=== PATIENT | female | born 1970 | race Caucasian/White ===

== ENCOUNTER 2016-06-20 12:57 | Emergency (ER) | payer OTHER ==
[2016-06-20 13:06] VITALS: RESP 18
--- NOTE | 2016-06-20 13:43 | ED ---
Back Pain HPI - General Chief Complaint: Back Pain/Injury Stated Complaint: hip pain Time Seen by Provider: 06/20/16 13:08 Source: patient, RN notes reviewed, old records reviewed Limitations: no limitations - History of Present Illness Initial Comments: Patient is a 46-year-old female with chief complaint of acute exacerbation of lower back pain and it radiates towards her hip. Patient reports that she does have a history of arthritis. She states that the pain usually lasts one day however this pain is persisted for 4 days. She states that she is currently on a pain contract is receiving [place]. She states that she continued to [place] today with very little relief of her symptoms. She denies any peripheral paresthesias and reports that she's had normal urination and bowel movements. She denies any saddle anesthesia. She states that she has seen her primary care provider recently but denies seeing any orthopedic physician. She denies any recent imaging studies of her hips or lumbar spine. She denies any fever, chills, dysuria, hematuria, nausea, vomiting, abdominal pain. - Related Data Home Medications Medication Instructions Recorded Confirmed Atorvastatin Calcium [Lipitor] 10 mg PO DAILY 11/10/14 05/04/15 Cholecalciferol [Vitamin D3] 1,000 unit PO DAILY 11/10/14 05/04/15 Gabapentin [Neurontin] 300 mg PO BID 11/10/14 05/04/15 Insuln Asp Prt/Insulin Aspart 30 unit SQ HS 11/10/14 05/04/15 [NovoLOG MIX 70-30 VIAL] Insuln Asp Prt/Insulin Aspart 65 unit SQ DAILY 11/10/14 05/04/15 [NovoLOG MIX 70-30 VIAL] Lisinopril 30 mg PO DAILY 11/10/14 05/04/15 buPROPion XL [Wellbutrin XL] 3 300ml.bag PO DAILY 11/10/14 05/04/15 Previous Rx's Medication Instructions Recorded Aspirin EC [Ecotrin] 325 mg PO DAILY #30 tablet. 11/12/14 LORazepam [Ativan] 0.5 mg PO Q8HR PRN #30 tab 11/12/14 Nitroglycerin Sl Tabs [Nitrostat] 0.4 mg SUBLINGUAL Q5M PRN #30 tab 11/12/14 Sulfamethox-Tmp 800-160Mg [Bactrim 1 tab PO Q12HR #10 tab 01/22/16 DS 800-160 mg] Acetaminophen-Codeine 300-30mg 1 tab PO Q6H PRN #15 tablet 06/20/16 [Tylenol #3] Cyclobenzaprine [Flexeril] 10 mg PO TID #20 tab 06/20/16 Ibuprofen [Motrin] 600 mg PO Q6HR PRN #15 tab 06/20/16 Allergies Allergy/AdvReac Type Severity Reaction Status Date / Time No Known Allergies Allergy Verified 06/20/16 13:06 Review of Systems ROS Statement: Those systems with pertinent positive or pertinent negative responses have been documented in the HPI. ROS Other: All systems not noted in ROS Statement are negative. 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 pt stated atatime of this admission does'nt have any feelings of hurting herself or suicidal ideations. Smoking Status: Former smoker Past Alcohol Use History: None Reported Additional Past Alcohol Use History / Comment(s): started at age 13 smokes 1/2 ppd smoking cessation booklet given to pt. pt stated she has tried patches without success and can't seen to quit d/t stress. stated i either smoke or eat to much and i sleep way to much. Past Drug Use History: None Reported - Past Family History Father Additional Family Medical History / Comment(s): hypoglcemia, bipolar depression Mother Family Medical History: Cancer Additional Family Medical History / Comment(s): lung cancer General Exam - General Exam Comments Initial Comments: Well appearing 46 year old female, no acute distress. Limitations: no limitations General appearance: alert, in no apparent distress Head exam: Present: atraumatic, normocephalic, normal inspection Eye exam: Present: normal appearance, PERRL, EOMI. Absent: scleral icterus, conjunctival injection, periorbital swelling ENT exam: Present: normal exam, mucous membranes moist Neck exam: Present: normal inspection. Absent: tenderness, meningismus, lymphadenopathy Respiratory exam: Present: normal lung sounds bilaterally. Absent: respiratory distress, wheezes, rales, rhonchi, stridor Cardiovascular Exam: Present: regular rate, normal rhythm, normal heart sounds. Absent: systolic murmur, diastolic murmur, rubs, gallop, clicks GI/Abdominal exam: Present: soft, normal bowel sounds. Absent: distended, tenderness, guarding, rebound, rigid Extremities exam: Present: normal inspection, full ROM, normal capillary refill. Absent: tenderness, pedal edema, joint swelling, calf tenderness Back exam: Present: normal inspection, tenderness, vertebral tenderness (Lumbar vertebral spinal tenderness.). Absent: CVA tenderness (R), CVA tenderness (L), muscle spasm, paraspinal tenderness Neurological exam: Present: alert, oriented X3, CN II-XII intact Psychiatric exam: Present: normal affect, normal mood Skin exam: Present: warm, dry, intact, normal color. Absent: rash Course Vital Signs 06/20/16 06/20/16 13:03 15:13 Temperature 97 F L 97.9 F Pulse Rate 71 58 L Respiratory 18 18 Rate Blood Pressure 189/91 170/82 O2 Sat by Pulse 99 96 Oximetry Medical Decision Making - Medical Decision Making Patient is a 46-year-old female presenting to the with chief complaint of acute exacerbation of chronic back and hip pain. Patient reports that this pain has been occurring for the past 4 days. She did take [place] earlier today with little relief of her symptoms. She denies any recent imaging studies. X- ray of lumbar and hips were obtained. Patient given IM flexeril and toradol. Xrays are negative for any acute process. Patient given Rx for motrin and flexeril, and advised to take at home pain medication and follow up with orthopedic. Patient understands treatment plan and will comply. REturn parameters discussed. Disposition Clinical Impression: Arthropathy of hip Disposition: HOME SELF-CARE Condition: Good Instructions: Osteoarthritis (ED) Additional Instructions: Patient advised to follow-up with his orthopedic physician. Return to emergency department if any alarming signs or symptoms occur. Follow-up with primary care provider. Prescriptions: Acetaminophen-Codeine 300-30mg [Tylenol #3] 1 tab PO Q6H PRN #15 tablet PRN Reason: Pain Cyclobenzaprine [Flexeril] 10 mg PO TID #20 tab Ibuprofen [Motrin] 600 mg PO Q6HR PRN #15 tab PRN Reason: Pain Referrals: Senthil Valencia MD [Primary Care Provider] - 1-2 days Roberto Glover PAC [PHYSICIAN [employer]ES [employer] FINANCIAL REPORT SERVICE] - 1-2 days Time of Disposition: 14:47
--- NOTE | 2016-06-20 13:58 | XR ---
EXAMINATION TYPE: XR lumbar spine 2 or 3V DATE OF EXAM ORDERED: 06/20/2016 1:52 PM HISTORY: Pain. COMPARISON: None. FINDINGS: There has been a previous cholecystectomy. There is a 3.8 mm calcification overlying the lower pole of the left kidney. Vertebral body height is maintained. There is disc space loss at L5-S1 and a vacuum phenomena at this level. There is a bilateral lysis at L5 with a grade 1 spondylolisthesis of L5 on S1. Alignment is o therwise maintained. No other fractures are seen. The pedicles are intact. IMPRESSION: 1. BILATERAL LYSIS AT L5 WITH A GRADE 1 SPONDYLOLISTHESIS OF L5 ON S1. 2. QUESTIONABLE LEFT RENAL CALCULUS. 3. DEGENERATIVE DISC DISEASE, L5-S1.
[2016-06-20] MEDS ORDERED: KETOROLAC 60 MG/2 ML VIAL IM STA (14:00)
[2016-06-20] MEDS ORDERED: ORPHENADRINE 30 MG/ML 2 ML VIAL IM STA (14:00)
--- NOTE | 2016-06-20 14:57 | XR ---
EXAMINATION TYPE: XR Hip LT and AP Pelvis DATE OF EXAM ORDERED: 06/20/2016 1:58 PM HISTORY: Pain. COMPARISON: None. FINDINGS: There are tubal ligation clips projecting over the pelvis. There are multiple phleboliths within the pelvis. No fracture, dislocation or other acute osseous lesion is seen. The left hip appea rs normal. IMPRESSION: NORMAL PELVIS AND LEFT HIP.
[2016-06-20 15:14] VITALS: BP 170/82; PULSE 58; TEMP 97.9
== END 2016-06-20 15:14 | disposition home or self-care (01) ==
LOC: EC 12:57
DX: M16.12 Unilateral primary osteoarthritis, left hip (principal); M43.17 Spondylolisthesis, lumbosacral region; E11.9 Type 2 diabetes mellitus without complications; E78.5 Hyperlipidemia, unspecified; I10 Essential (primary) hypertension; G62.9 Polyneuropathy, unspecified; F31.9 Bipolar disorder, unspecified; Z87.891 Personal history of nicotine dependence; Z79.899 Other long term (current) drug therapy; Z79.4 Long term (current) use of insulin
CPT/HCPCS: 96372 ×3; 99283; 72100; 73502; 99284; J2360; J1885

== ENCOUNTER 2018-01-27 14:36 | Observation (INO) | payer OTHER ==
[2018-01-27] MEDS ORDERED: SODIUM CHLORIDE 0.9% 1,000 ML IV STA ×2 (15:13)
[2018-01-27] MEDS ORDERED: ASPIRIN 81 MG PO STA (15:13)
[2018-01-27] MEDS ORDERED: NITROGLYCERIN SL TABS 0.4 MG TAB SUBLINGUAL STA (15:13)
[2018-01-27 15:33] LABS: Basophils % (A) 1 %; Eosinophils # (A) 0.1 k/uL (0-0.7); Eosinophils % (A) 1 %; HCT 53.7 % (34.0-46.0); HGB 18.1 gm/dL (11.4-16.0); Lymphocytes # (A) 2.1 k/uL (1.0-4.8); Lymphocytes % (A) 34 %; MCH 30.3 pg (25.0-35.0); MCHC 33.7 g/dL (31.0-37.0); Mean Platelet Volume 8.2; Monocytes # (A) 0.4 k/uL (0-1.0); Monocytes % (A) 6 %; Neutrophils # (A) 3.6 k/uL (1.3-7.7); Neutrophils % (A) 57 %; Platelet Count 173 k/uL (150-450); RBC 5.96 m/uL (3.80-5.40); RDW 12.3 % (11.5-15.5); WBC 6.3 k/uL (3.8-10.6)
[2018-01-27 15:44] LABS: ALT 28 U/L (9-52); AST 29 U/L (14-36); Albumin 4.3 g/dL (3.5-5.0); Alkaline Phosphatase 98 U/L (38-126); Amylase 54 U/L (30-110); Anion Gap 15 mmol/L; Blood Urea Nitrogen 9 mg/dL (7-17); Carbon Dioxide 22 mmol/L (22-30); Chloride 96 mmol/L (98-107); Lipase 211 U/L (23-300); Magnesium 1.5 mg/dL (1.6-2.3); Potassium 4.1 mmol/L (3.5-5.1); Sodium 133 mmol/L (137-145); Total Bilirubin 0.7 mg/dL (0.2-1.3); Total Protein 7.6 g/dL (6.3-8.2)
[2018-01-27 15:46] LABS: Creatine Kinase 62 U/L (30-135)
[2018-01-27 15:52] LABS: Glucose 529 mg/dL (74-99)
--- NOTE | 2018-01-27 15:52 | XR ---
EXAMINATION TYPE: XR chest 2V DATE OF EXAM: 01/27/2018 COMPARISON: Chest x-ray March 23, 2017. HISTORY: Chest pain for 3 days. TECHNIQUE: Frontal and lateral views of the chest are obtained. FINDINGS: There is no focal air space opacity, pleural effusion, or pneumothorax seen. The cardiac silhouette size is within normal limits. The osseous structures are intact. IMPRESSION: No acute process. No significant change from prior.
[2018-01-27] MEDS ORDERED: INSULIN REGULAR 100 UNIT/ML VIAL IV ONE (15:53)
--- NOTE | 2018-01-27 15:56 | ED ---
Chest Pain HPI - General Chief Complaint: Chest Pain Stated Complaint: Chest pain Time Seen by Provider: 01/27/18 15:02 Source: patient, RN notes reviewed, old records reviewed Mode of arrival: wheelchair Limitations: no limitations - History of Present Illness Initial Comments: 47-year-old female presents for 3 days of chest pain chest heaviness. Patient had a cardiac cath 5 years ago her doctor. Jaspreet is her clinical rn. Patient states that she's been feeling as heaviness on her chest. She is a smoker. Diabetic. She is poorly managed. She is reports to not using insulin but does not because that caused her to gain weight. Patient states that she never checks her blood sugar. Patient reports that she did shortness of breath on exertion. Patient denies any recent fever, chills, shortness of breath, back pain, abdominal pain, nausea vomiting, numbness or tingling, dysuria or hematuria, constipation or diarrhea, headaches or visual changes, or any other current symptoms - Related Data Home Medications Medication Instructions Recorded Confirmed Atorvastatin Calcium [Lipitor] 10 mg PO DAILY 11/10/14 01/27/18 Artificial Tears-Hypromellose 1 drop BOTH EYES BID 01/27/18 01/27/18 [Artificial Tear Drops] Aspirin 325 mg PO DAILY 01/27/18 01/27/18 Previous Rx's Medication Instructions Recorded LORazepam [Ativan] 0.5 mg PO Q8HR PRN #30 tab 11/12/14 Nitroglycerin Sl Tabs [Nitrostat] 0.4 mg SUBLINGUAL Q5M PRN #30 tab 11/12/14 Allergies Allergy/AdvReac Type Severity Reaction Status Date / Time sucralose AdvReac Intermediate Nausea & Verified 01/27/18 15:09 [From Splenda (sucralose)] Vomiting & Diarrhea Review of Systems ROS Statement: Those systems with pertinent positive or pertinent negative responses have been documented in the HPI. ROS Other: All systems not noted in ROS Statement are negative. EKG Findings - EKG Comments: EKG Findings:: EKG performed at 1455 shows normal sinus rhythm normal EKG noted. Ventricular rate of 70 bpm. Intervals 184 ms. Jainism 80 ms. QT QTC 390/429 ms. No evidence of ST elevation or T-wave inversion. Past Medical History Past Medical History: Diabetes Mellitus, Hyperlipidemia, Hypertension, Myocardial Infarction ([place]) Additional Past Medical History / Comment(s): Rare migraines, IDDM type II, neuropathy bilateral feet. 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 He of an aortic aneurysm rupture in his 70's Mother Family Medical History: Cancer Additional Family Medical History / Comment(s): Mother of lung cancer that metastasized to her brain when she was in her 30's. General Exam - General Exam Comments Initial Comments: 47-year-old female. Alert and oriented 3. Patient appearsin distress. Limitations: no limitations General appearance: alert, in no apparent distress Head exam: Present: atraumatic, normocephalic, normal inspection Eye exam: Present: normal appearance, PERRL, EOMI. Absent: scleral icterus, conjunctival injection, periorbital swelling ENT exam: Present: normal exam, mucous membranes moist Neck exam: Present: normal inspection. Absent: tenderness, meningismus, lymphadenopathy Respiratory exam: Present: normal lung sounds bilaterally. Absent: respiratory distress, wheezes, rales, rhonchi, stridor Cardiovascular Exam: Present: regular rate, normal rhythm, normal heart sounds. Absent: systolic murmur, diastolic murmur, rubs, gallop, clicks GI/Abdominal exam: Present: soft, normal bowel sounds. Absent: distended, tenderness, guarding, rebound, rigid Extremities exam: Present: normal inspection, full ROM, normal capillary refill. Absent: tenderness, pedal edema, joint swelling, calf tenderness Back exam: Present: normal inspection Neurological exam: Present: alert, oriented X3, CN II-XII intact Psychiatric exam: Present: normal affect, normal mood Skin exam: Present: warm, dry, intact, normal color. Absent: rash Course Vital Signs 01/27/18 14:41 Temperature 98.3 F Pulse Rate 91 Respiratory 16 Rate Blood Pressure 159/96 O2 Sat by Pulse 97 Oximetry Chest Pain MDM - MDM Patient is a 47-year-old female with coronary including diabetes, hyperlipidemia. Patient arrives to emergency room with 3 days of chest pain. It is relieved with aspirin and nitro. Patient is a poorly controlled diabetic. Blood sugar is elevated. He was started on IV fluids and insulin. At this time patient's chest x-ray was reviewed and negative for any acute process. Normal troponin. I am concerned with unstable anginal symptoms as well as the elevated blood sugar the Patient needs further evaluation for chest pain. Likely needing a stress test. Patient will be admitted at this time to Dr. Leon group. Disposition Clinical Impression: Chest pain, Hyperglycemia Disposition: ADMITTED IP TO THIS HOSP Condition: Stable Is patient prescribed a controlled substance at d/c from ED?: No Referrals: Senthil Valencia MD [Primary Care Provider] - 1-2 days Time of Disposition: 17:27
[2018-01-27 15:59] LABS: Creatine Kinase MB 1.4 ng/mL (0.0-2.4); Troponin I <0.012 ng/mL (0.000-0.034)
[2018-01-27] MEDS ORDERED: MORPHINE SULFATE 4 MG/ML SYRINGE IV PRN (17:31)
[2018-01-27] MEDS ORDERED: HEPARIN SODIUM,PORCINE 5,000 UNIT/ML 1 ML VIAL IV ONE (17:31)
[2018-01-27] MEDS ORDERED: NITROGLYCERIN SL TABS 0.4 MG TAB SUBLINGUAL PRN (17:31)
[2018-01-27] MEDS ORDERED: HEPARIN SOD,PORK IN 0.45% NACL 25,000 UNIT in 0.45% NACL 1 500ML.BAG IV SCH (17:45)
[2018-01-27 18:47] LABS: Glucose,Whole Blood 370 mg/dL (75-99)
[2018-01-27 18:51] LABS: D-Dimer 0.35 mg/L FEU (<0.60); INR 1.1 (<1.2); Partial Thromboplastin Time 21.1 sec (22.0-30.0); Prothrombin Time 10.4 sec (9.0-12.0)
[2018-01-27 22:05] LABS: Glucose,Whole Blood 279 mg/dL (75-99)
[2018-01-27 22:48] LABS: Creatine Kinase 46 U/L (30-135)
[2018-01-27 23:02] LABS: Creatine Kinase MB 1.2 ng/mL (0.0-2.4); Troponin I <0.012 ng/mL (0.000-0.034)
[2018-01-28 00:58] LABS: Glucose,Whole Blood 266 mg/dL (75-99)
[2018-01-28] MEDS: INSULIN ASPART 100 UNIT/ML 1 ML 10 ML VIAL SQ SCH ×3 (01:13→12:31)
[2018-01-28 03:25] LABS: Cholesterol 242 mg/dL (<200); HDL Cholesterol 31 mg/dL (40-60); Triglycerides 442 mg/dL (<150)
[2018-01-28 03:51] LABS: Creatine Kinase 43 U/L (30-135)
[2018-01-28 03:59] LABS: Creatine Kinase MB 1.2 ng/mL (0.0-2.4); Troponin I <0.012 ng/mL (0.000-0.034)
[2018-01-28 07:00] LABS: Glucose,Whole Blood 240 mg/dL (75-99)
--- NOTE | 2018-01-28 08:34 | P.CRDCN ---
<ReginaldmontycoleHector - Last Filed: 01/28/18 08:33> History of Present Illness History of present illness: 47-year-old female presenting with constant chest discomfort that would go away when she was sleeping for the last 3 days. No palpitations no other symptoms. Uncontrolled diabetes. Noncompliant with her insulin she stopped it because she thought she was gaining weight. Normal cardiac enzymes normal ECG follow with Dr. Johns Suggest 2-D echo and Doppler study to assess cardiac structure and function given her constant chest discomfort. I don't hear a rub Follow-up with Dr. Johns as an outpatient Diabetes management per primary team Past Medical History Past Medical History: Chest Pain / Angina, Diabetes Mellitus, Hyperlipidemia, Hypertension, Myocardial Infarction ([place]) Additional Past Medical History / Comment(s): 01-27-18 pt wants flu vaccine while here. Rare migraines, IDDM type II, neuropathy bilateral feet.past uti,bipolar depression Last Myocardial Infarction Date:: 2014 History of Any Multi-Drug Resistant Organisms: MRSA Date of last positivie culture/infection: 2013/MRSA MDRO Source:: abdomen Past Surgical History: Cholecystectomy, Heart Catheterization, Tubal Ligation Additional Past Surgical History / Comment(s): Lorenzo eye sx as child to correct lazy eye, Past Anesthesia/Blood Transfusion Reactions: Postoperative Nausea & Vomiting ( PONV) Smoking Status: Current every day smoker - Past Family History Father Additional Family Medical History / Comment(s): Father had hypoglcemia, bipolar depression. He of an aortic aneurysm rupture in his 70's Mother Family Medical History: Cancer Additional Family Medical History / Comment(s): Mother of lung cancer that metastasized to her brain when she was in her 30's. Medications and Allergies Home Medications Medication Instructions Recorded Confirmed Type Atorvastatin Calcium [Lipitor] 10 mg PO DAILY 11/10/14 01/27/18 History LORazepam [Ativan] 0.5 mg PO Q8HR PRN #30 tab 11/12/14 01/27/18 Rx Nitroglycerin Sl Tabs [Nitrostat] 0.4 mg SUBLINGUAL Q5M PRN #30 tab 11/12/14 Rx Artificial Tears-Hypromellose 1 drop BOTH EYES BID 01/27/18 01/27/18 History [Artificial Tear Drops] Aspirin 325 mg PO DAILY 01/27/18 01/27/18 History Allergies Allergy/AdvReac Type Severity Reaction Status Date / Time sucralose AdvReac Intermediate Nausea & Verified 01/27/18 15:09 [From Splenda (sucralose)] Vomiting & Diarrhea Physical Exam Vitals: Vital Signs Temp Pulse Pulse Resp BP BP Pulse Ox 01/28/18 04:29 97.0 F L 70 164/75 96 01/27/18 23:33 97.9 F 66 15 168/93 96 01/27/18 22:45 98 01/27/18 21:59 97.9 F 76 16 177/97 98 01/27/18 21:20 97.7 F 60 18 150/86 99 01/27/18 20:00 97.7 F 57 L 11 L 156/79 99 01/27/18 19:50 61 16 156/79 96 01/27/18 19:40 59 L 16 156/79 98 01/27/18 19:30 64 14 174/94 97 01/27/18 19:20 58 L 16 174/94 99 01/27/18 19:10 60 17 174/94 97 01/27/18 19:00 67 16 175/97 98 01/27/18 18:13 70 17 136/65 94 L 01/27/18 17:00 76 17 129/74 96 01/27/18 16:00 76 19 157/82 94 L 01/27/18 14:41 98.3 F 91 16 159/96 97 Intake and Output 01/27/18 01/28/18 01/28/18 22:59 06:59 14:59 Intake Total 754.333 Balance 754.333 Intake: Intake, IV Titration 754.333 Amount Heparin Sod,Pork in 0.45% 317.333 NaCl 25,000 unit In 0.45 % NaCl 1 500ml.bag @ 9.8 UNITS/KG/HR 20 mls/hr IV .Q24H [facility] Rx#:[id number] Sodium Chloride 0.9% 1, 437 000 ml @ 100 mls/hr IV . Q10H [facility] Rx#:[id number] Other: Weight 96.6 kg Results 01/27/18 15:00 01/27/18 15:00 Cardiac Enzymes 01/27/18 01/27/18 01/27/18 Range/Units 15:00 15:00 21:59 AST 29 (14-36) U/L CK-MB (CK-2) 1.4 1.2 (0.0-2.4) ng/mL Troponin I <0.012 <0.012 (0.000-0.034) ng/mL 01/28/18 Range/Units 02:10 AST (14-36) U/L CK-MB (CK-2) 1.2 (0.0-2.4) ng/mL Troponin I <0.012 (0.000-0.034) ng/mL Coagulation 01/27/18 01/28/18 Range/Units 18:07 02:10 PT 10.4 (9.0-12.0) sec APTT 21.1 L 25.6 (22.0-30.0) sec Lipids 01/28/18 Range/Units 02:10 Triglycerides 442 H (<150) mg/dL Cholesterol 242 H (<200) mg/dL HDL Cholesterol 31 L (40-60) mg/dL CBC 01/27/18 Range/Units 15:00 WBC 6.3 (3.8-10.6) k/uL RBC 5.96 H (3.80-5.40) m/uL Hgb 18.1 H (11.4-16.0) gm/dL Hct 53.7 H (34.0-46.0) % Plt Count 173 (150-450) k/uL Comprehensive Metabolic Panel 01/27/18 Range/Units 15:00 Sodium 133 L (137-145) mmol/L Potassium 4.1 (3.5-5.1) mmol/L Chloride 96 L (98-107) mmol/L Carbon Dioxide 22 (22-30) mmol/L BUN 9 (7-17) mg/dL Creatinine 0.46 L (0.52-1.04) mg/dL Glucose 529 H* (74-99) mg/dL Calcium 10.0 (8.4-10.2) mg/dL AST 29 (14-36) U/L ALT 28 (9-52) U/L Alkaline Phosphatase 98 (38-126) U/L Total Protein 7.6 (6.3-8.2) g/dL Albumin 4.3 (3.5-5.0) g/dL Current Medications Generic Name Dose Route Start Last Admin Trade Name Freq PRN Reason Stop Dose Admin Insulin Aspart 0 unit 01/27/18 21:00 01/28/18 01:13 Novolog SQ 5 unit ACHS [facility] Administration Protocol Morphine Sulfate 4 mg 01/27/18 17:31 Morphine Sulfate (Inj) IV Q5M PRN Chest Pain Nitroglycerin 0.4 mg 01/27/18 17:31 Nitrostat SUBLINGUAL Q5M PRN Chest Pain Intake and Output 01/27/18 01/28/18 01/28/18 22:59 06:59 14:59 Intake Total 754.333 Balance 754.333 Intake: Intake, IV Titration 754.333 Amount Heparin Sod,Pork in 0.45% 317.333 NaCl 25,000 unit In 0.45 % NaCl 1 500ml.bag @ 9.8 UNITS/KG/HR 20 mls/hr IV .Q24H [facility] Rx#:[id number] Sodium Chloride 0.9% 1, 437 000 ml @ 100 mls/hr IV . Q10H [facility] Rx#:[id number] Other: Weight 96.6 kg 01/27/18 15:00 01/27/18 15:00 <Beata Nichole - Last Filed: 01/28/18 10:53> History of Present Illness History of present illness: Mrs. Johnson is a pleasant 47-year-old female past medical history significant for diabetes mellitus, hypertension, dyslipidemia, chronic nicotine dependence regular marijuana use. She denies history of coronary artery disease. She follows with Dr. Zuniga in the office. We've been asked to see her in consultation for symptoms of chest pain. She states for the previous 3 days she has had a constant heavy pressure sensation in the midsternal region with radiation both sides of her chest. No radiation down the arm, back, neck or jaw. This is not associated with shortness of breath, dizziness, palpitations, nausea, vomiting or diaphoresis. Her chest pain has been constant with no specific aggravating or alleviating factors. She states when she goes to sleep at night she doesn't feel the pain persisted and she wakes up it comes back. She states she is under a lot of stress at home and she feels the stressors have been causing her chest discomfort. She also is a diabetic who has not been taking her medications because she states it made her gain weight. Blood sugar on admission was over 500. She underwent cardiac catheterization 2014 which revealed mild 3 vessel coronary artery disease risk factor modifications recommended at that time. EKG reveals sinus mechanism with no acute ST or T wave abnormalities noted. Chest x-ray negative for an acute cardiopulmonary process. Laboratory data reviewed, hemoglobin 18.1, platelets 173, d-dimer 0.35, sodium 133, potassium 4.1, creatinine 0.46, magnesium 1.5, cardiac enzymes negative 3 , and T proBNP 69, lipid panel reviewed. Current cardiac medications include atorvastatin 10 mg daily and aspirin 325 mg daily. She last saw Dr. Zuniga in the office in 2015 and at that time she was on lisinopril 30 mg daily and Norvasc 10 mg daily. At the time of my exam: CONSTITUTIONAL: Denies fever. Denies chills. EYES: Denies blurred vision. Denies vision changes. Denies eye pain. EARS, NOSE, MOUTH & THROAT: Denies headache. Denies sore throat. Denies ear pain. CARDIOVASCULAR: Denies chest pain. Denies shortness of breath. Denies orthopnea. Denies PND. Denies palpitations. RESPIRATORY: Denies cough. GASTROINTESTINAL: Denies abdominal pain. Denies diarrhea. Denies constipation. Denies nausea. Denies vomiting. MUSCULOSKELETAL: Denies myalgias. INTEGUMENTARY: Denies pruitis. Denies rash. NEUROLOGIC: Denies numbness. Denies tingling. Denies weakness. PSYCHIATRIC: Denies anxiety. Denies depression. ENDOCRINE: Denies fatigue. Denies weight change. Denies polydipsia. Denies polyurina. GENITOURINARY: Denies burning, hematuria or urgency with micturation. HEMATOLOGIC: Denies history of anemia. Denies bleeding. Blood pressure 153/91 heart rate 88 afebrile maintaining oxygen saturation on room air GENERAL: This is a 47-year-old female in no apparent distress at the time of my examination. Obese. HEENT: Head is atraumatic, normocephalic. Pupils are equal, round. Sclerae anicteric. Conjunctivae are clear. Mucous membranes of the mouth are moist. Neck is supple. There is no jugular venous distention. No carotid bruit is heard. LUNGS: Clear to auscultation no wheezes, rales or rhonchi. No chest wall tenderness is noted on palpation or with deep breathing. HEART: Regular rate and rhythm without murmurs, rubs or gallops. S1 and S2 heard. ABDOMEN: Soft, nontender. Bowel sounds are heard. No organomegaly noted. EXTREMITIES: No evidence of peripheral edema and no calf tenderness noted. VASCULAR: Radial and dorsalis pedis pulses palpated, no evidence of clubbing. NEUROLOGIC: Patient is awake, alert and oriented x3. ASSESSMENT Chest pain, atypical. An acute coronary event has been ruled out no EKG evidence of ischemia and negative cardiac enzymes. Diabetes mellitus, uncontrolled Hypertension Dyslipidemia Chronic nicotine dependence Marijuana use PLAN An acute coronary event has been ruled out was no EKG evidence of ischemia and negative cardiac enzymes. Obtain 2-D echocardiogram and Doppler study to assess cardiac structure and function. Cardiac medication adjustments to include aspirin 81 mg daily, lisinopril 20 mg dialy and atorvastatin 40 mg daily. Follow-up with Dr. Zuniga in 2-3 weeks. Ongoing medical management of diabetes. No further cardiac workup as an inpatient. Thank you kindly for this consultation. Nurse Practitioner note has been reviewed, I agree with a documented findings and plan of care. Patient was seen and examined. Physical Exam Vitals: Vital Signs Temp Pulse Pulse Resp BP BP Pulse Ox 01/28/18 07:35 98.3 F 80 18 153/91 97 01/28/18 04:29 97.0 F L 70 164/75 96 01/27/18 23:33 97.9 F 66 15 168/93 96 01/27/18 22:45 98 01/27/18 21:59 97.9 F 76 16 177/97 98 01/27/18 21:20 97.7 F 60 18 150/86 99 01/27/18 20:00 97.7 F 57 L 11 L 156/79 99 01/27/18 19:50 61 16 156/79 96 01/27/18 19:40 59 L 16 156/79 98 01/27/18 19:30 64 14 174/94 97 01/27/18 19:20 58 L 16 174/94 99 01/27/18 19:10 60 17 174/94 97 01/27/18 19:00 67 16 175/97 98 01/27/18 18:13 70 17 136/65 94 L 01/27/18 17:00 76 17 129/74 96 01/27/18 16:00 76 19 157/82 94 L 01/27/18 14:41 98.3 F 91 16 159/96 97 Intake and Output 01/27/18 01/28/18 01/28/18 22:59 06:59 14:59 Intake Total 754.333 Balance 754.333 Intake: Intake, IV Titration 754.333 Amount Heparin Sod,Pork in 0.45% 317.333 NaCl 25,000 unit In 0.45 % NaCl 1 500ml.bag @ 9.8 UNITS/KG/HR 20 mls/hr IV .Q24H [facility] Rx#:[id number] Sodium Chloride 0.9% 1, 437 000 ml @ 100 mls/hr IV . Q10H [facility] Rx#:[id number] Other: Weight 96.6 kg Results 01/27/18 15:00 01/27/18 15:00 Cardiac Enzymes 01/27/18 01/27/18 01/27/18 Range/Units 15:00 15:00 21:59 AST 29 (14-36) U/L CK-MB (CK-2) 1.4 1.2 (0.0-2.4) ng/mL Troponin I <0.012 <0.012 (0.000-0.034) ng/mL 01/28/18 Range/Units 02:10 AST (14-36) U/L CK-MB (CK-2) 1.2 (0.0-2.4) ng/mL Troponin I <0.012 (0.000-0.034) ng/mL Coagulation 01/27/18 01/28/18 Range/Units 18:07 02:10 PT 10.4 (9.0-12.0) sec APTT 21.1 L 25.6 (22.0-30.0) sec Lipids 01/28/18 Range/Units 02:10 Triglycerides 442 H (<150) mg/dL Cholesterol 242 H (<200) mg/dL HDL Cholesterol 31 L (40-60) mg/dL CBC 01/27/18 Range/Units 15:00 WBC 6.3 (3.8-10.6) k/uL RBC 5.96 H (3.80-5.40) m/uL Hgb 18.1 H (11.4-16.0) gm/dL Hct 53.7 H (34.0-46.0) % Plt Count 173 (150-450) k/uL Comprehensive Metabolic Panel 01/27/18 Range/Units 15:00 Sodium 133 L (137-145) mmol/L Potassium 4.1 (3.5-5.1) mmol/L Chloride 96 L (98-107) mmol/L Carbon Dioxide 22 (22-30) mmol/L BUN 9 (7-17) mg/dL Creatinine 0.46 L (0.52-1.04) mg/dL Glucose 529 H* (74-99) mg/dL Calcium 10.0 (8.4-10.2) mg/dL AST 29 (14-36) U/L ALT 28 (9-52) U/L Alkaline Phosphatase 98 (38-126) U/L Total Protein 7.6 (6.3-8.2) g/dL Albumin 4.3 (3.5-5.0) g/dL Current Medications Generic Name Dose Route Start Last Admin Trade Name Freq PRN Reason Stop Dose Admin Insulin Aspart 0 unit 01/27/18 21:00 01/28/18 10:06 Novolog SQ 5 unit ACHS [facility] Administration Protocol Morphine Sulfate 4 mg 01/27/18 17:31 Morphine Sulfate (Inj) IV Q5M PRN Chest Pain Nitroglycerin 0.4 mg 01/27/18 17:31 Nitrostat SUBLINGUAL Q5M PRN Chest Pain Intake and Output 01/27/18 01/28/18 01/28/18 22:59 06:59 14:59 Intake Total 754.333 Balance 754.333 Intake: Intake, IV Titration 754.333 Amount Heparin Sod,Pork in 0.45% 317.333 NaCl 25,000 unit In 0.45 % NaCl 1 500ml.bag @ 9.8 UNITS/KG/HR 20 mls/hr IV .Q24H [facility] Rx#:[id number] Sodium Chloride 0.9% 1, 437 000 ml @ 100 mls/hr IV . Q10H STA Rx#:[id number] Other: Weight 96.6 kg 01/27/18 15:00 01/27/18 15:00
[2018-01-28 08:46] VITALS: RESP 18
[2018-01-28 09:28] LABS: Hemoglobin A1C 12.4 % (4.0-6.0)
--- NOTE | 2018-01-28 10:59 | ECHOF ---
Referral Reason: MEASUREMENTS -------- HEIGHT: 170.2 cm WEIGHT: 96.2 kg BP: RVIDd: 2.8 cm (< 3.3) IVSd: 1.6 cm (0.6 - 1.1) LVIDd: 3.8 cm (3.9 - 5.3) LVPWd: 1.6 cm (0.6 - 1.1) IVSs: 2.4 cm LVIDs: 1.7 cm LVPWs: 1.8 cm LAESV Index (A-L): 18.59 ml/m Ao Diam: 2.5 cm (2.0 - 3.7) AV Cusp: 2.0 cm (1.5 - 2.6) LA Diam: 3.2 cm (2.7 - 3.8) MV EXCURSION: 14.924 mm (> 18.000) MV EF SLOPE: 96 mm/s (70 - 150) EPSS: 0.3 cm MV E Mars: 0.66 m/s MV DecT: 208 ms MV A Mars: 0.71 m/s MV E/A Ratio: 0.93 RAP: 5.00 mmHg RVSP: 11.42 mmHg FINDINGS -------- Sinus rhythm. This was a technically good study. The left ventricular size is normal. There is moderate concentric left ventricular hypertrophy. O verall left ventricular systolic function is normal with, an EF between 55 - 60 %. The right ventricle is normal in size and function. The left atrium is normal in size. The right atrium is normal in size. The aortic valve is trileaflet, and appears structurally normal. No aortic stenosis or regurgitation. There is trace mitral regurgitation. Trace tricuspid regurgitation present. The right ventricular systolic pressure, as measured by Dopp ler, is 11.42mmHg. Pulmonic valve appears structurally normal. The aortic root size is normal. There is a trivial pericardial effusion present. CONCLUSIONS -------- 1. Sinus rhythm. 2. This was a technically good study. 3. The left ventricular size is normal. 4. There is moderate concentric left ventricular hypertrophy. 5. Overall left ventricular systolic function is normal with, an EF between 55 - 60 %. 6. The right ventricle is normal in size and function. 7. The left atrium is normal in size. 8. The right atrium is normal in size. 9. The aortic valve is trileaflet, and appears structurally normal. No aortic stenosis or regurgitati on. 10. There is trace mitral regurgitation. 11. Trace tricuspid regurgitation present. 12. The right ventricular systolic pressure, as measured by Doppler, is 11.42mmHg. 13. Pulmonic valve appears structurally normal. 14. The aortic root size is normal. 15. There is a trivial pericardial effusion present. HVAC ENGINEERING TECHNICIAN: Gloria Spencer RDCS
[2018-01-28] MEDS ORDERED: ATORVASTATIN 40 MG TAB PO SCH (11:00)
[2018-01-28] MEDS ORDERED: LISINOPRIL 20 MG TAB PO SCH (11:00)
[2018-01-28] MEDS ORDERED: ASPIRIN 81 MG PO SCH (11:00)
[2018-01-28 12:03] LABS: Glucose,Whole Blood 318 mg/dL (75-99)
[2018-01-28] MEDS ORDERED: metFORMIN 850 MG TAB PO SCH (12:15)
--- NOTE | 2018-01-28 12:17 | P.HPIM ---
History of Present Illness [place] is old female with past medical history of coronary artery disease status post cardiac cath, diabetes mellitus2, diabetic neuropathy, depression hypertension, hyperlipidemia, who presents because of chest pain. Patient states that chest pain is centrally radiating to the left side was severe when she came in for 3 days duration felt like tightness and constant. Associated with some sweating but no nausea and vomiting. On admission her vitals were stable. Labs shows high glucose at 529, creatinine 0.4, sodium 133 corrected for hyperglycemia. Magnesium 1.5. Hemoglobin A1c 12.4%. Repeat blood sugar was 370 and 309. LFT was unremarkable. His x-ray was negative for acute cardiopulmonary process. Professional Golf Tournament Player evaluated the patient and recommended an echocardiography showing ejection fraction of 55-60%. With moderate left ventricular hypertrophy. However patient chest pain is completely resolved by the time I saw her. pt has been cleared by cardiology for discharge patient states she has not been compliant with insulin for almost 1 year now. Patient states she has history of type 2 diabetes for 15-20 years and she was using to take metformin however since her last about 10 years ago they switched her to insulin and she was taken in the last year when she stopped taking it because her weight was almost 300 pounds and she lost about 8 pounds over the cedar. She denies signs symptoms of DKA over this year. And she hasn' t been followed up with her PCP during the same time for this reason. I have detailed discussion with the patient and she agrees to take pills. She agrees to take metformin 850 mg twice a day. And to follow up with lye boiler as an outpatient. appointment was made with on 02/24/18 and she agrees to and states she will call and make appointment with her pcp in one week as instructed to her Patient was cleared by cardiology team for discharge Review of Systems CONSTITUTIONAL: No fever, no malaise, no fatigue. HEENT: No recent visual problems or hearing problems. Denied any sore throat. CARDIOVASCULAR: No orthopnea, PND, no palpitations, no syncope. PULMONARY: No shortness of breath, no cough, no hemoptysis. GASTROINTESTINAL: No diarrhea, no nausea, no vomiting, no abdominal pain. Normoactive bowel sounds. NEUROLOGICAL: No headaches, no weakness, no numbness. HEMATOLOGICAL: Denies any bleeding or petechiae. GENITOURINARY: Denies any burning micturition, frequency, or urgency. MUSCULOSKELETAL/RHEUMATOLOGICAL: Denies any joint pain, swelling, or any muscle pain. ENDOCRINE: Denies any polyuria or polydipsia. Past Medical History Past Medical History: Chest Pain / Angina, Diabetes Mellitus, Hyperlipidemia, Hypertension, Myocardial Infarction ([place]) Additional Past Medical History / Comment(s): 01-27-18 pt wants flu vaccine while here. Rare migraines, IDDM type II, neuropathy bilateral feet.past uti,bipolar depression Last Myocardial Infarction Date:: 2014 History of Any Multi-Drug Resistant Organisms: MRSA Date of last positivie culture/infection: 2013/MRSA MDRO Source:: abdomen Past Surgical History: Cholecystectomy, Heart Catheterization, Tubal Ligation Additional Past Surgical History / Comment(s): Lorenzo eye sx as child to correct lazy eye, Past Anesthesia/Blood Transfusion Reactions: Postoperative Nausea & Vomiting ( PONV) Smoking Status: Current every day smoker - Past Family History Father Additional Family Medical History / Comment(s): Father had hypoglcemia, bipolar depression. He of an aortic aneurysm rupture in his 70's Mother Family Medical History: Cancer Additional Family Medical History / Comment(s): Mother of lung cancer that metastasized to her brain when she was in her 30's. Medications and Allergies Home Medications Medication Instructions Recorded Confirmed Type Atorvastatin Calcium [Lipitor] 10 mg PO DAILY 11/10/14 01/27/18 History LORazepam [Ativan] 0.5 mg PO Q8HR PRN #30 tab 11/12/14 01/27/18 Rx Nitroglycerin Sl Tabs [Nitrostat] 0.4 mg SUBLINGUAL Q5M PRN #30 tab 11/12/14 Rx Artificial Tears-Hypromellose 1 drop BOTH EYES BID 01/27/18 01/27/18 History [Artificial Tear Drops] Aspirin 325 mg PO DAILY 01/27/18 01/27/18 History Allergies Allergy/AdvReac Type Severity Reaction Status Date / Time sucralose AdvReac Intermediate Nausea & Verified 01/27/18 15:09 [From Splenda (sucralose)] Vomiting & Diarrhea Physical Exam Vitals: Vital Signs Temp Pulse Pulse Resp BP BP Pulse Ox 01/28/18 07:35 98.3 F 80 18 153/91 97 01/28/18 04:29 97.0 F L 70 164/75 96 01/27/18 23:33 97.9 F 66 15 168/93 96 01/27/18 22:45 98 01/27/18 21:59 97.9 F 76 16 177/97 98 01/27/18 21:20 97.7 F 60 18 150/86 99 01/27/18 20:00 97.7 F 57 L 11 L 156/79 99 01/27/18 19:50 61 16 156/79 96 01/27/18 19:40 59 L 16 156/79 98 01/27/18 19:30 64 14 174/94 97 01/27/18 19:20 58 L 16 174/94 99 01/27/18 19:10 60 17 174/94 97 01/27/18 19:00 67 16 175/97 98 01/27/18 18:13 70 17 136/65 94 L 01/27/18 17:00 76 17 129/74 96 01/27/18 16:00 76 19 157/82 94 L 01/27/18 14:41 98.3 F 91 16 159/96 97 Intake and Output 01/27/18 01/28/18 01/28/18 22:59 06:59 14:59 Intake Total 754.333 Balance 754.333 Intake: Intake, IV Titration 754.333 Amount Heparin Sod,Pork in 0.45% 317.333 NaCl 25,000 unit In 0.45 % NaCl 1 500ml.bag @ 9.8 UNITS/KG/HR 20 mls/hr IV .Q24H [facility] Rx#:[id number] Sodium Chloride 0.9% 1, 437 000 ml @ 100 mls/hr IV . Q10H STA Rx#:[id number] Other: Weight 96.6 kg GENERAL: The patient is alert and oriented x3, not in any acute distress. Well developed, well nourished. HEENT: Pupils are round and equally reacting to light. EOMI. No scleral icterus. No conjunctival pallor. Normocephalic, atraumatic. No pharyngeal erythema. No thyromegaly. CARDIOVASCULAR: S1 and S2 present. No murmurs, rubs, or gallops. PULMONARY: Chest is clear to auscultation, no wheezing or crackles. ABDOMEN: Soft, nontender, nondistended, normoactive bowel sounds. No palpable organomegaly. MUSCULOSKELETAL: No joint swelling or deformity. EXTREMITIES: No cyanosis, clubbing, or pedal edema. NEUROLOGICAL: Gross neurological examination did not reveal any focal deficits. SKIN: No rashes. Results CBC & Chem 7: 01/27/18 15:00 01/27/18 15:00 Labs: Abnormal Lab Results - Last 24 Hours (Table) 01/27/18 01/27/18 01/27/18 Range/Units 15:00 15:00 18:07 RBC 5.96 H (3.80-5.40) m/uL Hgb 18.1 H (11.4-16.0) gm/dL Hct 53.7 H (34.0-46.0) % APTT 21.1 L (22.0-30.0) sec Sodium 133 L (137-145) mmol/L Chloride 96 L (98-107) mmol/L Creatinine 0.46 L (0.52-1.04) mg/dL Glucose 529 H* (74-99) mg/dL POC Glucose (mg/dL) (75-99) mg/dL Hemoglobin A1c (4.0-6.0) % Magnesium 1.5 L (1.6-2.3) mg/dL Triglycerides (<150) mg/dL Cholesterol (<200) mg/dL HDL Cholesterol (40-60) mg/dL 01/27/18 01/27/18 01/27/18 Range/Units 18:43 21:59 22:01 RBC (3.80-5.40) m/uL Hgb (11.4-16.0) gm/dL Hct (34.0-46.0) % APTT (22.0-30.0) sec Sodium (137-145) mmol/L Chloride (98-107) mmol/L Creatinine (0.52-1.04) mg/dL Glucose (74-99) mg/dL POC Glucose (mg/dL) 370 H 279 H (75-99) mg/dL Hemoglobin A1c 12.4 H (4.0-6.0) % Magnesium (1.6-2.3) mg/dL Triglycerides (<150) mg/dL Cholesterol (<200) mg/dL HDL Cholesterol (40-60) mg/dL 1001/28/18 01/28/18 Range/Units 00:57 02:10 06:56 RBC (3.80-5.40) m/uL Hgb (11.4-16.0) gm/dL Hct (34.0-46.0) % APTT (22.0-30.0) sec Sodium (137-145) mmol/L Chloride (98-107) mmol/L Creatinine (0.52-1.04) mg/dL Glucose (74-99) mg/dL POC Glucose (mg/dL) 266 H 240 H (75-99) mg/dL Hemoglobin A1c (4.0-6.0) % Magnesium (1.6-2.3) mg/dL Triglycerides 442 H (<150) mg/dL Cholesterol 242 H (<200) mg/dL HDL Cholesterol 31 L (40-60) mg/dL Thrombosis Risk Factor Assmnt - Choose All That Apply Any of the Below Risk Factors Present?: Yes Each Factor Represents 1 point: Age 41-60 years, Obesity (BMI >25) Thrombosis Risk Factor Assessment Total Risk Factor Score: 2 Thrombosis Risk Factor Assessment Level: Low Risk Assessment and Plan Assessment: Chest pain, resolved. Cardiac etiology is been ruled out. Type 2 diabetes mellitus, uncontrolled Diabetic neuropathy Noncompliance to treatment. Hypertension Hyperlipidemia Plan: Since 47 years old female who presents with chest pain is completely resolved. Cardiology evaluated the patient's with echocardiogram showing ejection fraction to 55-60%. Continue same treatment. Continue symptomatic treatment. Resume home medications. Monitor lytes and vitals. DVT and GI prophylaxis. Further recommendations based on the clinical course of the patient
--- NOTE | 2018-01-28 12:27 | P.DS ---
Providers Date of admission: 01/27/18 17:27 Attending physician: Andre Leon Consults: 01/27/18 17:32 Consult Physician Urgent Consulting Provider: Leigh Vogel Consult Reason/Comments: Chest pain Do you want consulting provider notified?: Yes Primary care physician: Senthil Valencia [facility] Course: please refer to my H&P from today, including physical exam Lipitor dose was increased from 10 mg to 40 milligrams due to hyperlipidemia Problems and management plan was discussed with the patient in details Patient is found stable and can be discharged home however she needs follow-up as an outpatient. Patient agrees with the appointments. scripts were provided for lisinopril , Lipitor, magnesium oxide, metformin, glucometer and accessory. Patient Condition at Discharge: Stable Plan - Discharge Summary Discharge Rx Participant: Yes New Discharge Prescriptions: No Action Atorvastatin Calcium [Lipitor] 10 mg PO DAILY LORazepam [Ativan] 0.5 mg PO Q8HR PRN #30 tab PRN Reason: Anxiety Nitroglycerin Sl Tabs [Nitrostat] 0.4 mg SUBLINGUAL Q5M PRN #30 tab PRN Reason: Chest Pain Aspirin 325 mg PO DAILY Artificial Tears-Hypromellose [Artificial Tear Drops] 1 drop BOTH EYES BID Discharge Medication List Atorvastatin Calcium [Lipitor] 10 mg PO DAILY 11/10/14 [History] LORazepam [Ativan] 0.5 mg PO Q8HR PRN #30 tab 11/12/14 [Rx] Nitroglycerin Sl Tabs [Nitrostat] 0.4 mg SUBLINGUAL Q5M PRN #30 tab 11/12/14 [Rx ] Artificial Tears-Hypromellose [Artificial Tear Drops] 1 drop BOTH EYES BID 01/27 [History] Aspirin 325 mg PO DAILY 01/27/18 [History] Follow up Appointment(s)/Referral(s): Senthil Valencia MD [Primary Care Provider] - 1-2 days Adam Cortez MD [REFERRING] - 02/24/18 11:00 am Paulo Zuniga MD [Family Provider] - 2 Weeks
[2018-01-28] MEDS: MAGNESIUM SULFATE-D5W PMX 1 GM in DEXTROSE/WATER 1 100ML.BAG IVPB SCH ×2 (12:40→14:19)
[2018-01-28 13:56] VITALS: BMI 33.3
[2018-01-28 15:25] VITALS: BP 144/84; PULSE 77; TEMP 98.3
--- NOTE | 2018-03-02 10:19 | CDI ---
Dear Dr. Webster, Clinical indicators: Pt's labs indicate magnesium was low at 1.5 patient given IVPB Magnesium on 2017. Based on the clinical indicators and your professional judgement. Please complete by selecting one of the options below. -Hypomagnesemia -Unable to determine Thank you for your time, Shreya Sheppard dx: Hypomagnesemia MTDD
== END 2018-01-28 17:00 | disposition home or self-care (01) ==
LOC: EC 14:36 → 1SOBS 17:27 → INTOOBSV 19:10 → OBSVTOIN 19:10 → 1SOBS 20:47
PROVIDERS: ADMIT Hospitalist; ATTEND Hospitalist
DX: R07.89 Other chest pain (principal); F31.30 Bipolar disorder, current episode depressed, mild or moderate severity, unspecified; E11.40 Type 2 diabetes mellitus with diabetic neuropathy, unspecified; E11.65 Type 2 diabetes mellitus with hyperglycemia; Z91.19 Patient's noncompliance with other medical treatment and regimen; E78.5 Hyperlipidemia, unspecified; F17.200 Nicotine dependence, unspecified, uncomplicated; I11.9 Hypertensive heart disease without heart failure; I25.10 Atherosclerotic heart disease of native coronary artery without angina pectoris; I25.2 Old myocardial infarction; Z79.4 Long term (current) use of insulin; Z79.82 Long term (current) use of aspirin; Z79.899 Other long term (current) drug therapy; Z80.1 Family history of malignant neoplasm of trachea, bronchus and lung; Z87.440 Personal history of urinary (tract) infections; Z91.14 Patient's other noncompliance with medication regimen; T38.3X6A Underdosing of insulin and oral hypoglycemic [antidiabetic] drugs, initial encounter; Z91.128 Patient's intentional underdosing of medication regimen for other reason; Z90.49 Acquired absence of other specified parts of digestive tract; Z98.51 Tubal ligation status; Z91.018 Allergy to other foods; R06.02 Shortness of breath; Z86.14 Personal history of Methicillin resistant Staphylococcus aureus infection; Z81.8 Family history of other mental and behavioral disorders; Z80.8 Family history of malignant neoplasm of other organs or systems; E66.9 Obesity, unspecified; Z68.33 Body mass index [BMI] 33.0-33.9, adult; E83.42 Hypomagnesemia
CPT/HCPCS: 96366 ×2; 96367 ×2; 96376; 96361; 96365; 99285; 36415; 93005; 93306; 85379; 83880; 80061; 80053; 82150; 82550 ×2; 82553 ×2; 83690; 83735; 84484 ×2; 85025; 85610; 85730 ×2; 83036; 71046; G0378 ×3; J1644 ×2; J3475

== ENCOUNTER 2019-01-06 14:56 | Observation (INO) | payer OTHER ==
[2019-01-06 15:12] LABS: Glucose,Whole Blood 297 mg/dL (75-99)
[2019-01-06] MEDS ORDERED: SODIUM CHLORIDE 0.9% 2,000 ML IV STA (15:12)
[2019-01-06] MEDS ORDERED: ONDANSETRON 4 MG/2 ML VIAL IVP STA (15:12)
--- NOTE | 2019-01-06 15:19 | ED ---
General Adult HPI - General Chief complaint: Nausea/Vomiting/Diarrhea Stated complaint: NVD Time Seen by Provider: 01/06/19 15:01 Source: patient Mode of arrival: wheelchair Limitations: no limitations - History of Present Illness Initial comments: Patient is a 48-year-old female with history of type 2 diabetes presenting to the emergency department with chief complaint of nausea and vomiting . Patient reports she developed a gradual onset of her symptoms approximately one month ago. Patient reports feeling dehydrated and a very mild, intermittent abdominal pain that is not related to oral intake. Patient reports she develops nausea or vomiting when have either solids or liquids. Patient also reports intermittent diarrhea but states that is her baseline. Patient denies any hemoptysis or hematochezia. Patient denies any back pain. Patient denies any chest pain or shortness of breath. Patient does report a headache but states that is due to her vomiting. Patient went [facility] ED twice and was discharged with fluids and antiemetics. Patient reports she went to [facility] where a CT with contrast was obtained and she was discharged after. Patient reports poor glucose control. Patient does take metformin and Lantus. Patient is scheduled to have an upper GI and a colonoscopy on the 16 of this month. - Related Data Home Medications Medication Instructions Recorded Confirmed Aspirin EC [Ecotrin Low Dose] 81 mg PO DAILY 01/06/19 01/06/19 Insulin Glargine [Lantus] 30 unit SQ HS 01/06/19 01/06/19 Lisinopril 40 mg PO DAILY 01/06/19 01/06/19 Metoclopramide HCl [Reglan] 10 mg PO TID 01/06/19 01/06/19 Metoprolol Succinate (ER) [Toprol 25 mg PO DAILY 01/06/19 01/06/19 Xl] Nicotine [Nicoderm Cq] 1 patch TRANSDERM DAILY 01/06/19 01/06/19 Pioglitazone HCl [Actos] 15 mg PO DAILY 01/06/19 01/06/19 Potassium 99 mg PO DAILY 01/06/19 01/06/19 metFORMIN HCL 1,000 mg PO BID 01/06/19 01/06/19 Previous Rx's Medication Instructions Recorded Atorvastatin [Lipitor] 40 mg PO DAILY #30 tab 01/28/18 Allergies Allergy/AdvReac Type Severity Reaction Status Date / Time sucralose AdvReac Intermediate Nausea & Verified 01/06/19 15:37 [From Splenda (sucralose)] Vomiting & Diarrhea Review of Systems ROS Statement: Those systems with pertinent positive or pertinent negative responses have been documented in the HPI. ROS Other: All systems not noted in ROS Statement are negative. Past Medical History Past Medical History: Chest Pain / Angina, Diabetes Mellitus, Hyperlipidemia, Hypertension, Myocardial Infarction (IA) Additional Past Medical History / Comment(s): 01-27-18 pt wants flu vaccine while here. Rare migraines, IDDM type II, neuropathy bilateral feet.past uti,bipolar depression Last Myocardial Infarction Date:: 2014 History of Any Multi-Drug Resistant Organisms: MRSA Date of last positivie culture/infection: 2013/MRSA MDRO Source:: abdomen Past Surgical History: Cholecystectomy, Heart Catheterization, Tubal Ligation Additional Past Surgical History / Comment(s): Lorenzo eye sx as child to correct lazy eye, Past Anesthesia/Blood Transfusion Reactions: Postoperative Nausea & Vomiting (PONV) Past Psychological History: Bipolar, Depression Smoking Status: Current every day smoker Past Alcohol Use History: None Reported Past Drug Use History: None Reported - Past Family History Father Additional Family Medical History / Comment(s): Father had hypoglcemia, bipolar depression. He of an aortic aneurysm rupture in his 70's Mother Family Medical History: Cancer Additional Family Medical History / Comment(s): Mother of lung cancer that metastasized to her brain when she was in her 30's. General Exam Limitations: no limitations General appearance: alert, in no apparent distress Head exam: Present: atraumatic, normocephalic, normal inspection Eye exam: Present: normal appearance, PERRL, EOMI Pupils: Present: normal accommodation ENT exam: Present: normal exam, normal oropharynx, mucous membranes dry, TM's normal bilaterally, normal external ear exam Neck exam: Present: normal inspection, full ROM Respiratory exam: Present: normal lung sounds bilaterally Cardiovascular Exam: Present: regular rate, normal rhythm, normal heart sounds GI/Abdominal exam: Present: soft, normal bowel sounds. Absent: tenderness, guarding, rebound Extremities exam: Present: normal inspection, full ROM Back exam: Present: normal inspection, full ROM Neurological exam: Present: alert, oriented X3 Psychiatric exam: Present: normal affect, normal mood Skin exam: Present: warm, intact, normal color Course Vital Signs 01/06/19 14:58 Temperature 97.4 F L Pulse Rate 96 Respiratory 20 Rate Blood Pressure 119/75 O2 Sat by Pulse 99 Oximetry Medical Decision Making - Medical Decision Making Patient is a 48-year-old female with history of type 2 diabetes is presenting to the emergency department with a chief complaint of nausea and vomiting. Patient had these symptoms for approximately one month. Patient is already been hospitalized for DKA. Patient had a abdominal CT performed that was indicative of granulomas otherwise unremarkable. Nausea vomiting is unrelated to oral intake. Patient has no abdominal or back pain. No hematuria or hematochezia or hemoptysis. Physical examination is indicative of dehydration due to dry mucous members. Laboratory results indicate a glucose level of 310. Patient has a positive ketones and glucose. ABG is within normal limits although she does have decreased bicarb. Patient given fluids and antiemetics. Patient will be admitted for dehydration. Case discussed with Dr. Echols. Admitting physician is Dr. Riddle. - Lab Data Result diagrams: 01/06/19 15:15 01/06/19 15:15 Lab Results 01/06/19 01/06/19 01/06/19 Range/Units 15:10 15:15 15:15 WBC 8.6 (3.8-10.6) k/uL RBC 5.30 (3.80-5.40) m/uL Hgb 16.0 (11.4-16.0) gm/dL Hct 46.0 (34.0-46.0) % MCV 86.8 (80.0-100.0) fL MCH 30.1 (25.0-35.0) pg MCHC 34.7 (31.0-37.0) g/dL RDW 12.6 (11.5-15.5) % Plt Count 316 (150-450) k/uL Neutrophils % 69 % Lymphocytes % 24 % Monocytes % 5 % Eosinophils % 0 % Basophils % 0 % Neutrophils # 6.0 (1.3-7.7) k/uL Lymphocytes # 2.1 (1.0-4.8) k/uL Monocytes # 0.4 (0-1.0) k/uL Eosinophils # 0.0 (0-0.7) k/uL Basophils # 0.0 (0-0.2) k/uL VBG pH (7.31-7.41) VBG pCO2 (37-51) mmHg VBG HCO3 (24-28) mmol/L Sodium 134 L (137-145) mmol/L Potassium 3.8 (3.5-5.1) mmol/L Chloride 100 (98-107) mmol/L Carbon Dioxide 18 L (22-30) mmol/L Anion Gap 16 mmol/L BUN 16 (7-17) mg/dL Creatinine 0.49 L (0.52-1.04) mg/dL Est GFR (CKD-EPI)AfAm >90 (>60 ml/min/1.73 sqM) Est GFR (CKD-EPI)NonAf >90 (>60 ml/min/1.73 sqM) Glucose 311 H (74-99) mg/dL POC Glucose (mg/dL) 297 H (75-99) mg/dL POC Glu Optical Designer ID Aurea Malagon Plasma Lactic Acid Pro (0.7-2.0) mmol/L Calcium 9.6 (8.4-10.2) mg/dL Phosphorus 3.4 (2.5-4.5) mg/dL Magnesium 1.5 L (1.6-2.3) mg/dL Total Bilirubin 0.9 (0.2-1.3) mg/dL AST 18 (14-36) U/L ALT 20 (9-52) U/L Alkaline Phosphatase 65 (38-126) U/L Total Protein 7.0 (6.3-8.2) g/dL Albumin 4.0 (3.5-5.0) g/dL Amylase 51 (30-110) U/L Lipase 78 (23-300) U/L Urine Color Urine Appearance (Clear) Urine pH (5.0-8.0) Ur Specific [place] (1.001-1.035) Urine Protein (Negative) Urine Glucose (UA) (Negative) Urine Ketones (Negative) Urine Blood (Negative) Urine Nitrite (Negative) Urine Bilirubin (Negative) Urine Urobilinogen (<2.0) mg/dL Ur Leukocyte Esterase (Negative) Urine RBC (0-5) /hpf Urine WBC (0-5) /hpf Ur Squamous Epith Cells (0-4) /hpf Hyaline Casts (0-2) /lpf Urine Mucus (None) /hpf 09/26/19 09/26/19 09/26/19 Range/Units 15:15 16:19 16:19 WBC (3.8-10.6) k/uL RBC (3.80-5.40) m/uL Hgb (11.4-16.0) gm/dL Hct (34.0-46.0) % MCV (80.0-100.0) fL MCH (25.0-35.0) pg MCHC (31.0-37.0) g/dL RDW (11.5-15.5) % Plt Count (150-450) k/uL Neutrophils % % Lymphocytes % % Monocytes % % Eosinophils % % Basophils % % Neutrophils # (1.3-7.7) k/uL Lymphocytes # (1.0-4.8) k/uL Monocytes # (0-1.0) k/uL Eosinophils # (0-0.7) k/uL Basophils # (0-0.2) k/uL VBG pH 7.33 (7.31-7.41) VBG pCO2 42 (37-51) mmHg VBG HCO3 21 L (24-28) mmol/L Sodium (137-145) mmol/L Potassium (3.5-5.1) mmol/L Chloride (98-107) mmol/L Carbon Dioxide (22-30) mmol/L Anion Gap mmol/L BUN (7-17) mg/dL Creatinine (0.52-1.04) mg/dL Est GFR (CKD-EPI)AfAm (>60 ml/min/1.73 sqM) Est GFR (CKD-EPI)NonAf (>60 ml/min/1.73 sqM) Glucose (74-99) mg/dL POC Glucose (mg/dL) (75-99) mg/dL POC Glu Optical Designer ID Plasma Lactic Acid Pro 1.0 (0.7-2.0) mmol/L Calcium (8.4-10.2) mg/dL Phosphorus (2.5-4.5) mg/dL Magnesium (1.6-2.3) mg/dL Total Bilirubin (0.2-1.3) mg/dL AST (14-36) U/L ALT (9-52) U/L Alkaline Phosphatase (38-126) U/L Total Protein (6.3-8.2) g/dL Albumin (3.5-5.0) g/dL Amylase (30-110) U/L Lipase (23-300) U/L Urine Color Yellow Urine Appearance Cloudy H (Clear) Urine pH 6.0 (5.0-8.0) Ur Specific [place] 1.037 H (1.001-1.035) Urine Protein 1+ H (Negative) Urine Glucose (UA) 4+ H (Negative) Urine Ketones 4+ H (Negative) Urine Blood Negative (Negative) Urine Nitrite Negative (Negative) Urine Bilirubin Negative (Negative) Urine Urobilinogen 3.0 (<2.0) mg/dL Ur Leukocyte Esterase Small H (Negative) Urine RBC 4 (0-5) /hpf Urine WBC 9 H (0-5) /hpf Ur Squamous Epith Cells 15 H (0-4) /hpf Hyaline Casts 5 H (0-2) /lpf Urine Mucus Few H (None) /hpf Disposition Clinical Impression: Dehydration, Nausea & vomiting Disposition: ADMITTED IP TO [facility] Condition: Stable Instructions (If sedation given, give patient instructions): Acute Nausea and Vomiting (ED) Additional Instructions: Patient will be admitted Is patient prescribed a controlled substance at d/c from ED?: No Referrals: Senthil Valencia MD [Primary Care Provider] - 1-2 days Time of Disposition: 17:56
[2019-01-06 16:22] LABS: Basophils % (A) 0 %; Eosinophils % (A) 0 %; Lymphocytes # (A) 2.1 k/uL (1.0-4.8); Lymphocytes % (A) 24 %; MCH 30.1 pg (25.0-35.0); MCHC 34.7 g/dL (31.0-37.0); MCV 86.8 fL (80.0-100.0); Mean Platelet Volume 7.4; Monocytes # (A) 0.4 k/uL (0-1.0); Monocytes % (A) 5 %; Neutrophils % (A) 69 %; Platelet Count 316 k/uL (150-450); RDW 12.6 % (11.5-15.5); WBC 8.6 k/uL (3.8-10.6)
[2019-01-06 16:25] LABS: Appearance,Urine Cloudy (Clear); Bilirubin,Urine Negative (Negative); Blood,Urine Negative (Negative); Color,Urine Yellow; Glucose,Urine (UA) 4+ (Negative); Hyaline Casts,Urine 5 /lpf (0-2); Leukocyte Esterase,Urine Small (Negative); Mucus,Urine Few /hpf; Nitrite,Urine Negative (Negative); Protein,Urine 1+ (Negative); RBC,Urine 4 /hpf (0-5); Specific Gravity,Urine 1.037 (1.001-1.035); Squamous Epithelial Cell,Urine 15 /hpf (0-4)
[2019-01-06 16:30] LABS: ALT 20 U/L (9-52); AST 18 U/L (14-36); African American GFR (CKD) >90 (>60 ml/min/1.73 sqM); Alkaline Phosphatase 65 U/L (38-126); Amylase 51 U/L (30-110); Anion Gap 16 mmol/L; Blood Urea Nitrogen 16 mg/dL (7-17); Calcium 9.6 mg/dL (8.4-10.2); Carbon Dioxide 18 mmol/L (22-30); Chloride 100 mmol/L (98-107); Glucose 311 mg/dL (74-99); Magnesium 1.5 mg/dL (1.6-2.3); Phosphorus 3.4 mg/dL (2.5-4.5); Potassium 3.8 mmol/L (3.5-5.1); Sodium 134 mmol/L (137-145); Total Bilirubin 0.9 mg/dL (0.2-1.3)
[2019-01-06 16:30] LABS: VBG PH 7.33 (7.31-7.41)
[2019-01-06 16:37] LABS: Ketones,Urine 4+ (Negative)
[2019-01-06] MEDS ORDERED: NALOXONE 0.4 MG/ML 1 ML VIAL IV PRN (17:46)
[2019-01-06] MEDS ORDERED: SODIUM CHLORIDE 0.9% 500 ML 500 ML IV STA (17:52)
[2019-01-06] MEDS: SODIUM CHLORIDE 0.9% 1,000 ML IV SCH (18:02)
[2019-01-06 18:17] VITALS: BMI 28.5
[2019-01-06 19:37] LABS: Glucose,Whole Blood 204 mg/dL (75-99)
[2019-01-06] MEDS ORDERED: PNEUMOCOCCAL VACC-PNEUMOVAX 23 25 MCG/0.5 ML VIAL IM ONE (21:00)
[2019-01-07] MEDS: SODIUM CHLORIDE 0.9% 1,000 ML IV SCH ×3 (03:41→22:32)
[2019-01-07 06:48] LABS: Glucose,Whole Blood 212 mg/dL (75-99)
[2019-01-07 11:45] LABS: Glucose,Whole Blood 250 mg/dL (75-99)
[2019-01-07] MEDS: ATORVASTATIN 40 MG TAB PO SCH (12:38)
[2019-01-07] MEDS: METOCLOPRAMIDE 10 MG TAB PO SCH ×2 (12:38→16:22)
[2019-01-07] MEDS: METOPROLOL SUCCINATE (ER) 25 MG TAB.ER.24H PO SCH (12:38)
[2019-01-07] MEDS: ASPIRIN 81 MG PO SCH (12:38)
[2019-01-07] MEDS: POTASSIUM CHLORIDE ER 10 MEQ TAB.ER.PRT PO SCH (12:39)
[2019-01-07] MEDS: NICOTINE 21MG/24HR PATCH TRANSDERM SCH (12:39)
[2019-01-07] MEDS: metFORMIN 500 MG TAB PO SCH ×2 (12:39→16:22)
[2019-01-07] MEDS: PIOGLITAZONE 15 MG TAB PO SCH (12:39)
--- NOTE | 2019-01-07 14:11 | P.CONS ---
History of Present Illness - Reason for Consult Consult date: 01/07/19 nausea vomiting Requesting physician: Dileep Riddle - Chief Complaint nausea vomiting - History of Present Illness 48-year-old female patient of Dr. Valencia, with past medical history of cholecystetomy, diabetes mellitus more than 10 years now requiring insulin with uncontrolled blood sugars admitted with intractable nausea vomiting solids and liquids for at least 1 month duration without abdominal pain. She is scheduled for EGD colonoscopy (screening) next month through a [facility] GI provider. Patient states no reports of hematemesis hematochezia or melena. Denies epigastric pain only some discomfort when retching. Blood sugars a month ago were as high as 400 they have been under 300 for the last few weeks. Admission glucose 297. LFTs amylase lipase normal. White count 8.6. Hemoglobin 16. Urine + ketones. No history of EGD or colonoscopy. No history of peptic ulcer disease or GI bleeding. Denies changes in medications However she was placed on Lantus which has improved her blood sugars. No imaging to review. Review of Systems Constitutional: Denies fever, chills, sweats, weight gain, or loss. HEENT: Negative for migraines, blurred vision or loss, earaches, drainage, tinnitus, oral mucosal lesions, dysphagia, or odynophagia. CARDIAC: Negative for chest pain, arrhythmias, or palpitation. RESPIRATORY: Negative for shortness of breath, hemoptysis, cough, or sputum production. GI: See HPI for pertinent findings. : Negative for hematuria, urgency, frequency, polyuria, or dysuria. GYNc: Denies possibility of . Negative vaginal discharge. MUSCULOSKELETAL: Negative for muscle aches, swelling, arthritis, and arthralgias. NEUROLOGIC: Negative for stroke or TIA. ENDOCRINE: Negative for thyroid problems. SKIN: Negative for rash or itching. PSYCHIATRIC: Negative history for depression and anxiety Past Medical History Past Medical History: Chest Pain / Angina, Diabetes Mellitus, Hyperlipidemia, Hypertension, Myocardial Infarction (IA) Additional Past Medical History / Comment(s): Rare migraines, IDDM type II, neuropathy bilateral feet.past uti,bipolar depression Last Myocardial Infarction Date:: 2014 History of Any Multi-Drug Resistant Organisms: MRSA Year Discovered:: 2013/MRSA MDRO Source:: abdomen Past Surgical History: Cholecystectomy, Heart Catheterization, Tubal Ligation Additional Past Surgical History / Comment(s): Lorenzo eye sx as child to correct lazy eye, Past Anesthesia/Blood Transfusion Reactions: Postoperative Nausea & Vomiting (PONV) Past Psychological History: Bipolar, Depression Additional Psychological History / Comment(s): Pt resides with her chinoe. She stated she is able to drive but has no vehicle. She gets to appointments thru her insurance company or by bus. She receives psychiatric care thru [facility]. She states she has had fleeting thoughts of suicide regularly for years but stated "i will never act on them". Smoking Status: Current every day smoker Past Alcohol Use History: None Reported Additional Past Alcohol Use History / Comment(s): Pt started smoking in 1982 and is currently a half pack a day smoker. Past Drug Use History: None Reported Additional Drug Use History / Comment(s): Pt states she smokes marijuana on occasion. - Past Family History Father Additional Family Medical History / Comment(s): Father had hypoglcemia, bipolar depression. He of an aortic aneurysm rupture in his 70's Mother Family Medical History: Cancer Additional Family Medical History / Comment(s): Mother of lung cancer that metastasized to her brain when she was in her 30's. Medications and Allergies Home Medications Medication Instructions Recorded Confirmed Type Atorvastatin [Lipitor] 40 mg PO DAILY #30 tab 01/28/18 01/06/19 Rx Aspirin EC [Ecotrin Low Dose] 81 mg PO DAILY 01/06/19 01/06/19 History Insulin Glargine [Lantus] 30 unit SQ HS 01/06/19 01/06/19 History Lisinopril 40 mg PO DAILY 01/06/19 01/06/19 History Metoclopramide HCl [Reglan] 10 mg PO TID 01/06/19 01/06/19 History Metoprolol Succinate (ER) [Toprol 25 mg PO DAILY 01/06/19 01/06/19 History Xl] Nicotine [Nicoderm Cq] 1 patch TRANSDERM DAILY 01/06/19 01/06/19 History Pioglitazone HCl [Actos] 15 mg PO DAILY 01/06/19 01/06/19 History Potassium 99 mg PO DAILY 01/06/19 01/06/19 History metFORMIN HCL 1,000 mg PO BID 01/06/19 01/06/19 History Allergies Allergy/AdvReac Type Severity Reaction Status Date / Time sucralose AdvReac Intermediate Nausea & Verified 01/06/19 15:37 [From Splenda (sucralose)] Vomiting & Diarrhea Physical Exam Vitals: Vital Signs Temp Pulse Pulse Resp BP BP Pulse Ox 01/07/19 12:00 62 18 01/07/19 08:00 98.1 F 62 18 143/80 99 01/07/19 03:35 16 01/07/19 00:00 98.3 F 83 16 151/80 98 01/06/19 20:00 16 01/06/19 18:15 97.8 F 74 16 137/68 97 01/06/19 18:00 73 16 131/64 98 01/06/19 14:58 97.4 F L 96 20 119/75 99 Intake and Output 01/06/19 01/07/19 01/07/19 22:59 06:59 14:59 Intake Total 480 Balance 480 Intake: Oral 480 Other: Voiding Method Toilet # Voids 1 2 general appearance: The patient is alert, oriented, in no acute distress. HET: Head is normocephalic and atraumatic. Pupils are equal and reactive. Oropharynx is clear without lesions. Neck: Supple without lymphadenopathy. Trachea midline. Heart: S1 S2. Regular rate and rhythm. Lungs: No crackles or wheezes are heard. Abdomen: Soft, nontender, nondistended with bowel sounds. No peritoneal signs. No palpable organomegaly or masses. Extremities: Normal skin color and turgor. No cyanosis, rash, ulceration, clubbing, or edema. Radial and pedal pulses are 2/4 bilaterally. Neurological: No focal deficits. Strength and sensation are grossly intact. Results CBC & Chem 7: 01/06/19 15:15 01/06/19 15:15 Labs: Abnormal Lab Results - Last 24 Hours (Table) 01/06/19 01/06/19 01/06/19 Range/Units 15:10 15:15 15:15 VBG HCO3 (24-28) mmol/L Sodium 134 L (137-145) mmol/L Carbon Dioxide 18 L (22-30) mmol/L Creatinine 0.49 L (0.52-1.04) mg/dL Glucose 311 H (74-99) mg/dL POC Glucose (mg/dL) 297 H (75-99) mg/dL Magnesium 1.5 L (1.6-2.3) mg/dL Urine Appearance Cloudy H (Clear) Ur Specific [place] 1.037 H (1.001-1.035) Urine Protein 1+ H (Negative) Urine Glucose (UA) 4+ H (Negative) Urine Ketones 4+ H (Negative) Ur Leukocyte Esterase Small H (Negative) Urine WBC 9 H (0-5) /hpf Ur Squamous Epith Cells 15 H (0-4) /hpf Hyaline Casts 5 H (0-2) /lpf Urine Mucus Few H (None) /hpf 01/06/19 01/06/19 01/07/19 Range/Units 16:19 19:34 06:47 VBG HCO3 21 L (24-28) mmol/L Sodium (137-145) mmol/L Carbon Dioxide (22-30) mmol/L Creatinine (0.52-1.04) mg/dL Glucose (74-99) mg/dL POC Glucose (mg/dL) 204 H 212 H (75-99) mg/dL Magnesium (1.6-2.3) mg/dL Urine Appearance (Clear) Ur Specific [place] (1.001-1.035) Urine Protein (Negative) Urine Glucose (UA) (Negative) Urine Ketones (Negative) Ur Leukocyte Esterase (Negative) Urine WBC (0-5) /hpf Ur Squamous Epith Cells (0-4) /hpf Hyaline Casts (0-2) /lpf Urine Mucus (None) /hpf 01/07/19 Range/Units 11:43 VBG HCO3 (24-28) mmol/L Sodium (137-145) mmol/L Carbon Dioxide (22-30) mmol/L Creatinine (0.52-1.04) mg/dL Glucose (74-99) mg/dL POC Glucose (mg/dL) 250 H (75-99) mg/dL Magnesium (1.6-2.3) mg/dL Urine Appearance (Clear) Ur Specific [place] (1.001-1.035) Urine Protein (Negative) Urine Glucose (UA) (Negative) Urine Ketones (Negative) Ur Leukocyte Esterase (Negative) Urine WBC (0-5) /hpf Ur Squamous Epith Cells (0-4) /hpf Hyaline Casts (0-2) /lpf Urine Mucus (None) /hpf Assessment and Plan (1) Nausea & vomiting Narrative/Plan: 48-year-old female history of insulin-dependent diabetes mellitus admitted with intractable nausea vomiting hyperglycemia dehydration x1 month without abdominal pain or GI bleeding with positive ketones in urine. Possible underlying diabetic gastroparesis. Scheduled for colonoscopy screening in the outpatient setting next month with a [facility] provider. Current Visit: Yes Status: Acute Code(s): R11.2 - NAUSEA WITH VOMITING, UNSPECIFIED SNOMED Code(s): 15949969 (2) Diabetes Narrative/Plan: Insulin dependent Current Visit: Yes Status: Acute Code(s): E11.9 - TYPE 2 DIABETES MELLITUS WITHOUT COMPLICATIONS SNOMED Code(s): 24143782 (3) Dehydration Current Visit: Yes Status: Acute Code(s): E86.0 - DEHYDRATION SNOMED Code(s): 51994222 Plan: 1. EGD. Gylcemic control. 2. NPO after midnight. 3. Liquids as tolerated. 4. Follow up w/[place] next month for colonoscopy. The distribution analyst has discussed the risks, benefits and alternative therapies for the above-mentioned procedure and for both sedation/analgesia as well as necessary blood product administration, if indicated, as they pertain to this patient. The patient has indicated understanding and acceptance of the risks and procedures discussed. Thank you for this kind referral and the opportunity to participate in the care of your patient. This consultation was discussed with Dr. Zuniga. The impression and plan of care have been directed as dictated.
[2019-01-07 16:52] LABS: Glucose,Whole Blood 252 mg/dL (75-99)
--- NOTE | 2019-01-07 17:36 | P.HPIM ---
History of Present Illness H&P Date: 01/07/19 Chief Complaint: Nausea vomiting History of presenting complaint: This is a 48-year-old patient of Dr. Connelly. Chronic stable medical conditions include diabetes for over 15 years, hypertension, hyperlipidemia, diabetic peripheral neuropathy, bipolar disorder. Patient states for about a month she been having bouts of nausea vomiting. Doesn't for a few days then settles down and back again. Patient not been able to eat much. Patient has a bowel movement every few days. No fever no chills. She was recently at [facility]. She has appointment through her family doctor for to see a bag machine set up operator down in [facility]. Because nausea vomiting is becoming bothersome she decided to present here. Occasional abdominal cramping. Review of systems: GEN.: Tired EYES: None HEENT: None NECK: None RESPIRATORY: None CARDIOVASCULAR: None GASTROINTESTINAL: As above GENITOURINARY: None MUSCULOSKELETAL: . Joints LYMPHATICS: None HEMATOLOGICAL: None PSYCHIATRY: Slightly anxious NEUROLOGICAL: None Past medical history to include: Diabetes mellitus type 2, hypertension, hyperlipidemia, myocardial infarction, peripheral neuropathy, bipolar disorder, Social history: Lives with yolanda. Smokes one half a pack a day for over 35 years. Does marijuana every other day Physical examination: VITAL SIGNS: 97.4, 96, 20, 11 9/75, 99% room air GENERAL: BMI 28.6, sitting at the edge of the bed, tired appearing. EYES: Pupils equal. Conjunctiva normal. HEENT: External appearance of nose and ears normal, oral cavity grossly normal. NECK: JVD not raised; masses not palpable. HEART: First and second heart sounds are normal; no edema. LUNGS: Respiratory rate normal; decreased breath sounds mild wheezing. ABDOMEN: Soft, nontender, liver spleen not palpable, no masses palpable. PSYCH: Alert and oriented x3; mood and affect anxiousl. NEUROLOGICAL: Cranial nerves grossly intact; no facial asymmetry, power and sensation grossly intact. LYMPHATICS: No lymph nodes palpable in the axilla and neck. INVESTIGATIONS, reviewed in the clinical context: White count 8.6 hemoglobin 16 platelets 316 potassium 3.8 creatinine 0.49 Accu-Cheks 297, 204, 212 Assessment: -This is a patient presents with 1 month of nausea vomiting which has been not getting better progressively getting worse. No fever no chills. Has a bowel movement every few days. Appetite is gone down feeling tired rundown. Differential includes diabetic gastro- paresis -Diabetes mellitus type 2 -Essential hypertension -Hyperlipidemia -Coronary artery disease with prior [place] -Diabetic peripheral neuropathy -Bipolar disorder -Chronic nicotine dependence patient cigarette smoker -Suspect underlying COPD from clinical findings and history of smoking Plan: GI was consulted. They'll be getting an EGD tomorrow. Other home medications resumed. Patient is put on liquid diet. Lovenox for DVT prophylaxis. We will order a chest x-ray Smoke cessation counseling: This was done with the patient. Nicotine patch is being given. More than 3 minutes was spent for this - Past Medical History Past Medical History: Chest Pain / Angina, Diabetes Mellitus, Hyperlipidemia, Hypertension, Myocardial Infarction ([place]) Additional Past Medical History / Comment(s): Rare migraines, IDDM type II, neuropathy bilateral feet.past uti,bipolar depression Last Myocardial Infarction Date:: 2014 History of Any Multi-Drug Resistant Organisms: MRSA Date of last positivie culture/infection: 2013/MRSA MDRO Source:: abdomen Past Surgical History: Cholecystectomy, Heart Catheterization, Tubal Ligation Additional Past Surgical History / Comment(s): Lorenzo eye sx as child to correct lazy eye, Past Anesthesia/Blood Transfusion Reactions: Postoperative Nausea & Vomiting (PONV) Past Psychological History: Bipolar, Depression Additional Psychological History / Comment(s): Pt resides with her fiaydee. She stated she is able to drive but has no vehicle. She gets to appointments thru her insurance company or by bus. She receives psychiatric care thru [facility]. She states she has had fleeting thoughts of suicide regularly for years but stated "i will never act on them". Smoking Status: Current every day smoker Past Alcohol Use History: None Reported Additional Past Alcohol Use History / Comment(s): Pt started smoking in 1982 and is currently a half pack a day smoker. Past Drug Use History: None Reported Additional Drug Use History / Comment(s): Pt states she smokes marijuana on occasion. - Past Family History Father Additional Family Medical History / Comment(s): Father had hypoglcemia, bipolar depression. He of an aortic aneurysm rupture in his 70's Mother Family Medical History: Cancer Additional Family Medical History / Comment(s): Mother of lung cancer that metastasized to her brain when she was in her 30's. Medications and Allergies Home Medications Medication Instructions Recorded Confirmed Type Atorvastatin [Lipitor] 40 mg PO DAILY #30 tab 01/28/18 01/06/19 Rx Aspirin EC [Ecotrin Low Dose] 81 mg PO DAILY 01/06/19 01/06/19 History Insulin Glargine [Lantus] 30 unit SQ HS 01/06/19 01/06/19 History Lisinopril 40 mg PO DAILY 01/06/19 01/06/19 History Metoclopramide HCl [Reglan] 10 mg PO TID 01/06/19 01/06/19 History Metoprolol Succinate (ER) [Toprol 25 mg PO DAILY 01/06/19 01/06/19 History Xl] Nicotine [Nicoderm Cq] 1 patch TRANSDERM DAILY 01/06/19 01/06/19 History Pioglitazone HCl [Actos] 15 mg PO DAILY 01/06/19 01/06/19 History Potassium 99 mg PO DAILY 01/06/19 01/06/19 History metFORMIN HCL 1,000 mg PO BID 01/06/19 01/06/19 History Allergies Allergy/AdvReac Type Severity Reaction Status Date / Time sucralose AdvReac Intermediate Nausea & Verified 01/06/19 15:37 [From Splenda (sucralose)] Vomiting & Diarrhea Physical Exam Vitals: Vital Signs Temp Pulse Pulse Resp BP BP Pulse Ox 01/07/19 08:00 98.1 F 62 18 143/80 99 01/07/19 03:35 16 01/07/19 00:00 98.3 F 83 16 151/80 98 01/06/19 20:00 16 01/06/19 18:15 97.8 F 74 16 137/68 97 01/06/19 18:00 73 16 131/64 98 01/06/19 14:58 97.4 F L 96 20 119/75 99 Intake and Output 01/06/19 01/07/19 01/07/19 22:59 06:59 14:59 Other: Voiding Method Toilet # Voids 1 Results CBC & Chem 7: 01/06/19 15:15 01/06/19 15:15 Labs: Abnormal Lab Results - Last 24 Hours (Table) 01/06/19 01/06/19 01/06/19 Range/Units 15:10 15:15 15:15 VBG HCO3 (24-28) mmol/L Sodium 134 L (137-145) mmol/L Carbon Dioxide 18 L (22-30) mmol/L Creatinine 0.49 L (0.52-1.04) mg/dL Glucose 311 H (74-99) mg/dL POC Glucose (mg/dL) 297 H (75-99) mg/dL Magnesium 1.5 L (1.6-2.3) mg/dL Urine Appearance Cloudy H (Clear) Ur Specific [place] 1.037 H (1.001-1.035) Urine Protein 1+ H (Negative) Urine Glucose (UA) 4+ H (Negative) Urine Ketones 4+ H (Negative) Ur Leukocyte Esterase Small H (Negative) Urine WBC 9 H (0-5) /hpf Ur Squamous Epith Cells 15 H (0-4) /hpf Hyaline Casts 5 H (0-2) /lpf Urine Mucus Few H (None) /hpf 01/06/19 01/06/19 01/07/19 Range/Units 16:19 19:34 06:47 VBG HCO3 21 L (24-28) mmol/L Sodium (137-145) mmol/L Carbon Dioxide (22-30) mmol/L Creatinine (0.52-1.04) mg/dL Glucose (74-99) mg/dL POC Glucose (mg/dL) 204 H 212 H (75-99) mg/dL Magnesium (1.6-2.3) mg/dL Urine Appearance (Clear) Ur Specific [place] (1.001-1.035) Urine Protein (Negative) Urine Glucose (UA) (Negative) Urine Ketones (Negative) Ur Leukocyte Esterase (Negative) Urine WBC (0-5) /hpf Ur Squamous Epith Cells (0-4) /hpf Hyaline Casts (0-2) /lpf Urine Mucus (None) /hpf Thrombosis Risk Factor Assmnt - Choose All That Apply Any of the Below Risk Factors Present?: Yes Each Factor Represents 1 point: Age 41-60 years Thrombosis Risk Factor Assessment Total Risk Factor Score: 1 Thrombosis Risk Factor Assessment Level: Low Risk
--- NOTE | 2019-01-07 17:51 | XR ---
EXAMINATION TYPE: XR chest 2V DATE OF EXAM: 01/07/2019 COMPARISON: 01/27/2018 HISTORY: Vomiting TECHNIQUE: Frontal and lateral views of the chest are obtained. FINDINGS: Heart and mediastinum are normal. Lungs are clear. Diaphragm is normal. Bony thorax is int act. IMPRESSION: Normal chest. No change.
[2019-01-07] MEDS: IPRATROPIUM-ALBUTEROL 3 ML NEB INHALATION SCH ×2 (18:06→19:23)
[2019-01-07 20:32] LABS: Glucose,Whole Blood 243 mg/dL (75-99)
[2019-01-07] MEDS: ENOXAPARIN 40 MG/0.4 ML SYRINGE SQ SCH (20:47)
[2019-01-07] MEDS: ONDANSETRON 4 MG/2 ML VIAL IVP PRN (20:51)
[2019-01-07] MEDS ORDERED: INSULIN DETEMIR (LEVEMIR) 100 UNIT/ML SYR SQ SCH (21:00)
[2019-01-08 06:38] LABS: Glucose,Whole Blood 130 mg/dL (75-99)
[2019-01-08] MEDS: IPRATROPIUM-ALBUTEROL 3 ML NEB INHALATION SCH ×2 (07:40→11:27)
[2019-01-08] MEDS: NICOTINE 21MG/24HR PATCH TRANSDERM SCH (07:56)
[2019-01-08 08:03] VITALS: RESP 18
[2019-01-08] MEDS ORDERED: LIDOCAINE 1% INJ 10MG/ML (20 ML MDV) ONE (08:27)
[2019-01-08] MEDS ORDERED: IV FLUID CONTINUATION 1,000 ML IV ONE (08:27)
[2019-01-08] MEDS ORDERED: PROPOFOL 10 MG/ML 20 ML VIAL IV ONE (08:27)
--- NOTE | 2019-01-08 08:38 | P.PCN ---
Date of Procedure: 01/08/19 Procedure(s) Performed: BRIEF HISTORY: Patient is a 48-year-old, pleasant, white female with history of diverticulitis admitted hospital with nausea vomiting for the last 1 month duration.. She denies any abdominal pain and coffee-ground emesis. PROCEDURE PERFORMED: Esophagogastroduodenoscopy With biopsy PREOPERATIVE DIAGNOSIS: chronic nausea vomiting of one month duration IV sedation per anesthesia. PROCEDURE: After informed consent was obtained, the patient was brought into the endoscopy unit. IV sedation was administered by Anesthesia under continuous monitoring. Initially the Olympus GIF-140 video endoscope was inserted into the mouth. Esophagus intubated without any difficulty. It was gradually advanced into the stomach and duodenum and carefully examined. The bulb and the second part of the duodenum appeared normal. biopsies were done from the duodenum to rule out celiac disease. The scope at this time was withdrawn to the stomach, adequately insufflated with air, and upon careful examination, mucosa of the antrum had mild gastritis and biopsies were done from this area. The , body, cardia and the fundus appeared normal. The scope was then withdrawn into the esophagus. Small hiatal hernia noted. The GE junction was located at 39 cm from the incisors. The esophagus appeared normal. There were no erosions or ulcerations seen and the patient tolerated the procedure well. IMPRESSION: 1. Mild antral gastritis 2. Small sliding type hiatal hernia RECOMMENDATIONS: The findings of this examination were discussed with the patient . She was advised to follow with the biopsy results. Continue with Protonix and antiemetics. The gastritis tolerated.
[2019-01-08] MEDS ORDERED: PANTOPRAZOLE 40 MG TABLET PO SCH (08:45)
[2019-01-08] MEDS: ONDANSETRON 4 MG/2 ML VIAL IVP PRN (08:59)
[2019-01-08] MEDS ORDERED: LISINOPRIL 20 MG TAB PO SCH (09:00)
[2019-01-08] MEDS: ASPIRIN 81 MG PO SCH (09:10)
[2019-01-08] MEDS: metFORMIN 500 MG TAB PO SCH (09:10)
[2019-01-08] MEDS: METOCLOPRAMIDE 10 MG TAB PO SCH (09:10)
[2019-01-08] MEDS: METOPROLOL SUCCINATE (ER) 25 MG TAB.ER.24H PO SCH (09:11)
[2019-01-08] MEDS: POTASSIUM CHLORIDE ER 10 MEQ TAB.ER.PRT PO SCH (09:11)
[2019-01-08] MEDS: ATORVASTATIN 40 MG TAB PO SCH (09:11)
[2019-01-08] MEDS: PIOGLITAZONE 15 MG TAB PO SCH (09:11)
[2019-01-08] MEDS: ENOXAPARIN 40 MG/0.4 ML SYRINGE SQ SCH (10:14)
[2019-01-08 11:35] LABS: Glucose,Whole Blood 121 mg/dL (75-99)
[2019-01-08 11:41] VITALS: BP 195/93
[2019-01-08 12:13] VITALS: PULSE 63; TEMP 97.7
--- NOTE | 2019-01-08 22:11 | P.DS ---
Providers Date of admission: 01/06/19 17:20 Expected date of discharge: 01/08/19 Attending physician: Dileep Riddle Consults: 01/07/19 12:00 Consult Physician Routine Consulting Provider: Alfa Vega Consult Reason/Comments: nausea/vomiting/decreased appetite 1 month Do you want consulting provider notified?: Yes Primary care physician: Senthil Valencia [facility] Course: Chief Complaint: Nausea vomiting Hospital course: This is a 48-year-old patient of Dr. Cardenas. Chronic stable medical conditions include diabetes for over 15 years, hypertension, hyperlipidemia, diabetic peripheral neuropathy, bipolar disorder. Patient states for about a month she been having bouts of nausea vomiting. Doesn't for a few days then settles down and back again. Patient not been able to eat much. Patient has a bowel movement every few days. No fever no chills. She was recently at [facility]. She has appointment through her family doctor for to see a bridal stylist sales consultant down in [facility]. Because nausea vomiting is becoming bothersome she decided to present here. Occasional abdominal cramping. Patient underwent EGD by Dr. Elizabeth Zuniga. Antral gastritis was found. Patient started on PPIs. Advised against smoking. Was counseled about her diet. She'll keep her appointment with her other bridal stylist sales consultant that she has from prior to the admission Consultations: Dr. Elizabeth Zuniga from GI Physical examination: LUNGS: Respiratory rate normal; decreased breath sounds mild wheezing. ABDOMEN: Soft, nontender, liver spleen not palpable, no masses palpable. PSYCH: Alert and oriented x3; mood and affect anxiousl. INVESTIGATIONS, reviewed in the clinical context: White count 8.6 hemoglobin 16 platelets 316 potassium 3.8 creatinine 0.49 Accu-Cheks 297, 204, 212 Discharge diagnosis: -Persistent nausea from chronic gastritis, with acute flareup -Diabetes mellitus type 2 -Essential hypertension -Hyperlipidemia -Coronary artery disease with prior [place] -Diabetic peripheral neuropathy -Bipolar disorder -Chronic nicotine dependence patient cigarette smoker -Early COPD Disposition: Home - Patient Condition at Discharge: Stable Plan - Discharge Summary Discharge Rx Participant: Yes New Discharge Prescriptions: New Omeprazole [PriLOSEC] 20 mg PO AC-BID #60 cap Continue Atorvastatin [Lipitor] 40 mg PO DAILY #30 tab Pioglitazone HCl [Actos] 15 mg PO DAILY Metoclopramide HCl [Reglan] 10 mg PO TID Insulin Glargine [Lantus] 30 unit SQ HS metFORMIN HCL 1,000 mg PO BID Metoprolol Succinate (ER) [Toprol XL] 25 mg PO DAILY Lisinopril 40 mg PO DAILY Aspirin EC [Ecotrin Low Dose] 81 mg PO DAILY Potassium 99 mg PO DAILY Nicotine [Nicoderm Cq] 1 patch TRANSDERM DAILY #14 patch Discharge Medication List Atorvastatin [Lipitor] 40 mg PO DAILY #30 tab 01/28/18 [Rx] Aspirin EC [Ecotrin Low Dose] 81 mg PO DAILY 01/06/19 [History] Insulin Glargine [Lantus] 30 unit SQ HS 01/06/19 [History] Lisinopril 40 mg PO DAILY 01/06/19 [History] Metoclopramide HCl [Reglan] 10 mg PO TID 01/06/19 [History] Metoprolol Succinate (ER) [Toprol XL] 25 mg PO DAILY 01/06/19 [History] Pioglitazone HCl [Actos] 15 mg PO DAILY 01/06/19 [History] Potassium 99 mg PO DAILY 01/06/19 [History] metFORMIN HCL 1,000 mg PO BID 01/06/19 [History] Nicotine [Nicoderm Cq] 1 patch TRANSDERM DAILY #14 patch 01/08/19 [Rx] Omeprazole [PriLOSEC] 20 mg PO AC-BID #60 cap 01/08/19 [Rx] Follow up Appointment(s)/Referral(s): bridal stylist sales consultantdr [Other] - 2 Weeks Senthil Valencia MD [Primary Care Provider] - 3 Days Theresa Zuniga MD [STAFF PHYSICIAN] - 1 Week Patient Instructions/Handouts: Acute Nausea and Vomiting (ED) Activity/Diet/Wound Care/Special Instructions: Patient will be admitted no smoking Discharge Disposition: HOME SELF-CARE
== END 2019-01-08 13:25 | disposition home or self-care (01) ==
LOC: EC 14:56 → OBSVTOIN 17:20 → 1SOBS 17:20 → INTOOBSV 17:20 → UNDOADMOB 17:20 → UNDODISIN 01-08 13:25
PROVIDERS: ADMIT Hospitalist; ATTEND Hospitalist
PROC: 0DB78ZX Excision of Stomach, Pylorus, Via Natural or Artificial Opening Endoscopic, Diagnostic (ICD-10-PCS; principal; 2019-01-08 08:00)
DX: K29.50 Unspecified chronic gastritis without bleeding (principal); E78.5 Hyperlipidemia, unspecified; E11.42 Type 2 diabetes mellitus with diabetic polyneuropathy; I10 Essential (primary) hypertension; I25.10 Atherosclerotic heart disease of native coronary artery without angina pectoris; I25.2 Old myocardial infarction; F17.210 Nicotine dependence, cigarettes, uncomplicated; J44.9 Chronic obstructive pulmonary disease, unspecified; E11.65 Type 2 diabetes mellitus with hyperglycemia; E86.0 Dehydration; R19.7 Diarrhea, unspecified; K29.00 Acute gastritis without bleeding; E11.10 Type 2 diabetes mellitus with ketoacidosis without coma; R82.4 Acetonuria; F31.30 Bipolar disorder, current episode depressed, mild or moderate severity, unspecified; K29.80 Duodenitis without bleeding; K44.9 Diaphragmatic hernia without obstruction or gangrene; G43.909 Migraine, unspecified, not intractable, without status migrainosus; Z87.440 Personal history of urinary (tract) infections; Z86.14 Personal history of Methicillin resistant Staphylococcus aureus infection; Z90.49 Acquired absence of other specified parts of digestive tract; Z82.49 Family history of ischemic heart disease and other diseases of the circulatory system; Z81.8 Family history of other mental and behavioral disorders; Z80.1 Family history of malignant neoplasm of trachea, bronchus and lung; Z79.899 Other long term (current) drug therapy; Z79.82 Long term (current) use of aspirin; Z79.4 Long term (current) use of insulin; Z91.018 Allergy to other foods; Z87.19 Personal history of other diseases of the digestive system
CPT/HCPCS: 96361 ×2; 96374; 99285; 36415; 94640; 88305; 80053; 82150; 82803; 83605; 83690; 83735; 84100; 85025; 81001; 81025; 71046; 43239; G0378 ×3; J2405 ×3; J2001; J2704

== ENCOUNTER 2019-04-16 16:06 | Emergency (ER) | payer OTHER ==
[2019-04-16 16:42] VITALS: RESP 18; TEMP 97.5
[2019-04-16] MEDS ORDERED: KETOROLAC 30 MG/ML 1 ML VIAL IVP STA (17:01)
[2019-04-16] MEDS ORDERED: SODIUM CHLORIDE 0.9% 1,000 ML IV STA (17:02)
[2019-04-16] MEDS ORDERED: ONDANSETRON 4 MG/2 ML VIAL IVP STA (17:02)
--- NOTE | 2019-04-16 18:15 | XR ---
EXAMINATION TYPE: XR KUB DATE OF EXAM: 04/16/2019 COMPARISON: NONE HISTORY: Abdominal pain TECHNIQUE: 2 views upright FINDINGS: Bowel gas pattern is normal. There is no sign of intestinal obstruction or pneumoperitoneum . Fecal pattern is normal. There are clips from cholecystectomy. There clips from tubal ligation. The re is no sign of a mass. Lung bases are clear. IMPRESSION: Nonacute abdomen.
[2019-04-16 18:53] VITALS: BP 136/58; PULSE 81
--- NOTE | 2019-04-16 19:48 | ED ---
Abdominal Pain HPI - General Chief Complaint: Abdominal Pain Stated Complaint: Constipated/rectal bleeding Time Seen by Provider: 04/16/19 16:49 Source: patient Mode of arrival: ambulatory Limitations: no limitations - History of Present Illness Initial Comments: Patient is a 49-year-old female with history of constipation presenting to emergency Department with a chief complaint of constipation. Patient states she has not had a solid bowel movement in 6 days. She reports occasional diarrhea but states there is a solid mass near the anus that she is able to feel but not able to pass it. Patient reports attempting manual disimpaction but was only able to move small amounts. She reports rectal pain. He states this morning she noticed some blood after she was working. She does have an known external hemorrhoid. Patient denies any nausea vomiting. Also reports lower abdominal pain that is related to the constipation. Patient reports feeling bloated. Denies any night sweats fevers or chills. Denies history of abdominal surgery aside from tubal ligation. Reports taking MiraLAX with minimal improvement. - Related Data Home Medications Medication Instructions Recorded Confirmed Aspirin EC [Ecotrin Low Dose] 81 mg PO DAILY 01/06/19 01/06/19 Insulin Glargine [Lantus] 30 unit SQ HS 01/06/19 01/06/19 Lisinopril 40 mg PO DAILY 01/06/19 01/06/19 Metoclopramide HCl [Reglan] 10 mg PO TID 01/06/19 01/06/19 Metoprolol Succinate (ER) [Toprol 25 mg PO DAILY 01/06/19 01/06/19 XL] Pioglitazone HCl [Actos] 15 mg PO DAILY 01/06/19 01/06/19 Potassium 99 mg PO DAILY 01/06/19 01/06/19 metFORMIN HCL 1,000 mg PO BID 01/06/19 01/06/19 Previous Rx's Medication Instructions Recorded Atorvastatin [Lipitor] 40 mg PO DAILY #30 tab 01/28/18 Nicotine [Nicoderm Cq] 1 patch TRANSDERM DAILY #14 patch 01/08/19 Omeprazole [PriLOSEC] 20 mg PO AC-BID #60 cap 01/08/19 Allergies Allergy/AdvReac Type Severity Reaction Status Date / Time sucralose AdvReac Intermediate Nausea & Verified 04/16/19 16:42 [From Splenda (sucralose)] Vomiting & Diarrhea Review of Systems ROS Statement: Those systems with pertinent positive or pertinent negative responses have been documented in the HPI. ROS Other: All systems not noted in ROS Statement are negative. Past Medical History Past Medical History: Chest Pain / Angina, Diabetes Mellitus, Hyperlipidemia, Hypertension, Myocardial Infarction ([place]) Additional Past Medical History / Comment(s): Rare migraines, IDDM type II, neuropathy bilateral feet.past uti,bipolar depression Last Myocardial Infarction Date:: 2014 History of Any Multi-Drug Resistant Organisms: MRSA Date of last positivie culture/infection: 2013/MRSA MDRO Source:: abdomen Past Surgical History: Cholecystectomy, Heart Catheterization, Tubal Ligation Additional Past Surgical History / Comment(s): Lorenzo eye sx as child to correct lazy eye, Past Anesthesia/Blood Transfusion Reactions: Postoperative Nausea & Vomiting (PONV) Past Psychological History: Bipolar, Depression Smoking Status: Current every day smoker Past Alcohol Use History: None Reported Past Drug Use History: None Reported - Past Family History Father Additional Family Medical History / Comment(s): Father had hypoglcemia, bipolar depression. He of an aortic aneurysm rupture in his 70's Mother Family Medical History: Cancer Additional Family Medical History / Comment(s): Mother of lung cancer that metastasized to her brain when she was in her 30's. General Exam Limitations: no limitations General appearance: alert, in no apparent distress Head exam: Present: atraumatic, normocephalic, normal inspection Eye exam: Present: normal appearance, PERRL, EOMI Pupils: Present: normal accommodation ENT exam: Present: normal exam, normal oropharynx, mucous membranes moist, TM's normal bilaterally, normal external ear exam Neck exam: Present: normal inspection Respiratory exam: Present: normal lung sounds bilaterally Cardiovascular Exam: Present: regular rate, normal rhythm, normal heart sounds GI/Abdominal exam: Present: soft, distended (Mild distention), tenderness (Lower abdominal tenderness. Negative McBurney point tenderness. Negative rebound. Negative Rovsing, negative obturator.) Rectal exam: Present: normal rectal tone, hemorrhoids (External hemorrhoid), other (Palpable hard stool in the rectum). Absent: normal inspection Extremities exam: Present: normal inspection, full ROM Back exam: Present: normal inspection, full ROM Neurological exam: Present: alert, oriented X3 Psychiatric exam: Present: normal affect, normal mood Skin exam: Present: warm, dry, intact, normal color Course Vital Signs 04/16/19 04/16/19 16:40 18:50 Temperature 97.5 F L Pulse Rate 86 81 Respiratory 18 18 Rate Blood Pressure 104/50 136/58 O2 Sat by Pulse 97 100 Oximetry Medical Decision Making - Medical Decision Making Patient is a 49-year-old female with history of external hemorrhoids, constipation and hiatal hernia presenting to emergency Department with a chief complaint of constipation. Patient is not currently nauseous or vomiting but did report several episodes of vomiting over the last 6 days. She states this is most like secondary to hiatal hernia which she is seeing a GI specialist for. KUB shows no significant stool impaction. On exam patient does have an external hemorrhoid which I suspect is the cause of the bleed. Patient is complaining of rectal pain. I was able to manually disimpact small amounts of stool. I was able to break up the hard stool in the rectum. Soapsuds enema was administered afterward. Patient to have a significant bowel movement but states there are still some amounts of stool in there. I told patient that not all stool will be limited without enema. Patient will be discharged with magnesium citrate. On initial exam patient did have some lower abdominal tenderness. After the disimpaction and enema, the tenderness is was completely resolved. She is not distended edema. Patient reports feeling much better. Patient advised to eat a high-fiber food and drink lots of fluids. Strict return parameters were thoroughly discussed the patient was understanding and agreeable. Case discussed with physician. Disposition Clinical Impression: Constipation, External hemorrhoid Disposition: HOME SELF-CARE Condition: Stable Instructions (If sedation given, give patient instructions): Constipation (DC), High Fiber Diet (ED) Additional Instructions: Please follow with a GI specialist. Take prescribed medication as directed. Drink lots of fluids. Return to emergency department if symptoms worsen. Is patient prescribed a controlled substance at d/c from ED?: No Referrals: Senthil Valencia MD [Primary Care Provider] - 1-2 days Time of Disposition: 20:13
[2019-04-16] MEDS ORDERED: MAGNESIUM CITRATE 296 ML BOTTLE PO ONE (19:51)
== END 2019-04-16 20:32 | disposition home or self-care (01) ==
LOC: EC 16:06
DX: K59.00 Constipation, unspecified (principal); K64.4 Residual hemorrhoidal skin tags; E11.9 Type 2 diabetes mellitus without complications; I10 Essential (primary) hypertension; I25.2 Old myocardial infarction; F17.200 Nicotine dependence, unspecified, uncomplicated; Z79.4 Long term (current) use of insulin; Z79.82 Long term (current) use of aspirin; Z79.899 Other long term (current) drug therapy; Z88.8 Allergy status to other drugs, medicaments and biological substances; Z90.49 Acquired absence of other specified parts of digestive tract
CPT/HCPCS: 74018; 99284; 96374; 96375; 96361 ×3; J2405; J1885

== ENCOUNTER 2019-06-04 00:25 | Inpatient (IN) | payer OTHER ==
[2019-06-04] MEDS ORDERED: SODIUM CHLORIDE 0.9% 500 ML 500 ML IV STA (00:51)
[2019-06-04 01:06] LABS: Basophils % (A) 0 %; Eosinophils % (A) 0 %; Lymphocytes # (A) 0.9 k/uL (1.0-4.8); Lymphocytes % (A) 13 %; MCH 30.6 pg (25.0-35.0); MCHC 31.4 g/dL (31.0-37.0); MCV 97.5 fL (80.0-100.0); Mean Platelet Volume 7.9; Monocytes # (A) 0.4 k/uL (0-1.0); Monocytes % (A) 6 %; Neutrophils # (A) 5.2 k/uL (1.3-7.7); Neutrophils % (A) 78 %; Platelet Count 232 k/uL (150-450); RBC 5.23 m/uL (3.80-5.40); RDW 14.5 % (11.5-15.5); WBC 6.6 k/uL (3.8-10.6)
[2019-06-04] MEDS ORDERED: IPRATROPIUM-ALBUTEROL 3 ML NEB INHALATION STA (01:11)
--- NOTE | 2019-06-04 01:15 | XR ---
EXAMINATION TYPE: XR chest 2V DATE OF EXAM: 06/04/2019 COMPARISON: 01/07/2019 HISTORY: Vomiting TECHNIQUE: 2 views FINDINGS: Heart and mediastinum are normal. Lungs are clear. Diaphragm is normal. Bony thorax appears normal. IMPRESSION: Normal chest. No change.
[2019-06-04 01:16] LABS: ALT 10 U/L (4-34); AST 17 U/L (14-36); African American GFR (CKD) >90 (>60 ml/min/1.73 sqM); Albumin 3.8 g/dL (3.5-5.0); Alkaline Phosphatase 77 U/L (38-126); Anion Gap 19 mmol/L; Blood Urea Nitrogen 14 mg/dL (7-17); Chloride 107 mmol/L (98-107); Glucose 276 mg/dL (74-99); Non-African American GFR(CKD) >90 (>60 ml/min/1.73 sqM); Potassium 4.1 mmol/L (3.5-5.1); Sodium 134 mmol/L (137-145); Total Bilirubin 0.6 mg/dL (0.2-1.3); Total Protein 6.9 g/dL (6.3-8.2)
[2019-06-04 01:17] LABS: Partial Thromboplastin Time 23.4 sec (22.0-30.0); Prothrombin Time 10.2 sec (9.0-12.0)
[2019-06-04 01:19] LABS: Carbon Dioxide 8 mmol/L (22-30)
--- NOTE | 2019-06-04 01:19 | ED ---
General Adult HPI - General Source: patient, RN notes reviewed, old records reviewed Mode of arrival: ambulatory Limitations: no limitations <Rome Chen - Last Filed: 06/04/19 04:01> <Meme Krishnamurthy - Last Filed: 06/06/19 22:27> - General Chief complaint: Shortness of Breath Stated complaint: Weakness Time Seen by Provider: 06/04/19 00:32 - History of Present Illness Initial comments: 49-year-old female patient past medical history of type 2 diabetes, prior NE, presents ED for chief complaint of shortness of breath. Patient presented last 2 days she has had shortness of breath, productive cough. Patient is a cigarette smoker smokes approximately a pack a day. Denies any chest pain. Patient does report that she has had chronic abdominal discomfort, nausea and vomiting for she is following up with gastroenterology. Systemic: Pt denies fatigue, fever/chills, rash. Pt denies weakness, night sweats, weight loss. Neuro: Pt denies headache, visual disturbances, syncope or pre-syncope. HEENT: Pt denies ocular discharge or irritation, otalgia, rhinorrhea, pharyngitis or notable lymphadenopathy. Cardiopulmonary: Pt denies chest pain, SOB, heart palpitations, dyspnea on exertion. Abdominal/GI: Pt denies diarrhea. : Pt denies dysuria, burning w/ urination, frequency/urgency. Denies new onset urinary or bowel incontinence. MSK: Pt denies myalgia, loss of strength or function in extremities. Neuro: Pt denies new onset weakness, paresthesias. (Rome Chen) - Related Data Home Medications Medication Instructions Recorded Confirmed Aspirin [Adult Low Dose Aspirin EC] 81 mg PO DAILY 06/04/19 06/04/19 Atorvastatin [Lipitor] 40 mg PO DAILY 06/04/19 06/04/19 Ertugliflozin Pidolate [Steglatro] 15 mg PO DAILY 06/04/19 06/04/19 Metoprolol Succinate [Toprol XL] 25 mg PO DAILY 06/04/19 06/04/19 Omeprazole [PriLOSEC] 20 mg PO AC-BRKFST 06/04/19 06/04/19 Previous Rx's Medication Instructions Recorded Albuterol Inhaler [Ventolin Hfa 1 - 2 puff INHALATION RT-Q6H PRN 06/06/19 Inhaler] #1 inhaler Budesonide/Formoterol Fumarate 1 puff INHALATION BID #1 inhaler 06/06/19 [Symbicort 80-4.5 Mcg Inhaler] Fluticasone/Salmeterol [Airduo 1 puff INHALATION BID #1 device 06/06/19 Respiclick 113-14 Mcg] Insulin Glargine,Hum.rec.anlog 20 unit SQ HS #0 06/06/19 [Basaglar Kwikpen U-100] Nicotine 21Mg/24Hr Patch [Habitrol] 1 patch TRANSDERM DAILY #14 patch 06/06/19 Oseltamivir [Tamiflu] 75 mg PO Q12HR #10 cap 06/06/19 Allergies Allergy/AdvReac Type Severity Reaction Status Date / Time sucralose AdvReac Intermediate Nausea & Verified 06/04/19 11:13 [From Splenda (sucralose)] Vomiting & Diarrhea Review of Systems ROS Other: All systems not noted in ROS Statement are negative. <Rome Chen - Last Filed: 06/04/19 04:01> ROS Other: All systems not noted in ROS Statement are negative. <Meme Krishnamurthy - Last Filed: 06/06/19 22:27> ROS Statement: Those systems with pertinent positive or pertinent negative responses have been documented in the HPI. Past Medical History Past Medical History: Chest Pain / Angina, Diabetes Mellitus, Hyperlipidemia, Hypertension, Myocardial Infarction ([place]) Additional Past Medical History / Comment(s): Rare migraines, IDDM type II, neuropathy bilateral feet.past uti,bipolar depression Last Myocardial Infarction Date:: 2014 History of Any Multi-Drug Resistant Organisms: MRSA Date of last positivie culture/infection: 2013/MRSA MDRO Source:: abdomen Past Surgical History: Cholecystectomy, Heart Catheterization, Tubal Ligation Additional Past Surgical History / Comment(s): Lorenzo eye sx as child to correct lazy eye, Past Anesthesia/Blood Transfusion Reactions: Postoperative Nausea & Vomiting (PONV) Past Psychological History: Bipolar, Depression Smoking Status: Current every day smoker Past Alcohol Use History: Rare Past Drug Use History: None Reported, Marijuana - Past Family History Father Additional Family Medical History / Comment(s): Father had hypoglcemia, bipolar depression. He of an aortic aneurysm rupture in his 70's Mother Family Medical History: Cancer Additional Family Medical History / Comment(s): Mother of lung cancer that metastasized to her brain when she was in her 30's. <Rome Chen - Last Filed: 06/04/19 04:01> General Exam Limitations: no limitations <Rome Chen - Last Filed: 06/04/19 04:01> - General Exam Comments Initial Comments: Constitutional: NAD, AOX3, Pt has pleasant affect. HEENT: NC/AT, trachea midline, neck supple, no lymphadenopathy. Posterior pharynx non erythematous, without exudates. External ears appear normal, without discharge. Mucous membranes moist. Eyes PERRLA, EOM intact. There is no scleral icterus. No pallor noted. Cardiopulmonary: RRR, no murmurs, rubs or gallops, no JVD noted. Wheezing noted in anterior lung marquez.. No peripheral edema. Abdominal exam: Abdomen soft and non-distended. Abdomen non-tender to palpation in all 4 quadrants. Bowel sounds active in LLQ. No hepatosplenomegaly. No ecchymosis Neuro: CN II-XII grossly intact. No nuchal rigidity. No raccon eyes, no gotti sign, no hemotympanum. No cervical spinal tenderness. MSK: No posterior calf tenderness bilaterally, homans sign negative bilaterally. Posterior tibialis and radial pulse +2 bilaterally. Sensation intact in upper and lower extremities. Full active ROM in upper and lower extremities, 5/5 stregnth. (Rome Chen) Course Vital Signs 06/04/19 06/04/19 06/04/19 00:30 01:41 01:50 Temperature 97.7 F Pulse Rate 76 94 95 Respiratory 20 18 18 Rate Blood Pressure 114/82 O2 Sat by Pulse 100 Oximetry 06/04/19 06/04/19 03:41 03:51 Temperature 97.8 F 97.6 F Pulse Rate 87 Respiratory 18 20 Rate Blood Pressure 122/76 O2 Sat by Pulse 98 Oximetry Medical Decision Making - Lab Data Result diagrams: 06/04/19 00:35 06/04/19 00:35 - EKG Data -: EKG Interpreted by Me (and Dr. Krishnamurthy ) <Rome Chen - Last Filed: 06/04/19 04:01> - Lab Data Result diagrams: 06/06/19 04:36 06/06/19 04:36 <Meme Krishnamurthy - Last Filed: 06/06/19 22:27> - Medical Decision Making 49-year-old female patient past medical history of type 2 diabetes, prior NE, presents ED for chief complaint of shortness of breath. Patient presented last 2 days she has had shortness of breath, productive cough. Patient is a cigarette smoker smokes approximately a pack a day. Denies any chest pain. Patient does report that she has had chronic abdominal discomfort, nausea and vomiting for she is following up with gastroenterology. Patient fell signs are stable, afebrile. Physical exam did display wheezing. Laboratory investigations are obtained. Patient is found to be in DKA. Patient also influenza positive. PH 7.18. Venous blood gas bicarb 9. A portable negative. Acetone positive. Influenza is positive. Patient initiated on Tamiflu. Ja t administered 1 dose of steroids to COPD exacerbation. Patient she event DKA protocol insulin, D5 half with dextrose. Patient be admitted to the ICU. Case discussed in depth with Dr. Krishnamurthy. (Rome Chen) I was available for consultation in the emergency department. The history and physical exam were done by the midlevel provider. I was consulted for this patients care. I reviewed the case with the midlevel provider and based on their presentation of the patient, I agree with the assessment, medical decision making and plan of care as documented. I evaluated the patient myself. Patient presented with shortness of breath and found to have influenza. Patient also in DKA. As sugars are near 250, we did initiate an insulin gtt on the patient and will send her to the ICU. I discussed the case with Dr. Gonsales who accepted the patient into the ICU and to Dr. Riddle who was the admitting doctor. Chart was dictated using [employer] dictation software. Attempts were made to correct any dictation errors however some typographical errors may persist. (Meme Krishnamurthy) - Lab Data Lab Results 06/04/19 06/04/19 06/04/19 Range/Units 00:35 00:35 00:35 WBC 6.6 (3.8-10.6) k/uL RBC 5.23 (3.80-5.40) m/uL Hgb 16.0 (11.4-16.0) gm/dL Hct 51.0 H (34.0-46.0) % MCV 97.5 (80.0-100.0) fL MCH 30.6 (25.0-35.0) pg MCHC 31.4 (31.0-37.0) g/dL RDW 14.5 (11.5-15.5) % Plt Count 232 (150-450) k/uL Neutrophils % 78 % Lymphocytes % 13 % Monocytes % 6 % Eosinophils % 0 % Basophils % 0 % Neutrophils # 5.2 (1.3-7.7) k/uL Lymphocytes # 0.9 L (1.0-4.8) k/uL Monocytes # 0.4 (0-1.0) k/uL Eosinophils # 0.0 (0-0.7) k/uL Basophils # 0.0 (0-0.2) k/uL PT (9.0-12.0) sec INR (<1.2) APTT (22.0-30.0) sec Sodium 134 L (137-145) mmol/L Potassium 4.1 (3.5-5.1) mmol/L Chloride 107 (98-107) mmol/L Carbon Dioxide 8 L* (22-30) mmol/L Anion Gap 19 mmol/L BUN 14 (7-17) mg/dL Creatinine 0.64 (0.52-1.04) mg/dL Est GFR (CKD-EPI)AfAm >90 (>60 ml/min/1.73 sqM) Est GFR (CKD-EPI)NonAf >90 (>60 ml/min/1.73 sqM) Glucose 276 H (74-99) mg/dL Plasma Lactic Acid Pro (0.7-2.0) mmol/L Calcium 9.0 (8.4-10.2) mg/dL Total Bilirubin 0.6 (0.2-1.3) mg/dL AST 17 (14-36) U/L ALT 10 (4-34) U/L Alkaline Phosphatase 77 (38-126) U/L Troponin I (0.000-0.034) ng/mL Total Protein 6.9 (6.3-8.2) g/dL Albumin 3.8 (3.5-5.0) g/dL Lipase (23-300) U/L Acetone, Qual (Negative) Influenza Type A RNA Detected H (Not Detectd) Influenza Type B (PCR) Not Detected (Not Detectd) 06/04/19 06/04/19 06/04/19 Range/Units 00:35 00:35 00:35 WBC (3.8-10.6) k/uL RBC (3.80-5.40) m/uL Hgb (11.4-16.0) gm/dL Hct (34.0-46.0) % MCV (80.0-100.0) fL MCH (25.0-35.0) pg MCHC (31.0-37.0) g/dL RDW (11.5-15.5) % Plt Count (150-450) k/uL Neutrophils % % Lymphocytes % % Monocytes % % Eosinophils % % Basophils % % Neutrophils # (1.3-7.7) k/uL Lymphocytes # (1.0-4.8) k/uL Monocytes # (0-1.0) k/uL Eosinophils # (0-0.7) k/uL Basophils # (0-0.2) k/uL PT 10.2 (9.0-12.0) sec INR 1.0 (<1.2) APTT 23.4 (22.0-30.0) sec Sodium (137-145) mmol/L Potassium (3.5-5.1) mmol/L Chloride (98-107) mmol/L Carbon Dioxide (22-30) mmol/L Anion Gap mmol/L BUN (7-17) mg/dL Creatinine (0.52-1.04) mg/dL Est GFR (CKD-EPI)AfAm (>60 ml/min/1.73 sqM) Est GFR (CKD-EPI)NonAf (>60 ml/min/1.73 sqM) Glucose (74-99) mg/dL Plasma Lactic Acid Pro 1.3 (0.7-2.0) mmol/L Calcium (8.4-10.2) mg/dL Total Bilirubin (0.2-1.3) mg/dL AST (14-36) U/L ALT (4-34) U/L Alkaline Phosphatase (38-126) U/L Troponin I <0.012 (0.000-0.034) ng/mL Total Protein (6.3-8.2) g/dL Albumin (3.5-5.0) g/dL Lipase (23-300) U/L Acetone, Qual (Negative) Influenza Type A RNA (Not Detectd) Influenza Type B (PCR) (Not Detectd) 06/04/19 Range/Units 00:35 WBC (3.8-10.6) k/uL RBC (3.80-5.40) m/uL Hgb (11.4-16.0) gm/dL Hct (34.0-46.0) % MCV (80.0-100.0) fL MCH (25.0-35.0) pg MCHC (31.0-37.0) g/dL RDW (11.5-15.5) % Plt Count (150-450) k/uL Neutrophils % % Lymphocytes % % Monocytes % % Eosinophils % % Basophils % % Neutrophils # (1.3-7.7) k/uL Lymphocytes # (1.0-4.8) k/uL Monocytes # (0-1.0) k/uL Eosinophils # (0-0.7) k/uL Basophils # (0-0.2) k/uL PT (9.0-12.0) sec INR (<1.2) APTT (22.0-30.0) sec Sodium (137-145) mmol/L Potassium (3.5-5.1) mmol/L Chloride (98-107) mmol/L Carbon Dioxide (22-30) mmol/L Anion Gap mmol/L BUN (7-17) mg/dL Creatinine (0.52-1.04) mg/dL Est GFR (CKD-EPI)AfAm (>60 ml/min/1.73 sqM) Est GFR (CKD-EPI)NonAf (>60 ml/min/1.73 sqM) Glucose (74-99) mg/dL Plasma Lactic Acid Pro (0.7-2.0) mmol/L Calcium (8.4-10.2) mg/dL Total Bilirubin (0.2-1.3) mg/dL AST (14-36) U/L ALT (4-34) U/L Alkaline Phosphatase (38-126) U/L Troponin I (0.000-0.034) ng/mL Total Protein (6.3-8.2) g/dL Albumin (3.5-5.0) g/dL Lipase 53 (23-300) U/L Acetone, Qual Positive (Negative) Influenza Type A RNA (Not Detectd) Influenza Type B (PCR) (Not Detectd) - EKG Data EKG Comments: Ventricular rate 95. Phone 64, QRS 96, QT/QTC 394/495. Sensory them with preferential complexes. Possible anterior infarct age undetermined. No concern of acute ischemia at this time. (Rome Chen) Critical Care Time Critical Care Time: Yes Total Critical Care Time: 33 <Rome Chen - Last Filed: 06/04/19 04:01> Disposition Is patient prescribed a controlled substance at d/c from ED?: No <Rome Chen - Last Filed: 06/04/19 04:01> <Meme Krishnamurthy - Last Filed: 06/06/19 22:27> Clinical Impression: DKA (diabetic ketoacidoses), COPD exacerbation, Influenza A Disposition: ADMITTED IP TO THIS HOSP Condition: Stable
[2019-06-04] MEDS ORDERED: SODIUM CHLORIDE 0.9% 1,000 ML IV ONE (01:23)
[2019-06-04] MEDS ORDERED: INSULIN ASPART (NovoLOG) 100 UNIT/ML VIAL SQ ONE ×2 (01:32)
[2019-06-04] MEDS ORDERED: OSELTAMIVIR 75 MG CAP PO STA (01:36)
[2019-06-04] MEDS ORDERED: SODIUM CHLORIDE 0.9% 1,000 ML IV SCH (01:45)
[2019-06-04 02:01] LABS: Glucose,Whole Blood 241 mg/dL (75-99)
[2019-06-04 02:01] LABS: VBG PH 7.18 (7.31-7.41)
[2019-06-04] MEDS: D5-0.45% NACL WITH KCL 20MEQ/L 1,000 ML IV SCH ×3 (02:14→15:24)
[2019-06-04] MEDS: INSULIN REGULAR 100 UNIT in SODIUM CHLORIDE 0.9% 100 ML IV SCH ×2 (02:18→11:30)
[2019-06-04] MEDS ORDERED: NALOXONE 0.4 MG/ML 1 ML VIAL IV PRN ×2 (02:51→05:04)
[2019-06-04] MEDS ORDERED: methylPREDNISolone SOD SUCCI 125 MG/2 ML VIAL IV STA (02:56)
[2019-06-04 03:03] LABS: Glucose,Whole Blood 242 mg/dL (75-99)
[2019-06-04 03:42] LABS: Glucose,Whole Blood 214 mg/dL (75-99)
[2019-06-04 03:57] LABS: Glucose,Whole Blood 196 mg/dL (75-99)
[2019-06-04 05:04] LABS: Glucose,Whole Blood 188 mg/dL (75-99)
[2019-06-04 05:26] LABS: African American GFR (CKD) >90 (>60 ml/min/1.73 sqM); Anion Gap 10 mmol/L; Blood Urea Nitrogen 12 mg/dL (7-17); Calcium 8.4 mg/dL (8.4-10.2); Carbon Dioxide 11 mmol/L (22-30); Chloride 112 mmol/L (98-107); Glucose 191 mg/dL (74-99); Non-African American GFR(CKD) >90 (>60 ml/min/1.73 sqM); Potassium 3.4 mmol/L (3.5-5.1); Sodium 133 mmol/L (137-145)
[2019-06-04 05:30] LABS: Phosphorus 0.6 mg/dL (2.5-4.5)
[2019-06-04 05:31] LABS: Basophils % (A) 0 %; Eosinophils % (A) 0 %; HCT 46.3 % (34.0-46.0); HGB 15.1 gm/dL (11.4-16.0); Lymphocytes # (A) 0.7 k/uL (1.0-4.8); Lymphocytes % (A) 10 %; MCH 30.9 pg (25.0-35.0); MCHC 32.5 g/dL (31.0-37.0); Mean Platelet Volume 7.9; Monocytes # (A) 0.3 k/uL (0-1.0); Monocytes % (A) 4 %; Neutrophils # (A) 5.4 k/uL (1.3-7.7); Neutrophils % (A) 84 %; Platelet Count 203 k/uL (150-450); RBC 4.88 m/uL (3.80-5.40); RDW 14.4 % (11.5-15.5); WBC 6.4 k/uL (3.8-10.6)
[2019-06-04] MEDS ORDERED: Potassium Replacement Protocol 1 EACH MISC MISCELLANE PRN (05:32)
[2019-06-04] MEDS ORDERED: Phosphorus Replacement Protoco 1 EACH MISC MISCELLANE PRN (05:41)
[2019-06-04] MEDS: POTASSIUM CHLORIDE ER 20 MEQ TAB.ER PO SCH ×2 (05:51→06:49)
[2019-06-04 05:58] LABS: Glucose,Whole Blood 181 mg/dL (75-99)
[2019-06-04] MEDS: POTASSIUM PHOSPHATE 10 MMOL in SODIUM CHLORIDE 0.9% 250 ML IV SCH ×3 (06:20→11:30)
--- NOTE | 2019-06-04 06:33 | XR ---
EXAMINATION TYPE: XR chest 1V DATE OF EXAM: 06/04/2019 HISTORY: COPD exac, flu. REFERENCE: Previous study dated 06/04/2019. FINDINGS: The lungs remain clear. Pleural spaces are clear. The heart is not enlarged. IMPRESSION: NO ACTIVE INTRATHORACIC DISEASE.
[2019-06-04 07:02] LABS: Glucose,Whole Blood 183 mg/dL (75-99)
[2019-06-04] MEDS ORDERED: methylPREDNISolone SOD SUCCI 125 MG/2 ML VIAL IV SCH (08:00)
[2019-06-04] MEDS: OSELTAMIVIR 75 MG CAP PO SCH ×2 (08:44→21:19)
[2019-06-04 09:03] LABS: Glucose,Whole Blood 182 mg/dL (75-99)
[2019-06-04 09:07] LABS: African American GFR (CKD) >90 (>60 ml/min/1.73 sqM); Anion Gap 9 mmol/L; Blood Urea Nitrogen 11 mg/dL (7-17); Carbon Dioxide 13 mmol/L (22-30); Chloride 112 mmol/L (98-107); Glucose 156 mg/dL (74-99); Non-African American GFR(CKD) >90 (>60 ml/min/1.73 sqM); Potassium 3.7 mmol/L (3.5-5.1); Sodium 134 mmol/L (137-145)
[2019-06-04 09:16] LABS: Phosphorus 0.9 mg/dL (2.5-4.5)
[2019-06-04] MEDS: IPRATROPIUM-ALBUTEROL 3 ML NEB INHALATION SCH ×5 (09:23→23:51)
[2019-06-04 10:03] LABS: Glucose,Whole Blood 208 mg/dL (75-99)
--- NOTE | 2019-06-04 10:32 | P.CNPUL ---
History of Present Illness Consult date: 06/04/19 Reason for consult: dyspnea, other (Critical care management/DKA) Chief complaint: Vomiting, weakness, shortness of breath, cough congestion History of present illness: This is a very pleasant 49-year-old female patient who follows with Dr. Valencia as her primary care provider. She has a history of diabetes mellitus type 2, hyperlipidemia, hypertension, bipolar disorder, previous MRSA infection of the abdomen in 2013, depression, chronic and ongoing tobacco dependence of 35 years. She had been diagnosed with a small hiatal hernia and had previously been seen by Dr. Zuniga and was told she has a small hiatal hernia. She states since she has been having ongoing issues with frequent vomiting. Kourtney priest has sought the advice of a second GI physician and was attempting on gastric emptying stomach at home Thursday that she could not complete that she began vomiting prior to finishing this study. She presented here to the emergency room earlier this morning with 2 days of shortness of breath, cough or congestion ongoing nausea and vomiting. Chest x-ray showed no acute pulmonary process. She did test positive for influenza A. She was found to be in DKA. She is currently seen in consultation in the intensive care unit. She is awake and alert in no acute distress. White count 6.4. Hemoglobin 15.1. Sodium 134. Potassium 3.7. Chloride 112. Carbon dioxide has increased from 8-13. Cre atinine 0.42. Anion gap has improved from 19-9. Acetone positive. Phosphorus is being replaced. She is tolerating small amount of food. Current glucose 208. She is currently on a insulin drip at 8.1 units per hour. Tamiflu. D5 and half-normal saline with 20 mEq of K Ciel at 150 MLS per hour. Review of Systems REVIEW OF SYSTEMS: CONSTITUTIONAL: Denies any recent significant weight loss or weight gain. EYES: Denies change in vision. EARS, NOSE, MOUTH, THROAT: Denies headaches, denies sore throat. CARDIOVASCULAR: Denies chest pain, palpitations or syncopal episodes. RESPIRATORY: Positive for shortness of breath, cough, congestion no hemoptysis. GASTROINTESTINAL: Positive for ongoing issues with vomiting GENITOURINARY: Denies hematuria, denies infections. MUSKULOSKELETAL: Denies pain, denies swelling. INTEGUMENTARY: Denies rash, denies eczema. NEUROLOGICAL: Denies recent memory loss, no recent seizure activity. PSYCHIATRIC: Denies anxiety, denies depression. HEMATOLOGIC/LYMPHATIC: Denies anemia, denies enlarged lymph nodes. Past Medical History Past Medical History: Chest Pain / Angina, Diabetes Mellitus, Hyperlipidemia, Hypertension, Myocardial Infarction ([place]) Additional Past Medical History / Comment(s): Rare migraines, IDDM type II, neuropathy bilateral feet.past uti,bipolar depression Last Myocardial Infarction Date:: 2014 History of Any Multi-Drug Resistant Organisms: MRSA Date of last positivie culture/infection: 2013/MRSA MDRO Source:: abdomen Past Surgical History: Cholecystectomy, Heart Catheterization, Tubal Ligation Additional Past Surgical History / Comment(s): Lorenzo eye sx as child to correct lazy eye, Past Anesthesia/Blood Transfusion Reactions: Postoperative Nausea & Vomiting (PONV) Past Psychological History: Bipolar, Depression Smoking Status: Current every day smoker Past Alcohol Use History: Rare Past Drug Use History: None Reported, Marijuana - Past Family History Father Additional Family Medical History / Comment(s): Father had hypoglcemia, bipolar depression. He of an aortic aneurysm rupture in his 70's Mother Family Medical History: Cancer Additional Family Medical History / Comment(s): Mother of lung cancer that metastasized to her brain when she was in her 30's. Medications and Allergies Home Medications Medication Instructions Recorded Confirmed Type Atorvastatin [Lipitor] 40 mg PO DAILY #30 tab 01/28/18 01/06/19 Rx Aspirin EC [Ecotrin Low Dose] 81 mg PO DAILY 01/06/19 01/06/19 History Insulin Glargine [Lantus] 30 unit SQ HS 01/06/19 01/06/19 History Lisinopril 40 mg PO DAILY 01/06/19 01/06/19 History Metoclopramide HCl [Reglan] 10 mg PO TID 01/06/19 01/06/19 History Metoprolol Succinate (ER) [Toprol 25 mg PO DAILY 01/06/19 01/06/19 History XL] Pioglitazone HCl [Actos] 15 mg PO DAILY 01/06/19 01/06/19 History Potassium 99 mg PO DAILY 01/06/19 01/06/19 History metFORMIN HCL 1,000 mg PO BID 01/06/19 01/06/19 History Nicotine [Nicoderm Cq] 1 patch TRANSDERM DAILY #14 patch 01/08/19 Rx Omeprazole [PriLOSEC] 20 mg PO AC-BID #60 cap 01/08/19 Rx Allergies Allergy/AdvReac Type Severity Reaction Status Date / Time sucralose AdvReac Intermediate Nausea & Verified 04/16/19 16:42 [From Splenda (sucralose)] Vomiting & Diarrhea Physical Exam Vitals: Vital Signs Temp Pulse Pulse Resp BP Pulse Ox 06/04/19 10:00 84 14 128/69 95 06/04/19 09:33 88 06/04/19 09:23 87 06/04/19 09:00 81 12 116/57 97 06/04/19 08:00 98.1 F 92 80 18 123/66 96 06/04/19 07:00 84 17 128/64 96 06/04/19 06:00 84 14 126/66 97 06/04/19 05:00 80 15 119/79 98 06/04/19 04:00 97.6 F 110 H 80 21 105/77 98 06/04/19 03:51 97.6 F 20 06/04/19 03:41 97.8 F 87 18 122/76 98 06/04/19 01:50 95 18 06/04/19 01:41 94 18 06/04/19 00:30 97.7 F 76 20 114/82 100 Intake and Output 06/03/19 06/04/19 06/04/19 22:59 06:59 14:59 Intake Total 450 850 Output Total 250 300 Balance 200 550 Intake: IV 450 600 D5-0.45% NaCl with KCl 450 600 20Meq/l 1,000 ml @ 150 mls/hr IV .[id number] LEANDRA Rx# :[id number] Intake, IV Titration 250 Amount Potassium Phosphate 10 250 mmol In Sodium Chloride 0 .9% 250 ml @ 125 mls/hr IV Q2H LEANDRA Rx#:[id number] Output: Urine 250 300 Other: Voiding Method Bedside Commode Bedside Commode Weight 78.5 kg GENERAL EXAM: Alert, active, pleasant 49-year-old female patient, on 2 L nasal cannula, comfortable in no apparent distress. HEAD: Normocephalic. EYES: Normal reaction of pupils, equal size. NOSE: Clear with pink turbinates. THROAT: No erythema or exudates. NECK: No masses, no JVD. CHEST: No chest wall deformity. LUNGS: Equal air entry with no crackles, wheeze, rhonchi or dullness. CVS: S1 and S2 normal with no audible murmur, regular rhythm. ABDOMEN: No hepatosplenomegaly, normal bowel sounds, no guarding or rigidity. SPINE: No scoliosis or deformity SKIN: No rashes CENTRAL NERVOUS SYSTEM: No focal deficits, tone is normal in all 4 extremities. EXTREMITIES: There is no peripheral edema. No clubbing, no cyanosis. Peripheral pulses are intact. Results - Laboratory Findings CBC and BMP: 06/04/19 04:59 06/04/19 08:44 PT/INR, D-dimer PT 10.2 sec (9.0-12.0) 06/04/19 00:35 INR 1.0 (<1.2) 06/04/19 00:35 Abnormal lab findings: Abnormal Labs 06/04/19 06/04/19 06/04/19 00:35 00:35 00:35 Hct 51.0 H Lymphocytes # 0.9 L VBG pH VBG pCO2 VBG HCO3 Sodium 134 L Potassium Chloride Carbon Dioxide 8 L* Creatinine Glucose 276 H POC Glucose (mg/dL) Phosphorus Influenza Type A RNA Detected H 06/04/19 06/04/19 06/04/19 01:41 02:00 03:02 Hct Lymphocytes # VBG pH 7.18 L* VBG pCO2 25 L VBG HCO3 9 L* Sodium Potassium Chloride Carbon Dioxide Creatinine Glucose POC Glucose (mg/dL) 241 H 242 H Phosphorus Influenza Type A RNA 06/04/19 06/04/19 06/04/19 03:40 03:54 04:59 Hct Lymphocytes # VBG pH VBG pCO2 VBG HCO3 Sodium 133 L Potassium 3.4 L Chloride 112 H Carbon Dioxide 11 L Creatinine 0.46 L Glucose 191 H POC Glucose (mg/dL) 214 H 196 H Phosphorus 0.6 L* Influenza Type A RNA 06/04/19 06/04/19 06/04/19 04:59 05:02 05:57 Hct 46.3 H Lymphocytes # 0.7 L VBG pH VBG pCO2 VBG HCO3 Sodium Potassium Chloride Carbon Dioxide Creatinine Glucose POC Glucose (mg/dL) 188 H 181 H Phosphorus Influenza Type A RNA 06/04/19 06/04/19 06/04/19 07:01 08:44 09:02 Hct Lymphocytes # VBG pH VBG pCO2 VBG HCO3 Sodium 134 L Potassium Chloride 112 H Carbon Dioxide 13 L Creatinine 0.42 L Glucose 156 H POC Glucose (mg/dL) 183 H 182 H Phosphorus 0.9 L* Influenza Type A RNA 06/04/19 10:01 Hct Lymphocytes # VBG pH VBG pCO2 VBG HCO3 Sodium Potassium Chloride Carbon Dioxide Creatinine Glucose POC Glucose (mg/dL) 208 H Phosphorus Influenza Type A RNA - Diagnostic Findings Chest x-ray: image reviewed (No acute pulmonary process) Assessment and Plan Assessment: 1 Acute diabetic ketoacidosis secondary to ongoing issues with nausea and vomiting 2 Anion gap metabolic acidosis secondary to above 3 Acute influenza A infection 4 Diabetes mellitus, type II 5 Chronic and ongoing tobacco dependence 6 hypertension 7 Hyperlipidemia. 8 Bipolar disorder Plan: The patient was seen and evaluated by Dr. Hayward. Chest x-ray and labs reviewed. We'll continue with the DKA protocol. Titrate down the insulin drip as she recovers Replace electrolytes including phosphorus. Continue Tamiflu. . She is educated regarding importance of complete smoking cessation. NicoDerm patch will be offered. We'll continue to follow make further recommendations based on her clinical status. I, the cosigning physician, performed a history & physical examination of the patient. Lungs sounds are clear. Maintaining good O2 saturations in the 90s on 2 L/m per nasal cannula.. I discussed the assessment and plan of care with my nurse practitioner, Jojo Blake. I attest to the above consultation as dictated by her. Time with Patient: Greater than 30
[2019-06-04 10:43] VITALS: BMI 27.1
[2019-06-04 11:11] LABS: Glucose,Whole Blood 202 mg/dL (75-99)
[2019-06-04 12:14] LABS: Glucose,Whole Blood 174 mg/dL (75-99)
[2019-06-04 13:11] LABS: Glucose,Whole Blood 225 mg/dL (75-99)
--- NOTE | 2019-06-04 15:00 | P.HPIM ---
History of Present Illness H&P Date: 06/04/19 Chief Complaint: Nausea vomiting History of presenting complaint: This is a pleasant 49-year-old patient of Dr. Valencia. Chronic stable medical conditions include hypertension, hyperlipidemia, peripheral neuropathy, bipolar depression. Patient for last few months been having persistent nausea vomiting. Has been worked out of Dr. Curran to [facility] system. Patient did have an EGD that was unremarkable with a small hiatal hernia. She supposed to have a gastric emptying study. Patient continues to smoke. Patient is also been having 2 days increasing short of breath and wheezing wet cough no fever no chills Rundown. Presented to the ER. Found to be in diabetic ketoacidosis put on insulin drip. Also found to have influenza B+. Admitted to the ICU. Insulin drip IV fluids. Review of systems: GEN.: Tired EYES: None HEENT: None NECK: None RESPIRATORY: Wheezing coughing, not expectorating CARDIOVASCULAR: None GASTROINTESTINAL: Nausea GENITOURINARY: None MUSCULOSKELETAL: Chronic muscle and joint pains LYMPHATICS: None HEMATOLOGICAL: None PSYCHIATRY: None NEUROLOGICAL: None Past medical history to include: Diabetes, hypertension, hyperlipidemia, coronary artery disease, peripheral neuropathy, COPD, bipolar disorder Social history: Smokes a pack to pack and half a day for over 30 years, marijuana every other day, lives with her fianc Physical examination: VITAL SIGNS: 97.7, 76, 20, 11 4/82, 100% on room air GENERAL: BMI 27.1, laying in bed tired appearing. EYES: Pupils equal. Conjunctiva normal. HEENT: External appearance of nose and ears normal, oral cavity dry mucous membranes. NECK: JVD not raised; masses not palpable. HEART: First and second heart sounds are normal; no edema. LUNGS: Respiratory rate increased, decreased breath sounds prolonged expiration, wheezing. ABDOMEN: Soft, nontender, liver spleen not palpable, no masses palpable. PSYCH: Alert and oriented x3; mood and affect tired NEUROLOGICAL: Cranial nerves grossly intact; no facial asymmetry, power and sensation grossly intact. LYMPHATICS: No lymph nodes palpable in the axilla and neck INVESTIGATIONS, reviewed in the clinical context: White count 6.6 hemoglobin 16 platelets 232 potassium 4.1 bicarbonate creatinine 0.64 Glucose 276 influenza type A RNA detected serum acetone positive EKG tracing personally reviewed by me-normal sinus rhythm nonspecific findings the some T-wave changes Chest x-ray film personally reviewed by me-questionable scanty infiltrate Assessment: -Acute influenza A pneumonitis, POA -Diabetic ketoacidosis, POA -Diabetes mellitus type 2, chronically on insulin, uncontrolled with hyperglycemia -Essential hypertension -Hyperlipidemia -Diabetic peripheral neuropathy -Bipolar disorder -Acute COPD exacerbation in a current smoker, POA -Patient is having nausea vomiting. Last 3 months. Being worked up up at [facility]. Possible gastroparesis Plan: Patient insulin drip. Nebulized bronchodilator steroids added. Electrolytes are being followed. We'll also add Reglan. Patient is in the ICU. Hopefully can start the patient on Levemir tonight. Lovenox for DVT prophylaxis. Smoke cessation counseling: This was done with the patient. Nicotine patch is being given. More than 3 minutes was spent for this Past Medical History Past Medical History: Chest Pain / Angina, Diabetes Mellitus, Hyperlipidemia, Hypertension, Myocardial Infarction (NV) Additional Past Medical History / Comment(s): Rare migraines, IDDM type II, neuropathy bilateral feet.past uti,bipolar depression Last Myocardial Infarction Date:: 2014 History of Any Multi-Drug Resistant Organisms: MRSA Date of last positivie culture/infection: 2013/MRSA MDRO Source:: abdomen Past Surgical History: Cholecystectomy, Heart Catheterization, Tubal Ligation Additional Past Surgical History / Comment(s): Lorenzo eye sx as child to correct lazy eye, Past Anesthesia/Blood Transfusion Reactions: Postoperative Nausea & Vomiting (PONV) Past Psychological History: Bipolar, Depression Smoking Status: Current every day smoker Past Alcohol Use History: Rare Past Drug Use History: None Reported, Marijuana - Past Family History Father Additional Family Medical History / Comment(s): Father had hypoglcemia, bipolar depression. He of an aortic aneurysm rupture in his 70's Mother Family Medical History: Cancer Additional Family Medical History / Comment(s): Mother of lung cancer that metastasized to her brain when she was in her 30's. Medications and Allergies Home Medications Medication Instructions Recorded Confirmed Type Aspirin [Adult Low Dose Aspirin EC] 81 mg PO DAILY 06/04/19 06/04/19 History Atorvastatin [Lipitor] 40 mg PO DAILY 06/04/19 06/04/19 History Ertugliflozin Pidolate [Steglatro] 15 mg PO DAILY 06/04/19 06/04/19 History Insulin Glargine,Hum.rec.anlog 30 unit SQ HS 06/04/19 06/04/19 History [Basaglar Kwikpen U-100] Lisinopril [Zestril] 20 mg PO BID 06/04/19 06/04/19 History Metoprolol Succinate [Toprol XL] 25 mg PO DAILY 06/04/19 06/04/19 History Omeprazole [PriLOSEC] 20 mg PO AC-BRKFST 06/04/19 06/04/19 History Pioglitazone [Actos] 30 mg PO DAILY 06/04/19 06/04/19 History Polyethylene Glycol 3350 [Miralax] 17 gm PO DAILY PRN 06/04/19 06/04/19 History Simethicone [Gas-X] 125 mg PO QID PRN 06/04/19 06/04/19 History amLODIPine [Norvasc] 5 mg PO DAILY 06/04/19 06/04/19 History Allergies Allergy/AdvReac Type Severity Reaction Status Date / Time sucralose AdvReac Intermediate Nausea & Verified 06/04/19 11:13 [From Splenda (sucralose)] Vomiting & Diarrhea Physical Exam Vitals: Vital Signs Temp Pulse Pulse Resp BP Pulse Ox 06/04/19 09:23 87 06/04/19 09:00 81 12 116/57 97 06/04/19 08:00 98.1 F 92 80 18 123/66 96 06/04/19 07:00 84 17 128/64 96 06/04/19 06:00 84 14 126/66 97 06/04/19 05:00 80 15 119/79 98 06/04/19 04:00 97.6 F 110 H 80 21 105/77 98 06/04/19 03:51 97.6 F 20 06/04/19 03:41 97.8 F 87 18 122/76 98 06/04/19 01:50 95 18 06/04/19 01:41 94 18 06/04/19 00:30 97.7 F 76 20 114/82 100 Intake and Output 06/03/19 06/04/19 06/04/19 22:59 06:59 14:59 Intake Total 450 700 Output Total 250 300 Balance 200 400 Intake: IV 450 450 D5-0.45% NaCl with KCl 450 450 20Meq/l 1,000 ml @ 150 mls/hr IV .[id number] [facility]AN[facility]A Rx# :[id number] Intake, IV Titration 250 Amount Potassium Phosphate 10 250 mmol In Sodium Chloride 0 .9% 250 ml @ 125 mls/hr IV Q2H LEAN[facility]A Rx#:[id number] Output: Urine 250 300 Other: Voiding Method Bedside Commode Bedside Commode Weight 78.5 kg Results CBC & Chem 7: 06/04/19 04:59 06/04/19 08:44 Labs: Abnormal Lab Results - Last 24 Hours (Table) 06/04/19 06/04/19 06/04/19 Range/Units 00:35 00:35 00:35 Hct 51.0 H (34.0-46.0) % Lymphocytes # 0.9 L (1.0-4.8) k/uL VBG pH (7.31-7.41) VBG pCO2 (37-51) mmHg VBG HCO3 (24-28) mmol/L Sodium 134 L (137-145) mmol/L Potassium (3.5-5.1) mmol/L Chloride (98-107) mmol/L Carbon Dioxide 8 L* (22-30) mmol/L Creatinine (0.52-1.04) mg/dL Glucose 276 H (74-99) mg/dL POC Glucose (mg/dL) (75-99) mg/dL Phosphorus (2.5-4.5) mg/dL Influenza Type A RNA Detected H (Not Detectd) 06/04/19 06/04/19 06/04/19 Range/Units 01:41 02:00 03:02 Hct (34.0-46.0) % Lymphocytes # (1.0-4.8) k/uL VBG pH 7.18 L* (7.31-7.41) VBG pCO2 25 L (37-51) mmHg VBG HCO3 9 L* (24-28) mmol/L Sodium (137-145) mmol/L Potassium (3.5-5.1) mmol/L Chloride (98-107) mmol/L Carbon Dioxide (22-30) mmol/L Creatinine (0.52-1.04) mg/dL Glucose (74-99) mg/dL POC Glucose (mg/dL) 241 H 242 H (75-99) mg/dL Phosphorus (2.5-4.5) mg/dL Influenza Type A RNA (Not Detectd) 06/04/19 06/04/19 06/04/19 Range/Units 03:40 03:54 04:59 Hct (34.0-46.0) % Lymphocytes # (1.0-4.8) k/uL VBG pH (7.31-7.41) VBG pCO2 (37-51) mmHg VBG HCO3 (24-28) mmol/L Sodium 133 L (137-145) mmol/L Potassium 3.4 L (3.5-5.1) mmol/L Chloride 112 H (98-107) mmol/L Carbon Dioxide 11 L (22-30) mmol/L Creatinine 0.46 L (0.52-1.04) mg/dL Glucose 191 H (74-99) mg/dL POC Glucose (mg/dL) 214 H 196 H (75-99) mg/dL Phosphorus 0.6 L* (2.5-4.5) mg/dL Influenza Type A RNA (Not Detectd) 06/04/19 06/04/19 06/04/19 Range/Units 04:59 05:02 05:57 Hct 46.3 H (34.0-46.0) % Lymphocytes # 0.7 L (1.0-4.8) k/uL VBG pH (7.31-7.41) VBG pCO2 (37-51) mmHg VBG HCO3 (24-28) mmol/L Sodium (137-145) mmol/L Potassium (3.5-5.1) mmol/L Chloride (98-107) mmol/L Carbon Dioxide (22-30) mmol/L Creatinine (0.52-1.04) mg/dL Glucose (74-99) mg/dL POC Glucose (mg/dL) 188 H 181 H (75-99) mg/dL Phosphorus (2.5-4.5) mg/dL Influenza Type A RNA (Not Detectd) 06/04/19 06/04/19 06/04/19 Range/Units 07:01 08:44 09:02 Hct (34.0-46.0) % Lymphocytes # (1.0-4.8) k/uL VBG pH (7.31-7.41) VBG pCO2 (37-51) mmHg VBG HCO3 (24-28) mmol/L Sodium 134 L (137-145) mmol/L Potassium (3.5-5.1) mmol/L Chloride 112 H (98-107) mmol/L Carbon Dioxide 13 L (22-30) mmol/L Creatinine 0.42 L (0.52-1.04) mg/dL Glucose 156 H (74-99) mg/dL POC Glucose (mg/dL) 183 H 182 H (75-99) mg/dL Phosphorus 0.9 L* (2.5-4.5) mg/dL Influenza Type A RNA (Not Detectd) Thrombosis Risk Factor Assmnt - Choose All That Apply Each Factor Represents 1 point: Acute NV, Age 41-60 years Thrombosis Risk Factor Assessment Total Risk Factor Score: 2 Thrombosis Risk Factor Assessment Level: Low Risk
[2019-06-04 15:11] LABS: Glucose,Whole Blood 189 mg/dL (75-99)
[2019-06-04] MEDS: NICOTINE 21MG/24HR PATCH TRANSDERM SCH (15:21)
[2019-06-04] MEDS: ENOXAPARIN 40 MG/0.4 ML SYRINGE SQ SCH (15:27)
[2019-06-04] MEDS: METOPROLOL SUCCINATE (ER) 25 MG TAB.ER.24H PO SCH (15:27)
[2019-06-04] MEDS: ATORVASTATIN 40 MG TAB PO SCH (15:27)
[2019-06-04 16:29] LABS: African American GFR (CKD) >90 (>60 ml/min/1.73 sqM); Anion Gap 6 mmol/L; Blood Urea Nitrogen 10 mg/dL (7-17); Calcium 8.7 mg/dL (8.4-10.2); Carbon Dioxide 17 mmol/L (22-30); Chloride 110 mmol/L (98-107); Glucose 176 mg/dL (74-99); Non-African American GFR(CKD) >90 (>60 ml/min/1.73 sqM); Sodium 133 mmol/L (137-145)
[2019-06-04] MEDS: METOCLOPRAMIDE 10 MG TAB PO SCH (17:13)
[2019-06-04 18:51] LABS: Glucose,Whole Blood 203 mg/dL (75-99)
[2019-06-04] MEDS: ACETAMINOPHEN TAB 325 MG TAB PO PRN (20:03)
[2019-06-04] MEDS: BUDESONIDE 1 MG/2 ML NEBU INHALATION SCH (20:31)
[2019-06-04 21:00] LABS: Glucose,Whole Blood 126 mg/dL (75-99)
[2019-06-04] MEDS: INSULIN DETEMIR (LEVEMIR) 100 UNIT/ML SYR SQ SCH (21:18)
[2019-06-05] MEDS: IPRATROPIUM-ALBUTEROL 3 ML NEB INHALATION SCH ×5 (03:15→19:45)
[2019-06-05 04:45] LABS: Basophils % (A) 0 %; Eosinophils % (A) 0 %; HCT 39.9 % (34.0-46.0); HGB 13.3 gm/dL (11.4-16.0); Lymphocytes # (A) 1.3 k/uL (1.0-4.8); Lymphocytes % (A) 21 %; MCHC 33.5 g/dL (31.0-37.0); MCV 92.5 fL (80.0-100.0); Mean Platelet Volume 7.5; Monocytes # (A) 0.3 k/uL (0-1.0); Monocytes % (A) 5 %; Neutrophils # (A) 4.4 k/uL (1.3-7.7); Neutrophils % (A) 71 %; Platelet Count 201 k/uL (150-450); RBC 4.31 m/uL (3.80-5.40); RDW 14.5 % (11.5-15.5); WBC 6.3 k/uL (3.8-10.6)
[2019-06-05 04:56] LABS: African American GFR (CKD) >90 (>60 ml/min/1.73 sqM); Anion Gap 4 mmol/L; Blood Urea Nitrogen 9 mg/dL (7-17); Calcium 8.8 mg/dL (8.4-10.2); Carbon Dioxide 18 mmol/L (22-30); Chloride 112 mmol/L (98-107); Glucose 141 mg/dL (74-99); Non-African American GFR(CKD) >90 (>60 ml/min/1.73 sqM); Phosphorus 1.1 mg/dL (2.5-4.5); Potassium 3.5 mmol/L (3.5-5.1); Sodium 134 mmol/L (137-145)
[2019-06-05] MEDS: POTASSIUM CHLORIDE ER 20 MEQ TAB.ER PO SCH ×2 (05:31→06:44)
[2019-06-05] MEDS: POTASSIUM PHOSPHATE 10 MMOL in SODIUM CHLORIDE 0.9% 250 ML IV SCH ×2 (05:31→08:22)
[2019-06-05] MEDS: METOCLOPRAMIDE 10 MG TAB PO SCH ×3 (06:44→18:33)
[2019-06-05 06:49] LABS: Glucose,Whole Blood 140 mg/dL (75-99)
[2019-06-05] MEDS: NICOTINE 21MG/24HR PATCH TRANSDERM SCH (08:16)
[2019-06-05] MEDS: ENOXAPARIN 40 MG/0.4 ML SYRINGE SQ SCH (08:22)
[2019-06-05] MEDS: OSELTAMIVIR 75 MG CAP PO SCH ×2 (08:22→21:26)
[2019-06-05] MEDS: ATORVASTATIN 40 MG TAB PO SCH (08:23)
[2019-06-05] MEDS: METOPROLOL SUCCINATE (ER) 25 MG TAB.ER.24H PO SCH (08:23)
[2019-06-05] MEDS: BUDESONIDE 1 MG/2 ML NEBU INHALATION SCH ×2 (09:03→19:44)
--- NOTE | 2019-06-05 10:49 | P.PN ---
Subjective Progress Note Date: 06/05/19 This is a very pleasant 49-year-old female patient who follows with Dr. Valencia as her primary care provider. She has a history of diabetes mellitus type 2, hyperlipidemia, hypertension, bipolar disorder, previous MRSA infection of the abdomen in 2013, depression, chronic and ongoing tobacco dependence of 35 years. She had been diagnosed with a small hiatal hernia and had previously been seen by Dr. Zuniga and was told she has a small hiatal hernia. She states since she has been having ongoing issues with frequent vomiting. She has sought the advice of a second GI physician and was attempting on gastric emptying stomach at home Thursday that she could not complete that she began vomiting prior to finishing this study. She presented here to the emergency room earlier this morning with 2 days of shortness of breath, cough or congestion ongoing nausea and vomiting. Chest x-ray showed no acute pulmonary process. She did test positive for influenza A. She was found to be in DKA. She is currently seen in consultation in the intensive care unit. She is awake and alert in no acute distress. White count 6.4. Hemoglobin 15.1. Sodium 134. Potassium 3.7. Chloride 112. Carbon dioxide has increased from 8-13. Creatinine 0.42. Anion gap has improved from 19-9. Acetone positive. Phosphorus is being replaced. She is tolerating small amount of food. Current glucose 208. She is currently on a insulin drip at 8.1 units per hour. Tamiflu. D5 and half-normal saline with 20 mEq of K Ciel at 150 MLS per hour. The patient is seen today 06/05/2019 in follow-up in the intensive care unit. She is awake and alert in no acute distress. Resting quite comfortably in bed. She is off the insulin drip and transition to her Levemir. She did tolerate a small amount of breakfast this morning. No nausea or vomiting. White count 6.3. Hemoglobin 13.3. Sodium 134. Potassium 3.5. Bicarb 18. Creatinine 0.36. Objective - Vital Signs Vital signs: Vital Signs Temp 98.9 F 06/05/19 08:00 Pulse 90 06/05/19 10:00 Resp 20 06/05/19 10:00 BP 131/76 06/05/19 10:00 Pulse Ox 94 L 06/05/19 10:00 Intake & Output 06/04/19 06/05/19 06/05/19 18:59 06:59 18:59 Intake Total 2614.603 657.066 575 Output Total 1200 575 0 Balance 1414.603 82.066 575 Weight 78.5 kg 81.8 kg Intake: IV 1800 450 D5-0.45% NaCl with KCl 1800 450 20Meq/l 1,000 ml @ 150 mls/hr IV .Q6H40M [facility] Rx# :[id number] Intake, IV Titration 574.603 207.066 375 Amount Insulin Regular 100 unit 74.603 82.066 In Sodium Chloride 0.9% 100 ml @ 0.1 UNITS/KG/HR 8.109 mls/hr IV .[id number] [facility] Rx#:[id number] Potassium Phosphate 10 500 mmol In Sodium Chloride 0 .9% 250 ml @ 125 mls/hr IV Q2H [facility] Rx#:[id number] Potassium Phosphate 10 125 375 mmol In Sodium Chloride 0 .9% 250 ml @ 125 mls/hr IV Q2H [facility]AN[facility]A Rx#:[id number] Oral 240 200 Output: Urine 1200 575 0 Other: Voiding Method Bedside Commode Bedside Commode Bedside Commode # Voids 1 - Exam GENERAL EXAM: Alert, pleasant 49-year-old female patient, on room air, comfortable in no apparent distress. HEAD: Normocephalic. EYES: Normal reaction of pupils, equal size. NOSE: Clear with pink turbinates. THROAT: No erythema or exudates. NECK: No masses, no JVD. CHEST: No chest wall deformity. LUNGS: Equal air entry with no crackles, wheeze, rhonchi or dullness. CVS: S1 and S2 normal with no audible murmur, regular rhythm. ABDOMEN: No hepatosplenomegaly, normal bowel sounds, no guarding or rigidity. SPINE: No scoliosis or deformity SKIN: No rashes CENTRAL NERVOUS SYSTEM: No focal deficits, tone is normal in all 4 extremities. EXTREMITIES: There is no peripheral edema. No clubbing, no cyanosis. Peripheral pulses are intact. - Labs CBC & Chem 7: 06/05/19 04:32 06/05/19 04:32 Labs: Abnormal Lab Results - Last 24 Hours (Table) 06/04/19 06/04/19 06/04/19 Range/Units 11:09 12:12 13:09 Sodium (137-145) mmol/L Chloride (98-107) mmol/L Carbon Dioxide (22-30) mmol/L Creatinine (0.52-1.04) mg/dL Glucose (74-99) mg/dL POC Glucose (mg/dL) 202 H 174 H 225 H (75-99) mg/dL Phosphorus (2.5-4.5) mg/dL 06/04/19 06/04/19 06/04/19 Range/Units 15:07 15:51 18:50 Sodium 133 L (137-145) mmol/L Chloride 110 H (98-107) mmol/L Carbon Dioxide 17 L (22-30) mmol/L Creatinine 0.47 L (0.52-1.04) mg/dL Glucose 176 H (74-99) mg/dL POC Glucose (mg/dL) 189 H 203 H (75-99) mg/dL Phosphorus (2.5-4.5) mg/dL 06/04/19 06/05/19 06/05/19 Range/Units 20:59 04:32 06:47 Sodium 134 L (137-145) mmol/L Chloride 112 H (98-107) mmol/L Carbon Dioxide 18 L (22-30) mmol/L Creatinine 0.36 L (0.52-1.04) mg/dL Glucose 141 H (74-99) mg/dL POC Glucose (mg/dL) 126 H 140 H (75-99) mg/dL Phosphorus 1.1 L (2.5-4.5) mg/dL Assessment and Plan Assessment: 1 Acute diabetic ketoacidosis secondary to ongoing issues with nausea and vomiting, recovered and transitioned to Levemir 2 Anion gap metabolic acidosis secondary to above, recovered 3 Acute influenza A infection, on Tamiflu 4 Diabetes mellitus, type II 5 Chronic and ongoing tobacco dependence 6 Hypertension 7 Hyperlipidemia. 8 Bipolar disorder Plan: The patient was seen and evaluated by Dr. Hayward. Recovered from DKA and transitioned to Levemir Continue Tamiflu. . She is educated regarding importance of complete smoking cessation. NicoDerm patch in place Transfer out of the intensive care unit to the medical floor. We'll continue to follow and make further recommendations based on her clinical status. I, the cosigning physician, performed a history & physical examination of the patient. Lungs sounds are clear. Maintaining good O2 saturations in the 90s on room air.. I discussed the assessment and plan of care with my nurse practitioner, Jojo Blake. I attest to the above note as dictated by her.
[2019-06-05 12:01] LABS: Glucose,Whole Blood 188 mg/dL (75-99)
[2019-06-05] MEDS: INSULIN ASPART (NovoLOG) 100 UNIT/ML VIAL SQ SCH ×3 (12:53→21:27)
--- NOTE | 2019-06-05 15:56 | P.PN ---
Progress Note - Text Progress Note Date: 06/05/19 Chief Complaint: Nausea vomiting History of presenting complaint: This is a pleasant 49-year-old patient of Dr. Valencia. Chronic stable medical conditions include hypertension, hyperlipidemia, peripheral neuropathy, bipolar depression. Patient for last few months been having persistent nausea vomiting. Has been worked out of Dr. Curran to [facility]. Patient did have an EGD that was unremarkable with a small hiatal hernia. She supposed to have a gastric emptying study. Patient continues to smoke. Patient is also been having 2 days increasing short of breath and wheezing wet cough no fever no chills Rundown. Presented to the ER. Found to be in diabetic ketoacidosis put on insulin drip. Also found to have influenza B+. Admitted to the ICU. Insulin drip IV fluids. Admitted with-acute influenza A pneumonitis, diabetic ketoacidosis. Today-switched over to Levemir last night. Looking better this morning. Less nausea vomiting. Has been up in a chair. Review of systems: Was done for constitutional, cardiovascular, GI, pulmonary. relevant finding as above Active Medications Acetaminophen (Tylenol Tab) 650 mg PO Q6HR PRN PRN Reason: Fever and/ or Pain Last Admin: 06/04/19 20:03 Dose: 650 mg Documented by: Albuterol/Ipratropium (Duoneb 0.5 Mg-3 Mg/3 Ml Soln) 3 ml INHALATION RT-Q4H [facility] Last Admin: 06/05/19 12:01 Dose: 3 ml Documented by: Atorvastatin Calcium (Lipitor) 40 mg PO DAILY [facility] Last Admin: 06/05/19 08:23 Dose: 40 mg Documented by: Budesonide (Pulmicort) 1 mg INHALATION RT-BID [facility] Last Admin: 06/05/19 09:03 Dose: 1 mg Documented by: Enoxaparin Sodium (Lovenox) 40 mg SQ DAILY [facility] Last Admin: 06/05/19 08:22 Dose: 40 mg Documented by: Insulin Aspart (Novolog) 0 unit SQ ACHS [facility]; Protocol Last Admin: 06/05/19 12:53 Dose: 2 unit Documented by: Insulin Detemir (Levemir) 30 unit SQ HS [facility] Last Admin: 06/04/19 21:18 Dose: 30 unit Documented by: Metoclopramide HCl (Reglan) 10 mg PO AC-TID [facility] Last Admin: 06/05/19 12:03 Dose: Not Given Documented by: Metoprolol Succinate (Toprol Xl) 25 mg PO DAILY [facility] Last Admin: 06/05/19 08:23 Dose: 25 mg Documented by: Miscellaneous Information (Potassium Per Protocol) 1 each MISCELLANE DAILY PRN; Protocol PRN Reason: Per Protocol Miscellaneous Information (Phosphorus Per Protocol) 1 each MISCELLANE DAILY PRN; Protocol PRN Reason: Per Protocol Naloxone HCl (Narcan) 0.2 mg IV Q2M PRN PRN Reason: Opioid Reversal Naloxone HCl (Narcan) 0.2 mg IV Q2M PRN PRN Reason: Opioid Reversal Nicotine (Habitrol 21mg/24hr Patch) 1 patch TRANSDERM DAILY [facility] Last Admin: 06/05/19 08:16 Dose: Not Given Documented by: Oseltamivir Phosphate (Tamiflu) 75 mg PO Q12HR [facility] Stop: 06/08/19 21:01 Last Admin: 06/05/19 08:22 Dose: 75 mg Documented by: Physical examination: VITAL SIGNS: Afebrile, 81, 20, 122/82, 98% GENERAL: Laying in bed, looking better. EYES: Pupils equal. Conjunctiva normal. HEENT: External appearance of nose and ears normal, oral cavity dry mucous membranes. NECK: JVD not raised; masses not palpable. HEART: First and second heart sounds are normal; no edema. LUNGS: Respiratory rate increased, decreased breath sounds and decreased wheezing. ABDOMEN: Soft, nontender, liver spleen not palpable, no masses palpable. PSYCH: Alert and oriented x3; mood and affect tired INVESTIGATIONS, reviewed in the clinical context: White count 6.3 hemoglobin 13.3 potassium 3.5 creatinine 0.36 Previous testing White count 6.6 hemoglobin 16 platelets 232 potassium 4.1 bicarbonate creatinine 0.64 Glucose 276 influenza type A RNA detected serum acetone positive EKG tracing personally reviewed by me-normal sinus rhythm nonspecific findings the some T-wave changes Chest x-ray film personally reviewed by me-questionable scanty infiltrate Assessment: -Acute influenza A pneumonitis, POA -Diabetic ketoacidosis, POA, corrected -Diabetes mellitus type 2, chronically on insulin, uncontrolled with hyperglycemia -Essential hypertension -Hyperlipidemia -Diabetic peripheral neuropathy -Bipolar disorder -Acute COPD exacerbation in a current smoker, POA -Patient is having nausea vomiting. Last 3 months. Being worked up up at [facility]. Possible gastroparesis Plan: Discussed with the patient. Encouraged to walk in the hallway. We'll decrease her dose of Reglan tomorrow.
[2019-06-05 16:54] LABS: Glucose,Whole Blood 151 mg/dL (75-99)
[2019-06-05 21:20] LABS: Glucose,Whole Blood 156 mg/dL (75-99)
[2019-06-05] MEDS: ACETAMINOPHEN TAB 325 MG TAB PO PRN (21:26)
[2019-06-05] MEDS: INSULIN DETEMIR (LEVEMIR) 100 UNIT/ML SYR SQ SCH (21:27)
[2019-06-06] MEDS: IPRATROPIUM-ALBUTEROL 3 ML NEB INHALATION SCH ×4 (00:17→11:29)
[2019-06-06 04:50] LABS: Basophils % (A) 0 %; Eosinophils # (A) 0.1 k/uL (0-0.7); Eosinophils % (A) 1 %; HCT 40.4 % (34.0-46.0); HGB 13.5 gm/dL (11.4-16.0); Lymphocytes # (A) 1.7 k/uL (1.0-4.8); Lymphocytes % (A) 25 %; MCHC 33.5 g/dL (31.0-37.0); MCV 92.6 fL (80.0-100.0); Mean Platelet Volume 7.6; Monocytes # (A) 0.4 k/uL (0-1.0); Monocytes % (A) 6 %; Neutrophils # (A) 4.4 k/uL (1.3-7.7); Neutrophils % (A) 65 %; Platelet Count 186 k/uL (150-450); RBC 4.37 m/uL (3.80-5.40); RDW 14.4 % (11.5-15.5); WBC 6.7 k/uL (3.8-10.6)
[2019-06-06 05:05] LABS: African American GFR (CKD) >90 (>60 ml/min/1.73 sqM); Anion Gap 5 mmol/L; Blood Urea Nitrogen 12 mg/dL (7-17); Carbon Dioxide 22 mmol/L (22-30); Chloride 107 mmol/L (98-107); Glucose 93 mg/dL (74-99); Non-African American GFR(CKD) >90 (>60 ml/min/1.73 sqM); Phosphorus 2.3 mg/dL (2.5-4.5); Potassium 3.8 mmol/L (3.5-5.1); Sodium 134 mmol/L (137-145)
[2019-06-06] MEDS ORDERED: POTASSIUM PHOSPHATE 10 MMOL in SODIUM CHLORIDE 0.9% 250 ML IV ONE (05:30)
[2019-06-06 06:50] LABS: Glucose,Whole Blood 79 mg/dL (75-99)
[2019-06-06] MEDS: INSULIN ASPART (NovoLOG) 100 UNIT/ML VIAL SQ SCH ×2 (07:01→12:01)
[2019-06-06] MEDS: BUDESONIDE 1 MG/2 ML NEBU INHALATION SCH (07:50)
[2019-06-06 08:25] VITALS: BP 108/76; RESP 18; TEMP 97.3
[2019-06-06] MEDS: METOPROLOL SUCCINATE (ER) 25 MG TAB.ER.24H PO SCH (09:07)
[2019-06-06] MEDS: NICOTINE 21MG/24HR PATCH TRANSDERM SCH ×2 (09:07→09:13)
[2019-06-06] MEDS: ENOXAPARIN 40 MG/0.4 ML SYRINGE SQ SCH (09:07)
[2019-06-06] MEDS: ATORVASTATIN 40 MG TAB PO SCH (09:07)
[2019-06-06] MEDS: OSELTAMIVIR 75 MG CAP PO SCH (09:08)
[2019-06-06] MEDS: METOCLOPRAMIDE 5 MG TAB PO SCH ×2 (09:08→12:01)
[2019-06-06 11:38] VITALS: PULSE 78
[2019-06-06 11:58] LABS: Glucose,Whole Blood 184 mg/dL (75-99)
--- NOTE | 2019-06-06 12:50 | P.PN ---
Subjective Progress Note Date: 06/06/19 Principal diagnosis: Acute diabetic ketoacidosis This is a very pleasant 49-year-old female patient who follows with Dr. Valencia as her primary care provider. She has a history of diabetes mellitus type 2, hyperlipidemia, hypertension, bipolar disorder, previous MRSA infection of the abdomen in 2013, depression, chronic and ongoing tobacco dependence of 35 years. She had been diagnosed with a small hiatal hernia and had previously been seen by Dr. Zuniga and was told she has a small hiatal hernia. She states since she has been having ongoing issues with frequent vomiting. She has sought the advice of a second GI physician and was attempting on gastric emptying stomach at home Thursday that she could not complete that she began vomiting prior to finishing this study. She presented here to the emergency room earlier this morning with 2 days of shortness of breath, cough or congestion ongoing nausea and vomiting. Chest x-ray showed no acute pulmonary process. She did test positive for influenza A. She was found to be in DKA. She is currently seen in consultation in the intensive care unit. She is awake and alert in no acute distress. White count 6.4. Hemoglobin 15.1. Sodium 134. Potassium 3.7. Chloride 112. Carbon dioxide has increased from 8-13. Creatinine 0.42. Anion gap has improved from 19-9. Acetone positive. Phosphorus is being replaced. She is tolerating small amount of food. Current glucose 208. She is currently on a insulin drip at 8.1 units per hour. Tamiflu. D5 and half-normal saline with 20 mEq of K Ciel at 150 MLS per hour. The patient is seen today 06/05/2019 in follow-up in the intensive care unit. She is awake and alert in no acute distress. Resting quite comfortably in bed. She is off the insulin drip and transition to her Levemir. She did tolerate a small amount of breakfast this morning. No nausea or vomiting. White count 6.3. Hemoglobin 13.3. Sodium 134. Potassium 3.5. Bicarb 18. Creatinine 0.36. Reevaluated today on 06/06/19, patient remains in the ICU, doing extremely well. Alert and oriented, no gross focal deficits. Patient is off insulin drip, and she is now on insulin sliding scale and Levemir insulin. Patient is now on her ADA diet. And I believe the patient could be considered for discharge planning in the next 24 hours. She continues to have some symptoms of cough and wheezing, I believe the patient has underlying COPD. And she has recovered quite nicely from her influenza A infection, on Tamiflu. Objective - Vital Signs Vital signs: Vital Signs Temp 97.3 F L 06/06/19 08:00 Pulse 78 06/06/19 11:37 Resp 18 06/06/19 08:00 BP 108/76 06/06/19 08:00 Pulse Ox 97 06/05/19 23:00 Intake & Output 06/05/19 06/06/19 06/06/19 18:59 06:59 18:59 Intake Total 935 250 Output Total 0 0 Balance 935 250 0 Intake: Intake, IV Titration 375 250 Amount Potassium Phosphate 10 250 mmol In Sodium Chloride 0 .9% 250 ml @ 125 mls/hr IV ONCE ONE Rx#:[id number] Potassium Phosphate 10 375 mmol In Sodium Chloride 0 .9% 250 ml @ 125 mls/hr IV Q2H LEANDRA Rx#:[id number] Oral 560 Output: Urine 0 0 Other: Voiding Method Bedside Commode Bedside Commode # Voids 1 1 - Exam Physical Exam: Revealed a 49-year-old female in no distress. Head: Atraumatic, normocephalic. HEENT:[Neck is supple.] [No neck masses.] [No thyromegaly.] [No JVD.] Chest: [Symmetrical chest expansion, rhonchi bilaterally more so on forced expiratory maneuver. Cardiac Exam: [Normal S1 and S2, no S3 gallop, no murmur.] Abdomen: [Soft, nontender, no megaly, no rebound, no guarding, normal bowel sounds.] Extremities: [No clubbing, no edema, no cyanosis.] Neurological Exam: [No focal neurologic deficit.] Alert and oriented 3. Psychiatric: Normal mood, affect and normal mental status examination. Skin: No rashes. Musculoskeletal: No deformities normal range of motion. - Labs CBC & Chem 7: 06/06/19 04:36 06/06/19 04:36 Labs: Abnormal Lab Results - Last 24 Hours (Table) 06/05/19 06/05/19 06/06/19 Range/Units 16:52 21:19 04:36 Sodium 134 L (137-145) mmol/L Creatinine 0.37 L (0.52-1.04) mg/dL POC Glucose (mg/dL) 151 H 156 H (75-99) mg/dL Phosphorus 2.3 L (2.5-4.5) mg/dL 06/06/19 Range/Units 11:56 Sodium (137-145) mmol/L Creatinine (0.52-1.04) mg/dL POC Glucose (mg/dL) 184 H (75-99) mg/dL Phosphorus (2.5-4.5) mg/dL Assessment and Plan Assessment: 1 Acute diabetic ketoacidosis secondary to ongoing issues with nausea and vomiting, resolved. 2 Anion gap metabolic acidosis secondary to above, resolved. 3 Acute influenza A infection, on Tamiflu 4 Diabetes mellitus, type II 5 Chronic and ongoing tobacco dependence 6 Hypertension 7 Hyperlipidemia. 8 Bipolar disorder 9 suspect some component of underlying COPD. Recommendation: Continue present treatment plan, for her diabetes. Continue Tamiflu Continue bronchodilators. Consider discharge planning in the next 24 hours. Patient could be transferred out of the ICU today. Counseled regarding smoking cessation. Time with Patient: Less than 30
--- NOTE | 2019-06-06 17:48 | P.DS ---
Providers Date of admission: 06/04/19 01:39 Expected date of discharge: 06/06/19 Attending physician: Dileep Riddle Consults: 06/04/19 02:51 Consult Physician Stat Consulting Provider: Krishna Hayward Consult Reason/Comments: Influenza A positive, COPD exacerbation, diabetic ketoacidosis Do you want consulting provider notified?: Yes Primary care physician: Senthil Valencia [facility] Course: Chief Complaint: Nausea vomiting History of presenting complaint: This is a pleasant 49-year-old patient of Dr. Valencia. Chronic stable medical conditions include hypertension, hyperlipidemia, peripheral neuropathy, bipolar depression. Patient for last few months been having persistent nausea vomiting. [facility] Patient did have an EGD that was unremarkable with a small hiatal hernia. She supposed to have a gastric emptying study. Patient continues to smoke. Patient is also been having 2 days increasing short of breath and wheezing wet cough no fever no chills Rundown. Presented to the ER. Found to be in diabetic ketoacidosis put on insulin drip. Also found to have influenza B+. Admitted to the ICU. Insulin drip IV fluids. Admitted with-acute influenza A pneumonitis, diabetic ketoacidosis., Acute COPD exacerbation. Patient responded well to insulin drip. Tamiflu. Bronchodilators and inhaled steroids. Nausea vomiting settled down. Did tolerate her diet. Patient's Actos was discontinued. Blood pressure was controlled currently. Has lisinopril and Norvasc also held for right now. Today-doing much better. Up in the hallway. Tolerating diet. Feeling much better. Consultation: Dr. Hayward colleagues from pulmonary Physical examination: VITAL SIGNS: Recent 0.3, 91, 18, 108/76, 97% room air GENERAL: Sitting up the edge of the bed, comfortable. EYES: Pupils equal. Conjunctiva normal. HEENT: External appearance of nose and ears normal, oral cavity dry mucous membranes. NECK: JVD not raised; masses not palpable. HEART: First and second heart sounds are normal; no edema. LUNGS: Respiratory rate increased, decreased breath sounds . ABDOMEN: Soft, nontender, liver spleen not palpable, no masses palpable. PSYCH: Alert and oriented x3; mood and affect normal INVESTIGATIONS, reviewed in the clinical context: White count 6.7 hemoglobin 13.5 potassium 3.8 creatinine 0.37 Accu-Cheks 69, 184 Previous testing White count 6.6 hemoglobin 16 platelets 232 potassium 4.1 bicarbonate creatinine 0.64 Glucose 276 influenza type A RNA detected serum acetone positive EKG tracing personally reviewed by me-normal sinus rhythm nonspecific findings the some T-wave changes Chest x-ray film personally reviewed by me-questionable scanty infiltrate Assessment: -Acute influenza A pneumonitis, POA -Diabetic ketoacidosis, POA, corrected -Diabetes mellitus type 2, chronically on insulin, uncontrolled with hyperglycemia -Essential hypertension -Hyperlipidemia -Diabetic peripheral neuropathy -Bipolar disorder -Acute COPD exacerbation in a current smoker, POA Possible diabetic gastroparesis-outpatient workup in place Disposition: Home Patient Condition at Discharge: Stable Plan - Discharge Summary New Discharge Prescriptions: New Nicotine 21Mg/24Hr Patch [Habitrol] 1 patch TRANSDERM DAILY #14 patch Budesonide/Formoterol Fumarate [Symbicort 80-4.5 Mcg Inhaler] 1 puff INHALATION BID #1 inhaler Oseltamivir [Tamiflu] 75 mg PO Q12HR #10 cap Albuterol Inhaler [Ventolin Hfa Inhaler] 1 - 2 puff INHALATION RT-Q6H PRN #1 inhaler PRN Reason: Wheezing Fluticasone/Salmeterol [Airduo Respiclick 113-14 Mcg] 1 puff INHALATION BID #1 device Continue Omeprazole [PriLOSEC] 20 mg PO AC-BRKFST Metoprolol Succinate [Toprol XL] 25 mg PO DAILY Ertugliflozin Pidolate [Steglatro] 15 mg PO DAILY Atorvastatin [Lipitor] 40 mg PO DAILY Aspirin [Adult Low Dose Aspirin EC] 81 mg PO DAILY Changed Insulin Glargine,Hum.rec.anlog [Basaglar Kwikpen U-100] 20 unit SQ HS #0 Discontinued Simethicone [Gas-X] 125 mg PO QID PRN PRN Reason: GAS Polyethylene Glycol 3350 [Miralax] 17 gm PO DAILY PRN PRN Reason: Constipation Pioglitazone [Actos] 30 mg PO DAILY Lisinopril [Zestril] 20 mg PO BID amLODIPine [Norvasc] 5 mg PO DAILY Discharge Medication List Aspirin [Adult Low Dose Aspirin EC] 81 mg PO DAILY 06/04/19 [History] Atorvastatin [Lipitor] 40 mg PO DAILY 06/04/19 [History] Ertugliflozin Pidolate [Steglatro] 15 mg PO DAILY 06/04/19 [History] Metoprolol Succinate [Toprol XL] 25 mg PO DAILY 06/04/19 [History] Omeprazole [PriLOSEC] 20 mg PO AC-BRKFST 06/04/19 [History] Albuterol Inhaler [Ventolin Hfa Inhaler] 1 - 2 puff INHALATION RT-Q6H PRN #1 inhaler 06/06/19 [Rx] Budesonide/Formoterol Fumarate [Symbicort 80-4.5 Mcg Inhaler] 1 puff INHALATION BID #1 inhaler 06/06/19 [Rx] Fluticasone/Salmeterol [Airduo Respiclick 113-14 Mcg] 1 puff INHALATION BID #1 device 06/06/19 [Rx] Insulin Glargine,Hum.rec.anlog [Basaglar Kwikpen U-100] 20 unit SQ HS #0 06/06 [Rx] Nicotine 21Mg/24Hr Patch [Habitrol] 1 patch TRANSDERM DAILY #14 patch 06/06/19 [Rx] Oseltamivir [Tamiflu] 75 mg PO Q12HR #10 cap 06/06/19 [Rx] Follow up Appointment(s)/Referral(s): Senthil Valencia MD [Primary Care Provider] - 06/09/19 9:00 am Patient Instructions/Handouts: Diabetic Ketoacidosis (DC), Influenza (DC) Activity/Diet/Wound Care/Special Instructions: no smoking ac q achs - keep log Discharge Disposition: HOME SELF-CARE
[2019-06-06] MEDS ORDERED: SYMBICORT 160-4.5 MCG INHALER INHALATION SCH (20:00)
== END 2019-06-06 14:30 | disposition home or self-care (01) | DRG 637 ==
LOC: EC 00:25 → 2SICU 01:39
PROVIDERS: ADMIT Hospitalist; ATTEND Hospitalist
DX: E11.10 Type 2 diabetes mellitus with ketoacidosis without coma (principal); J10.01 Influenza due to other identified influenza virus with the same other identified influenza virus pneumonia; J44.1 Chronic obstructive pulmonary disease with (acute) exacerbation; E11.42 Type 2 diabetes mellitus with diabetic polyneuropathy; E78.5 Hyperlipidemia, unspecified; I10 Essential (primary) hypertension; K44.9 Diaphragmatic hernia without obstruction or gangrene; F31.9 Bipolar disorder, unspecified; F17.210 Nicotine dependence, cigarettes, uncomplicated; E11.43 Type 2 diabetes mellitus with diabetic autonomic (poly)neuropathy; K31.84 Gastroparesis; Z79.4 Long term (current) use of insulin; Z86.14 Personal history of Methicillin resistant Staphylococcus aureus infection; Z87.440 Personal history of urinary (tract) infections; Z80.1 Family history of malignant neoplasm of trachea, bronchus and lung; Z79.899 Other long term (current) drug therapy; Z79.82 Long term (current) use of aspirin; Z79.51 Long term (current) use of inhaled steroids; I25.2 Old myocardial infarction; Z90.49 Acquired absence of other specified parts of digestive tract; Z98.890 Other specified postprocedural states; Z98.51 Tubal ligation status; Z81.8 Family history of other mental and behavioral disorders; Z88.8 Allergy status to other drugs, medicaments and biological substances
CPT/HCPCS: 36415; 71045; 71046; 80048; 80051; 80053; 82009; 82565; 82803; 82947; 83605; 83690; 84100; 84484; 84520; 85025; 85610; 85730; 87502; 93005; 94640; 96361; 96374; 99291

== ENCOUNTER 2019-07-30 09:07 | Inpatient (IN) | payer OTHER ==
--- NOTE | 2019-07-30 09:14 | ED ---
Chest Pain HPI - General Stated Complaint: chest pain Time Seen by Provider: 07/30/19 09:07 Source: patient, EMS, RN notes reviewed Mode of arrival: EMS - History of Present Illness Initial Comments: This is a 49-year-old female with a history of previous heart disease COPD also history of hiatal hernia with surgery scheduled in the future but delayed due to the current pandemic who presents with complaints of the onset today of chest pain sharp and pressure-like started about 5 AM waking her from sleep she took a nitroglycerin he did get better from a 725 and recurred again around 7 AM she was brought in by EMS. She states the pain is now 3 she was given aspirin she took one of her own nitro as well as one by paramedics. Some relief from the nitroglycerin. She had 1 episode nausea vomiting with bilious-type vomiting. She denies any fevers chills cough phlegm production sweats. She has had a lot of weight loss recently due to the inability eat very much she states. No other current modifying factors she states she did have a cardiac catheterization but did not show much of a blockage. MD Complaint: chest pain - Related Data Home Medications Medication Instructions Recorded Confirmed Aspirin [Adult Low Dose Aspirin EC] 81 mg PO DAILY 06/04/19 07/30/19 Atorvastatin [Lipitor] 40 mg PO DAILY 06/04/19 07/30/19 Ertugliflozin Pidolate [Steglatro] 15 mg PO DAILY 06/04/19 07/30/19 Metoprolol Succinate [Toprol XL] 25 mg PO DAILY 06/04/19 07/30/19 Omeprazole [PriLOSEC] 20 mg PO AC-BRKFST 06/04/19 07/30/19 Albuterol Inhaler (Bulk) [Ventolin 2 puff INHALATION RT-Q6H PRN 07/30/19 07/30/19 Hfa Inhaler (Bulk)] Fluticasone/Salmeterol [Airduo 1 puff INHALATION RT-BID 07/30/19 07/30/19 Respiclick 113-14 Mcg] Insulin Glargine,Hum.rec.anlog 30 unit SQ HS 07/30/19 07/30/19 [Basaglar Kwikpen U-100] Lisinopril 20 mg PO BID 07/30/19 07/30/19 Pioglitazone [Actos] 15 mg PO DAILY 07/30/19 07/30/19 metFORMIN HCL 1,000 mg PO BID 07/30/19 07/30/19 Allergies Allergy/AdvReac Type Severity Reaction Status Date / Time sucralose AdvReac Intermediate Nausea & Verified 07/30/19 11:50 [From Splenda (sucralose)] Vomiting & Diarrhea Review of Systems ROS Statement: Those systems with pertinent positive or pertinent negative responses have been documented in the HPI. ROS Other: All systems not noted in ROS Statement are negative. EKG Findings - EKG Results: EKG: interpreted by FABID, sinus rhythm (Sinus rhythm with PACs rate 76. Interval 154 QRS 84 QT since QTC 14/470) Past Medical History Past Medical History: Chest Pain / Angina, Diabetes Mellitus, Hyperlipidemia, Hypertension, Myocardial Infarction ([place]) Additional Past Medical History / Comment(s): Rare migraines, IDDM type II, neuropathy bilateral feet.past uti,bipolar depression Last Myocardial Infarction Date:: 2014 History of Any Multi-Drug Resistant Organisms: MRSA Date of last positivie culture/infection: 2013/MRSA MDRO Source:: abdomen Past Surgical History: Cholecystectomy, Heart Catheterization, Tubal Ligation Additional Past Surgical History / Comment(s): Lorenzo eye sx as child to correct lazy eye, Past Anesthesia/Blood Transfusion Reactions: Postoperative Nausea & Vomiting (PONV) Past Psychological History: Bipolar, Depression Smoking Status: Current every day smoker Past Alcohol Use History: Rare Past Drug Use History: None Reported, Marijuana - Past Family History Father Additional Family Medical History / Comment(s): Father had hypoglcemia, bipolar depression. He of an aortic aneurysm rupture in his 70's Mother Family Medical History: Cancer Additional Family Medical History / Comment(s): Mother of lung cancer that metastasized to her brain when she was in her 30's. General Exam - General Exam Comments Initial Comments: This is a well-developed well-nourished awake alert oriented 3 female General appearance: alert, anxious Head exam: Present: atraumatic, normocephalic, normal inspection Eye exam: Present: normal appearance, PERRL, EOMI. Absent: scleral icterus, conjunctival injection, periorbital swelling ENT exam: Present: normal exam, mucous membranes moist Neck exam: Present: normal inspection, full ROM, other (No stridor JVD or bruits). Absent: tenderness, meningismus, lymphadenopathy Respiratory exam: Present: normal lung sounds bilaterally. Absent: respiratory distress, wheezes, rales, rhonchi, stridor Cardiovascular Exam: Present: regular rate, normal rhythm, normal heart sounds. Absent: systolic murmur, diastolic murmur, rubs, gallop, clicks GI/Abdominal exam: Present: soft, normal bowel sounds. Absent: distended, tenderness, guarding, rebound, rigid Extremities exam: Present: normal inspection, full ROM, normal capillary refill. Absent: tenderness, pedal edema, joint swelling, calf tenderness Back exam: Present: normal inspection Neurological exam: Present: alert, oriented X3, CN II-XII intact Psychiatric exam: Present: normal affect, normal mood Skin exam: Present: warm, dry, intact, normal color. Absent: rash Course Vital Signs 07/30/19 07/30/19 07/30/19 09:11 09:33 09:35 Temperature 97.8 F Pulse Rate 71 80 Respiratory 18 20 20 Rate Blood Pressure 135/84 O2 Sat by Pulse 98 100 Oximetry 07/30/19 07/30/19 10:05 12:08 Temperature Pulse Rate 70 82 Respiratory 16 18 Rate Blood Pressure 185/108 149/79 O2 Sat by Pulse 99 97 Oximetry Chest Pain MDM - MDM The patient does have persistent nausea and chest pain the chest pain does seem to be atypical. Due to her previous history she will be admitted the case is discussed with Dr. Riddle. She also does have PACs on her monitor as well as her EKG. She is getting IV magnesium Disposition Clinical Impression: Chest pain, Hypomagnesemia, Nausea & vomiting, Hiatal hernia Disposition: ADMITTED IP TO THIS HOSP Condition: Fair Referrals: Senthil Valencia MD [Primary Care Provider] - 1-2 days
[2019-07-30] MEDS ORDERED: ONDANSETRON 4 MG/2 ML VIAL IVP STA (09:24)
[2019-07-30] MEDS ORDERED: MAG HYDROX/AL HYDROX/SIMETH 30 ML, HYOSCYAMINE ELIXIR 10 ML PO STA ×2 (09:24)
--- NOTE | 2019-07-30 10:04 | XR ---
EXAMINATION TYPE: XR chest 2V DATE OF EXAM: 07/30/2019 HISTORY: Chest Pain. REFERENCE: Previous study dated 06/04/2019. FINDINGS: The lungs remain clear. Pleural space are clear. The heart is not enlarged. IMPRESSION: NO ACTIVE INTRATHORACIC DISEASE.
[2019-07-30 10:11] LABS: Basophils % (A) 0 %; Eosinophils % (A) 1 %; HCT 45.3 % (34.0-46.0); HGB 15.5 gm/dL (11.4-16.0); Lymphocytes # (A) 1.8 k/uL (1.0-4.8); Lymphocytes % (A) 26 %; MCH 31.2 pg (25.0-35.0); MCHC 34.3 g/dL (31.0-37.0); MCV 90.9 fL (80.0-100.0); Mean Platelet Volume 7.8; Monocytes # (A) 0.4 k/uL (0-1.0); Monocytes % (A) 5 %; Neutrophils # (A) 4.5 k/uL (1.3-7.7); Neutrophils % (A) 66 %; Platelet Count 213 k/uL (150-450); RBC 4.99 m/uL (3.80-5.40); WBC 6.8 k/uL (3.8-10.6)
[2019-07-30 10:14] LABS: ALT 9 U/L (4-34); AST 13 U/L (14-36); African American GFR (CKD) >90 (>60 ml/min/1.73 sqM); Albumin 3.7 g/dL (3.5-5.0); Alkaline Phosphatase 53 U/L (38-126); Anion Gap 8 mmol/L; Blood Urea Nitrogen 14 mg/dL (7-17); Calcium 9.3 mg/dL (8.4-10.2); Carbon Dioxide 26 mmol/L (22-30); Chloride 98 mmol/L (98-107); Glucose 295 mg/dL (74-99); Magnesium 1.5 mg/dL (1.6-2.3); Non-African American GFR(CKD) >90 (>60 ml/min/1.73 sqM); Potassium 3.8 mmol/L (3.5-5.1); Sodium 132 mmol/L (137-145); Total Bilirubin 0.8 mg/dL (0.2-1.3); Total Protein 6.5 g/dL (6.3-8.2)
[2019-07-30 10:22] LABS: Prothrombin Time 10.6 sec (9.0-12.0)
[2019-07-30 10:29] LABS: Partial Thromboplastin Time 22.2 sec (22.0-30.0)
[2019-07-30] MEDS ORDERED: SODIUM CHLORIDE 0.9% 500 ML 500 ML IV STA (10:30)
[2019-07-30 10:38] LABS: D-Dimer 1.2 mg/L FEU (<0.60)
[2019-07-30] MEDS ORDERED: MAGNESIUM SULFATE-D5W PMX 1 GM in DEXTROSE/WATER 1 100ML.BAG IVPB ONE (10:57)
[2019-07-30] MEDS ORDERED: METOCLOPRAMIDE 5 MG/ML 2 ML VIAL IVP STA (10:59)
--- NOTE | 2019-07-30 11:32 | CT ---
EXAMINATION TYPE: CT angio chest DATE OF EXAM: 07/30/2019 11:23 AM COMPARISON: None. HISTORY: PE suspected CT DLP: 277.5 mGycm Automated exposure control for dose reduction was used. CONTRAST: CTA scan of the thorax is performed without and with IV Contrast, patient injected with 100 ml mL of Isovue 370, pulmonary embolism protocol. . FINDINGS: The lungs are clear. There is no significant axillary, internal mammary, mediastinal or hilar adenopathy. There is no evidence of pulmonary embolus. The aorta is normal in caliber without evidence of dissection. The heart is not enlarged.. Visualized portions of the upper abdomen are unremarkable. IMPRESSION: THIS EXAMINATION IS NEGATIVE FOR PULMONARY EMBOLUS.
[2019-07-30] MEDS ORDERED: NITROGLYCERIN SL TABS 0.4 MG TAB SUBLINGUAL PRN (12:21)
[2019-07-30] MEDS ORDERED: ALBUTEROL NEBULIZED 2.5 MG/3 ML INHALATION PRN (12:22)
[2019-07-30] MEDS: SODIUM CHLORIDE 0.9% 1,000 ML IV SCH ×3 (13:33→22:03)
--- NOTE | 2019-07-30 15:26 | P.HPIM ---
History of Present Illness H&P Date: 07/30/19 Chief Complaint: Chest pain History of presenting complaint: This is a pleasant 49-year-old patient of Dr. Valencia. Chronic stable medical conditions include hypertension, hyperlipidemia, peripheral neuropathy, bipolar depression. Patient for last few months been having persistent nausea vomiting. Has been worked out of Dr. Curran to [facility] system. Patient did have an EGD that was unremarkable with hiatal hernia. She supposed to have a gastric emptying study. Patient continues to smoke. She is awaiting further studies and possible surgical intervention for MISSY hernia. Patient has continued to smoke. This morning around 5:00 she developed a pressure in the lower sternal area. [place] [employer]. Tobacco nitroglycerin with some help. Neck: Normal. No dizziness no lightheadedness. No fever no chills. Patient has persistent nausea or vomiting going on for quite some time intermittently felt to be related to her hiatal hernia. Admitted for cardiac workup. Patient is continued to smoke Review of systems: GEN.: Tired EYES: None HEENT: None NECK: None RESPIRATORY: Occasional wheezing CARDIOVASCULAR: As above GASTROINTESTINAL: Intermittent nausea vomiting GENITOURINARY: None MUSCULOSKELETAL: Chronic muscle and joint pains LYMPHATICS: None HEMATOLOGICAL: None PSYCHIATRY: Anxious NEUROLOGICAL: None Past medical history to include: Diabetes, hypertension, hyperlipidemia, coronary artery disease, peripheral neuropathy, COPD, bipolar disorder Social history: Smokes a pack to pack and half a day for close to 40 years, marijuana every other day, lives with her fianc Physical examination: VITAL SIGNS: 97.8, 71, 18, and 135/84, 98% on room air GENERAL: BMI 27.1, laying in bed tired appearing. EYES: Pupils equal. Conjunctiva normal. HEENT: External appearance of nose and ears normal, oral cavity normal. NECK: JVD not raised; masses not palpable. HEART: First and second heart sounds are normal; no edema. LUNGS: Respiratory rate increased, decreased breath sounds. ABDOMEN: Soft, nontender, liver spleen not palpable, no masses palpable. PSYCH: Alert and oriented x3; mood and affect slightly anxious NEUROLOGICAL: Cranial nerves grossly intact; no facial asymmetry, power and sensation grossly intact. LYMPHATICS: No lymph nodes palpable in the axilla and neck INVESTIGATIONS, reviewed in the clinical context: White count 6.8 hemoglobin 13.5 platelets 213 percussion 3.8 creatinine 0.55 glucose 295 Troponin I less than 0.012 EKG tracing personally reviewed by me-sinus rhythm Chest CTA negative for PE Chest x-ray film personally reviewed by me-no obvious infiltrates Assessment: -Anterior chest wall pain, rule out a cardiac cause patient is factors include smoking, diabetes, hypertension, hyperlipidemia. -Diabetes mellitus type 2, chronically on insulin, uncontrolled with hyperglycemia -Essential hypertension -Hyperlipidemia -Diabetic peripheral neuropathy -Bipolar disorder -COPD current smoker, -Intermittent nausea vomiting-outpatient workup in place Plan: Serial cardiac enzymes and place. Cardiology is consulted. Home medications resumed. Accu-Cheks to be followed. Care was discussed with the patient. Nicotine patch. Past Medical History Past Medical History: Chest Pain / Angina, Diabetes Mellitus, Hyperlipidemia, Hypertension, Myocardial Infarction ([place]) Additional Past Medical History / Comment(s): Rare migraines, IDDM type II, neuropathy bilateral feet.past uti,bipolar depression Last Myocardial Infarction Date:: 2014 History of Any Multi-Drug Resistant Organisms: MRSA Date of last positivie culture/infection: 2013/MRSA MDRO Source:: abdomen Past Surgical History: Cholecystectomy, Heart Catheterization, Tubal Ligation Additional Past Surgical History / Comment(s): Lorenzo eye sx as child to correct lazy eye, Past Anesthesia/Blood Transfusion Reactions: Postoperative Nausea & Vomiting (PONV) Past Psychological History: Bipolar, Depression Additional Psychological History / Comment(s): Pt resides with her fiaydee. She stated she is able to drive but has no vehicle. She gets to appointments thru her insurance company or by bus. She receives psychiatric care thru [facility]. She states she has had fleeting thoughts of suicide regularly for years but stated "i will never act on them". Smoking Status: Current every day smoker Past Alcohol Use History: Rare Additional Past Alcohol Use History / Comment(s): Pt started smoking in 1982 and is currently a half pack a day smoker. Past Drug Use History: None Reported, Marijuana Additional Drug Use History / Comment(s): Pt states she smokes marijuana most days - Past Family History Father Additional Family Medical History / Comment(s): Father had hypoglcemia, bipolar depression. He of an aortic aneurysm rupture in his 70's Mother Family Medical History: Cancer Additional Family Medical History / Comment(s): Mother of lung cancer that metastasized to her brain when she was in her 30's. Medications and Allergies Home Medications Medication Instructions Recorded Confirmed Type Aspirin [Adult Low Dose Aspirin EC] 81 mg PO DAILY 06/04/19 07/30/19 History Atorvastatin [Lipitor] 40 mg PO DAILY 06/04/19 07/30/19 History Ertugliflozin Pidolate [Steglatro] 15 mg PO DAILY 06/04/19 07/30/19 History Metoprolol Succinate [Toprol XL] 25 mg PO DAILY 06/04/19 07/30/19 History Omeprazole [PriLOSEC] 20 mg PO AC-BRKFST 06/04/19 07/30/19 History Albuterol Inhaler (Bulk) [Ventolin 2 puff INHALATION RT-Q6H PRN 07/30/19 07/30/19 History Hfa Inhaler (Bulk)] Fluticasone/Salmeterol [Airduo 1 puff INHALATION RT-BID 07/30/19 07/30/19 Histor y Respiclick 113-14 Mcg] Insulin Glargine,Hum.rec.anlog 30 unit SQ HS 07/30/19 07/30/19 History [Basaglar Kwikpen U-100] Lisinopril 20 mg PO BID 07/30/19 07/30/19 History Pioglitazone [Actos] 15 mg PO DAILY 07/30/19 07/30/19 History metFORMIN HCL 1,000 mg PO BID 07/30/19 07/30/19 History Allergies Allergy/AdvReac Type Severity Reaction Status Date / Time sucralose AdvReac Intermediate Nausea & Verified 07/30/19 11:50 [From Splenda (sucralose)] Vomiting & Diarrhea Physical Exam Vitals: Vital Signs Temp Pulse Resp BP Pulse Ox 07/30/19 13:37 97.9 F 84 16 123/72 99 07/30/19 13:18 99 18 164/91 98 07/30/19 12:08 82 18 149/79 97 07/30/19 10:05 70 16 185/108 99 07/30/19 09:35 20 07/30/19 09:33 80 20 100 07/30/19 09:11 97.8 F 71 18 135/84 98 Intake and Output 07/30/19 07/30/19 07/30/19 06:59 14:59 22:59 Intake Total 200 Balance 200 Intake: Intake, IV Titration 100 Amount Sodium Chloride 0.9% 1, 100 000 ml @ 100 mls/hr IV . Q10H [facility] Rx#:[id number] Oral 100 Other: Weight 79.832 kg Results CBC & Chem 7: 07/30/19 09:40 07/30/19 09:40 Labs: Abnormal Lab Results - Last 24 Hours (Table) 07/30/19 07/30/19 Range/Units 09:40 09:40 D-Dimer 1.20 H (<0.60) mg/L FEU Sodium 132 L (137-145) mmol/L Glucose 295 H (74-99) mg/dL Magnesium 1.5 L (1.6-2.3) mg/dL AST 13 L (14-36) U/L
[2019-07-30] MEDS: ENOXAPARIN 40 MG/0.4 ML SYRINGE SQ SCH (16:33)
[2019-07-30] MEDS: NICOTINE 21MG/24HR PATCH TRANSDERM SCH ×2 (16:33→16:35)
[2019-07-30 16:53] LABS: Glucose,Whole Blood 193 mg/dL (75-99)
[2019-07-30] MEDS: metFORMIN 500 MG TAB PO SCH (18:02)
[2019-07-30] MEDS: INSULIN ASPART (NovoLOG) 100 UNIT/ML VIAL SQ SCH ×2 (18:02→20:51)
[2019-07-30] MEDS: SYMBICORT 80-4.5 MCG INHALER INHALATION SCH (19:26)
[2019-07-30] MEDS: LISINOPRIL 20 MG TAB PO SCH (20:15)
[2019-07-30 20:37] LABS: Glucose,Whole Blood 186 mg/dL (75-99)
[2019-07-30] MEDS ORDERED: INSULIN DETEMIR (LEVEMIR) 100 UNIT/ML SYR SQ SCH (21:00)
[2019-07-31 03:12] LABS: Cholesterol 205 mg/dL (<200); HDL Cholesterol 44 mg/dL (40-60); LDL Cholesterol,Calculated 133 mg/dL (0-99); Triglycerides 142 mg/dL (<150)
[2019-07-31 04:26] LABS: Glucose,Whole Blood 56 mg/dL (75-99)
[2019-07-31 04:57] LABS: Glucose,Whole Blood 95 mg/dL (75-99)
[2019-07-31 06:03] LABS: Glucose,Whole Blood 128 mg/dL (75-99)
[2019-07-31] MEDS: INSULIN ASPART (NovoLOG) 100 UNIT/ML VIAL SQ SCH ×4 (06:05→20:04)
[2019-07-31] MEDS: PANTOPRAZOLE 40 MG TABLET PO SCH (06:29)
[2019-07-31] MEDS: metFORMIN 500 MG TAB PO SCH ×2 (06:29→17:36)
[2019-07-31] MEDS: SYMBICORT 80-4.5 MCG INHALER INHALATION SCH ×2 (07:37→19:52)
[2019-07-31] MEDS ORDERED: ASPIRIN 325 MG TAB PO SCH (09:00)
[2019-07-31] MEDS: METOPROLOL SUCCINATE (ER) 25 MG TAB.ER.24H PO SCH (09:01)
[2019-07-31] MEDS: LISINOPRIL 20 MG TAB PO SCH ×2 (09:01→20:05)
[2019-07-31] MEDS: ENOXAPARIN 40 MG/0.4 ML SYRINGE SQ SCH (09:01)
[2019-07-31] MEDS: NICOTINE 21MG/24HR PATCH TRANSDERM SCH (09:02)
[2019-07-31] MEDS: PIOGLITAZONE 15 MG TAB PO SCH (09:02)
[2019-07-31] MEDS: Ertugliflozin Pidolate [Steglatro] PO SCH (09:02)
[2019-07-31] MEDS: ATORVASTATIN 40 MG TAB PO SCH (09:02)
[2019-07-31] MEDS: SODIUM CHLORIDE 0.9% 1,000 ML IV SCH (09:03)
[2019-07-31 11:32] LABS: Glucose,Whole Blood 134 mg/dL (75-99)
--- NOTE | 2019-07-31 16:17 | P.PN ---
Progress Note - Text Progress Note Date: 07/31/19 Chief Complaint: Chest pain History of presenting complaint: This is a pleasant 49-year-old patient of Dr. Valencia. Chronic stable medical conditions include hypertension, hyperlipidemia, peripheral neuropathy, bipolar depression. Patient for last few months been having persistent nausea vomiting. Has been worked out of Dr. Curran to [facility] system. Patient did have an EGD that was unremarkable with hiatal hernia. She supposed to have a gastric emptying study. Patient continues to smoke. She is awaiting further studies and possible surgical intervention for MISSY hernia. Patient has continued to smoke. This morning around 5:00 she developed a pressure in the lower sternal area. [place] [employer]. Tobacco nitroglycerin with some help. Neck: Normal. No dizziness no lightheadedness. No fever no chills. Patient has persistent nausea or vomiting going on for quite some time intermittently felt to be related to her hiatal hernia. Admitted for cardiac workup. Patient is continued to smoke Admitted with chest pain. Today-no further episode. Breathing stable. No chest pain. Did tolerate her diet. Review of systems: Was done for constitutional, cardiovascular, GI, pulmonary. relevant finding as above Active Medications Albuterol Sulfate (Ventolin Nebulized) 2.5 mg INHALATION RT-Q6H PRN PRN Reason: Wheezing Aspirin (Aspirin) 325 mg PO DAILY [facility] Last Admin: 07/31/19 09:02 Dose: 325 mg Documented by: Atorvastatin Calcium (Lipitor) 40 mg PO DAILY [facility] Last Admin: 07/31/19 09:02 Dose: 40 mg Documented by: Budesonide/Formoterol Fumarate (Symbicort 80-4.5 Mcg Inhaler) 2 puff INHALATION RT-BID [facility] Last Admin: 07/31/19 07:37 Dose: 2 puff Documented by: Enoxaparin Sodium (Lovenox) 40 mg SQ DAILY [facility] Last Admin: 07/31/19 09:01 Dose: 40 mg Documented by: Sodium Chloride (Saline 0.9%) 1,000 mls @ 100 mls/hr IV .Q10H [facility] Last Admin: 07/31/19 09:03 Dose: 100 mls/hr Documented by: Insulin Aspart (Novolog) 0 unit SQ ACHS [facility]; Protocol Last Admin: 07/31/19 12:47 Dose: 1 unit Documented by: Insulin Detemir (Levemir) 30 unit SQ HS [facility] Last Admin: 07/30/19 20:52 Dose: 30 unit Documented by: Lisinopril (Zestril) 20 mg PO BID [facility] Last Admin: 07/31/19 09:01 Dose: 20 mg Documented by: Metformin HCl (Glucophage) 1,000 mg PO BID-W/MEALS [facility] Last Admin: 07/31/19 06:29 Dose: 1,000 mg Documented by: Metoprolol Succinate (Toprol Xl) 25 mg PO DAILY [facility] Last Admin: 07/31/19 09:01 Dose: 25 mg Documented by: Nicotine (Habitrol 21mg/24hr Patch) 1 patch TRANSDERM DAILY [facility] Last Admin: 07/31/19 09:02 Dose: Not Given Documented by: Nitroglycerin (Nitrostat) 0.4 mg SUBLINGUAL Q5M PRN PRN Reason: Chest Pain Ertugliflozin (Pidolate [Steglatro]) 15 mg PO DAILY [facility] Last Admin: 07/31/19 09:02 Dose: Not Given Documented by: Ondansetron HCl (Zofran) 4 mg IVP Q8HR PRN PRN Reason: Nausea Pantoprazole Sodium (Protonix) 40 mg PO AC-BRKFST [facility] Last Admin: 07/31/19 06:29 Dose: 40 mg Documented by: Pioglitazone HCl (Actos) 15 mg PO DAILY [facility] Last Admin: 07/31/19 09:02 Dose: 15 mg Documented by: Physical examination: VITAL SIGNS: 98.8, 91, 18, 170 inbed,99%onroomair GENERAL: Sitting in the edge of the bed, not in distress EYES: Pupils equal. Conjunctiva normal. HEENT: External appearance of nose and ears normal, oral cavity normal. NECK: JVD not raised; masses not palpable. HEART: First and second heart sounds are normal; no edema. LUNGS: Respiratory rate increased, decreased breath sounds. ABDOMEN: Soft, nontender, liver spleen not palpable, no masses palpable. PSYCH: Alert and oriented x3; mood and affect slightly anxious INVESTIGATIONS, reviewed in the clinical context: White count 6.8 hemoglobin 13.5 platelets 213 percussion 3.8 creatinine 0.55 glucose 295 Troponin I less than 0.012 EKG tracing personally reviewed by me-sinus rhythm Chest CTA negative for PE Chest x-ray film personally reviewed by me-no obvious infiltrates Assessment: -Anterior chest wall pain, rule out a cardiac cause patient is factors include smoking, diabetes, hypertension, hyperlipidemia. -Diabetes mellitus type 2, chronically on insulin, uncontrolled with hyperglycemia -Essential hypertension -Hyperlipidemia -Diabetic peripheral neuropathy -Bipolar disorder -COPD current smoker, -Intermittent nausea vomiting-outpatient workup in place Plan: Episode of hypoglycemia. Cut back on the evening dose of Levemir. Discussed the patient. Follow with cardiology.
[2019-07-31 16:34] LABS: Glucose,Whole Blood 82 mg/dL (75-99)
[2019-07-31] MEDS: ONDANSETRON 4 MG/2 ML VIAL IVP PRN (18:35)
[2019-07-31 20:00] LABS: Glucose,Whole Blood 130 mg/dL (75-99)
[2019-07-31] MEDS ORDERED: INSULIN DETEMIR (LEVEMIR) 100 UNIT/ML SYR SQ SCH (21:00)
[2019-08-01] MEDS: ONDANSETRON 4 MG/2 ML VIAL IVP PRN (03:58)
[2019-08-01] MEDS: SODIUM CHLORIDE 0.9% 1,000 ML IV SCH ×2 (03:58→14:15)
[2019-08-01 06:14] LABS: Glucose,Whole Blood 160 mg/dL (75-99)
[2019-08-01] MEDS: INSULIN ASPART (NovoLOG) 100 UNIT/ML VIAL SQ SCH ×2 (06:26→14:10)
[2019-08-01] MEDS: metFORMIN 500 MG TAB PO SCH (06:26)
[2019-08-01] MEDS: PANTOPRAZOLE 40 MG TABLET PO SCH (06:27)
[2019-08-01] MEDS: SYMBICORT 80-4.5 MCG INHALER INHALATION SCH (07:13)
[2019-08-01 07:56] VITALS: RESP 16
[2019-08-01 08:54] LABS: ALT 9 U/L (4-34); AST 15 U/L (14-36); African American GFR (CKD) >90 (>60 ml/min/1.73 sqM); Albumin 2.8 g/dL (3.5-5.0); Alkaline Phosphatase 40 U/L (38-126); Anion Gap 6 mmol/L; Blood Urea Nitrogen 6 mg/dL (7-17); Calcium 8.1 mg/dL (8.4-10.2); Carbon Dioxide 23 mmol/L (22-30); Chloride 104 mmol/L (98-107); Glucose 165 mg/dL (74-99); Magnesium 1.5 mg/dL (1.6-2.3); Non-African American GFR(CKD) >90 (>60 ml/min/1.73 sqM); Potassium 3.9 mmol/L (3.5-5.1); Sodium 133 mmol/L (137-145); Total Bilirubin 0.5 mg/dL (0.2-1.3); Total Protein 5.5 g/dL (6.3-8.2)
[2019-08-01] MEDS ORDERED: ASPIRIN 81 MG PO SCH (09:00)
[2019-08-01] MEDS ORDERED: DOBUTamine DRIP for NUC MED 500 MG in DEXTROSE/WATER 1 250ML.BAG IV ONE (09:15)
[2019-08-01] MEDS: Ertugliflozin Pidolate [Steglatro] PO SCH (10:00)
[2019-08-01] MEDS ORDERED: MAGNESIUM OXIDE 400 MG TAB PO SCH (10:30)
--- NOTE | 2019-08-01 11:24 | P.CRDCN ---
History of Present Illness Consult date: 08/01/19 Requesting physician: Dileep Riddle Consult reason: chest pain Chief complaint: Chest heaviness with nausea and vomiting History of present illness: This is a 49-year-old female with history of nicotine dependence, diabetes, hyperlipidemia, hypertension, COPD, mild coronary artery disease by cardiac catheterization performed in 2014, history of hiatal hernia with recent weight loss of over 100 pounds since November according to the patient. She presented to the hospital with symptoms of chest pressure and heaviness with associated episodes of nausea and vomiting. According to the patient, she's had multiple episodes of vomiting and has been unable to eat for several months a r egular diet. She has not been taking her insulin at home as prescribed because of this. Blood pressure 130/70 with a heart rate in the 80s. Chest x-ray did not reveal any active disease. CTA of the chest was negative for pulmonary embolism. EKG shows a normal sinus rhythm with frequent PACs and PVCs. Laboratory data was reviewed, white blood cell count 6.8, hemoglobin 15.5, platelet count 213, d-dimer 1.2, sodium 132, potassium 3.8, BUN 14, creatinine 0.5, blood sugar 295. Troponins were negative 3, magnesium 1.5, cholesterol 205, LDL 133, HDL 44 and triglycerides 142, BNP level 165. At the time of my examination this morning, patient denies any chest pressure or heaviness at present, she did have one further episode of vomiting earlier this morning. Patient states she was scheduled as an outpatient in June to undergo GI workup at [facility] but because of the faustin virus this has been delayed. She is quite concerned that the symptoms are all coming from her hiatal hernia and she is requesting to be seen by GI service here. Past Medical History Past Medical History: Chest Pain / Angina, Diabetes Mellitus, Hyperlipidemia, Hypertension, Myocardial Infarction ([place]) Additional Past Medical History / Comment(s): Rare migraines, IDDM type II, neuropathy bilateral feet.past uti,bipolar depression Last Myocardial Infarction Date:: 2014 History of Any Multi-Drug Resistant Organisms: MRSA Date of last positivie culture/infection: 2013/MRSA MDRO Source:: abdomen Past Surgical History: Cholecystectomy, Heart Catheterization, Tubal Ligation Additional Past Surgical History / Comment(s): Lorenzo eye sx as child to correct lazy eye, Past Anesthesia/Blood Transfusion Reactions: Postoperative Nausea & Vomiting (PONV) Past Psychological History: Bipolar, Depression Additional Psychological History / Comment(s): Pt resides with her tiffany. She stated she is able to drive but has no vehicle. She gets to appointments thru her insurance company or by bus. She receives psychiatric care thru [facility]. She states she has had fleeting thoughts of suicide regularly for years but stated "i will never act on them". Smoking Status: Current every day smoker Past Alcohol Use History: Rare Additional Past Alcohol Use History / Comment(s): Pt started smoking in 1982 and is currently a half pack a day smoker. Past Drug Use History: None Reported, Marijuana Additional Drug Use History / Comment(s): Pt states she smokes marijuana most days - Past Family History Father Additional Family Medical History / Comment(s): Father had hypoglcemia, bipolar depression. He of an aortic aneurysm rupture in his 70's Mother Family Medical History: Cancer Additional Family Medical History / Comment(s): Mother of lung cancer that metastasized to her brain when she was in her 30's. Medications and Allergies Home Medications Medication Instructions Recorded Confirmed Type Aspirin [Adult Low Dose Aspirin EC] 81 mg PO DAILY 06/04/19 07/30/19 History Atorvastatin [Lipitor] 40 mg PO DAILY 06/04/19 07/30/19 History Ertugliflozin Pidolate [Steglatro] 15 mg PO DAILY 06/04/19 07/30/19 History Metoprolol Succinate [Toprol XL] 25 mg PO DAILY 06/04/19 07/30/19 History Omeprazole [PriLOSEC] 20 mg PO AC-BRKFST 06/04/19 07/30/19 History Albuterol Inhaler (Bulk) [Ventolin 2 puff INHALATION RT-Q6H PRN 07/30/19 07/30/19 History Hfa Inhaler (Bulk)] Fluticasone/Salmeterol [Airduo 1 puff INHALATION RT-BID 07/30/19 07/30/19 History Respiclick 113-14 Mcg] Insulin Glargine,Hum.rec.anlog 30 unit SQ HS 07/30/19 07/30/19 History [Maryaglwilmer Barron U-100] Lisinopril 20 mg PO BID 07/30/19 07/30/19 History Pioglitazone [Actos] 15 mg PO DAILY 07/30/19 07/30/19 History metFORMIN HCL 1,000 mg PO BID 07/30/19 07/30/19 History Allergies Allergy/AdvReac Type Severity Reaction Status Date / Time sucralose AdvReac Intermediate Nausea & Verified 07/30/19 11:50 [From Splenda (sucralose)] Vomiting & Diarrhea Physical Exam Vitals: Vital Signs Temp Pulse Resp BP BP Pulse Ox 08/01/19 07:55 80 16 130/77 98 08/01/19 04:00 98.7 F 81 18 155/83 100 08/01/19 00:00 98.1 F 52 L 18 171/79 99 07/31/19 20:00 97.8 F 83 18 130/86 100 07/31/19 15:50 98.9 F 79 18 114/60 98 07/31/19 11:50 98.8 F 91 18 117/79 99 Intake and Output 07/31/19 08/01/19 08/01/19 22:59 06:59 14:59 Intake Total 180 150 Output Total 180 400 Balance 0 150 -400 Intake: Oral 180 150 Output: Urine 180 400 Other: Voiding Method Toilet Toilet # Voids 1 2 Weight 75.6 kg PHYSICAL EXAMINATION: GENERAL: 49-year-old female in no acute distress at the time of my examination HEENT: Head is atraumatic, normocephalic. Pupils equal, round. Sclera anicteric. Conjunctiva are clear. Mucous membranes of the mouth are moist. Neck is supple. There is no elevated jugular venous pressure. No carotid bruit is heard. HEART EXAMINATION: Heart S1, S2 normal. No murmur or gallop heard. CHEST EXAMINATION: Lungs are clear to auscultation and precussion. No chest wall tenderness is noted on palpation or with deep breathing. ABDOMEN: Soft, nontender. Bowel sounds are heard. No organomegaly noted. EXTREMITIES: 2+ peripheral pulses with no evidence of peripheral edema and no c assisted tenderness noted. NEUROLOGIC patient is awake, alert and oriented 3 . . Results 07/30/19 09:40 08/01/19 08:09 Cardiac Enzymes 08/01/19 Range/Units 08:09 AST 15 (14-36) U/L Comprehensive Metabolic Panel 08/01/19 Range/Units 08:09 Sodium 133 L (137-145) mmol/L Potassium 3.9 (3.5-5.1) mmol/L Chloride 104 (98-107) mmol/L Carbon Dioxide 23 (22-30) mmol/L BUN 6 L (7-17) mg/dL Creatinine 0.39 L (0.52-1.04) mg/dL Glucose 165 H (74-99) mg/dL Calcium 8.1 L (8.4-10.2) mg/dL AST 15 (14-36) U/L ALT 9 (4-34) U/L Alkaline Phosphatase 40 (38-126) U/L Total Protein 5.5 L (6.3-8.2) g/dL Albumin 2.8 L (3.5-5.0) g/dL Current Medications Generic Name Dose Route Start Last Admin Trade Name Freq PRN Reason Stop Dose Admin Albuterol Sulfate 2.5 mg 07/30/19 12:22 Ventolin Nebulized INHALATION RT-Q6H PRN Wheezing Aspirin 81 mg 08/01/19 09:00 Aspirin PO DAILY LEANDRA Atorvastatin Calcium 40 mg 07/31/19 09:00 07/31/19 09:02 Lipitor PO 40 mg DAILY LEANDRA Administration Budesonide/Formoterol Fumarate 2 puff 07/30/19 20:00 08/01/19 07:13 Symbicort 80-4.5 Mcg Inhaler INHALATION 2 puff RT-BID LEANDRA Administration Enoxaparin Sodium 40 mg 07/30/19 15:30 07/31/19 09:01 Lovenox SQ 40 mg DAILY LEANDRA Administration Sodium Chloride 1,000 mls @ 100 mls/hr 07/30/19 12:30 08/01/19 03:58 Saline 0.9% IV 100 mls/hr .Q10H LEANDRA Administration Dobutamine HCl/Dextrose 500 mg 250 mls @ 22.68 mls/hr 08/01/19 09:15 / IV Solution IV 08/01/19 20:16 .Q11H2M ONE Protocol 10 MCG/KG/MIN Insulin Aspart 0 unit 07/30/19 17:30 08/01/19 06:26 Novolog SQ Not Given ACHS [facility] Protocol Insulin Detemir 22 unit 07/31/19 21:00 07/31/19 20:04 Levemir SQ Not Given HS [facility]ANDRA Lisinopril 20 mg 07/30/19 21:00 07/31/19 20:05 Zestril PO Not Given BID [facility] Magnesium Oxide 400 mg 08/01/19 10:30 08/01/19 10:43 Mag-Ox PO 400 mg TID LEANDRA Administration Metformin HCl 1,000 mg 07/30/19 17:30 08/01/19 06:26 Glucophage PO Not Given BID-W/MEALS [facility] Metoprolol Succinate 25 mg 07/31/19 09:00 07/31/19 09:01 Toprol Xl PO 25 mg DAILY [facility]AN[facility]A Administration Nicotine 1 patch 07/30/19 15:30 07/31/19 09:02 Habitrol 21mg/24hr Patch TRANSDERM Not Given DAILY [facility] Nitroglycerin 0.4 mg 07/30/19 12:21 Nitrostat SUBLINGUAL Q5M PRN Chest Pain Ertugliflozin 15 mg 07/31/19 09:00 08/01/19 10:00 Pidolate [Steglatro] PO Not Given DAILY [facility] Ondansetron HCl 4 mg 07/30/19 12:25 08/01/19 03:58 Zofran IVP 4 mg Q8HR PRN Administration Nausea Pantoprazole Sodium 40 mg 07/31/19 07:30 08/01/19 06:27 Protonix PO Not Given AC-BRKFST [facility] Pioglitazone HCl 15 mg 07/31/19 09:00 07/31/19 09:02 Actos PO 15 mg DAILY [facility]ANDRA Administration Intake and Output 07/31/19 08/01/19 08/01/19 22:59 06:59 14:59 Intake Total 180 150 Output Total 180 400 Balance 0 150 -400 Intake: Oral 180 150 Output: Urine 180 400 Other: Voiding Method Toilet Toilet # Voids 1 2 Weight 75.6 kg 07/30/19 09:40 08/01/19 08:09 EKG Interpretations (text) EKG shows normal sinus rhythm with frequent PACs and PVCs Assessment and Plan Plan: Assessment and plan #1 chest discomfort, atypical for acute coronary syndrome, troponins negative 3. EKG shows normal sinus rhythm with no acute changes. #2 history of mild coronary artery disease by cardiac catheterization performed in 2014 which revealed mild triple-vessel coronary artery disease #3 diabetes #4 hypertension #5 hyperlipidemia #6 COPD #7 Nicotine dependence #8 hiatal hernia with significant weight loss over the past 10 months. Plan From cardiology's perspective, we will obtain an echocardiogram with Doppler study. We will also schedule the patient for dobutamine echocardiographic study. From our perspective at the tip dobutamine echo comes back negative, patient may be able to be discharged and follow-up with Dr. Zuniga as an outpatient. DNP note has been reviewed, I agree with a documented findings and plan of care. Patient was seen and examined.
[2019-08-01 11:43] LABS: Glucose,Whole Blood 125 mg/dL (75-99)
[2019-08-01 12:07] VITALS: TEMP 98.1
--- NOTE | 2019-08-01 13:58 | ECHOS ---
STRESS ECHOCARDIOGRAM INDICATIONS: Chest pain. MEDICATIONS: None BASELINE HEART RATE: 76 BASELINE BLOOD PRESSURE: 110/81 MAXIMUM HEART RATE: 145 MAXIMUM BLOOD PRESSURE: 177/90 85% MPHR: 144 100% MPHR: 169 MAXIMUM STAGE REACHED: 3 CLINICAL INFORMATION: Baseline EKG shows sinus rhythm, right bundle branch block and occasional PACs. The patient is in sinus rhythm with normal access and frequent PVCs. Patient was given intravenous dobutamine over a period of 9 minutes as per protocol, did not have chest pain or diagnostic ST-segment depression. Patient attained 87% of predicted maximal heart rate. Baseline echo shows normal left ventricular size, wall motion, systolic function. Post dobutamine infusion, there is normal hyperdynamic with myocardium noted. CONCLUSION: 1. Negative stress test by EKG criteria. 2. Negative dobutamine echo. MMODL / IJN: [id number] /
[2019-08-01] MEDS: NICOTINE 21MG/24HR PATCH TRANSDERM SCH (14:15)
[2019-08-01] MEDS: ATORVASTATIN 40 MG TAB PO SCH (14:15)
[2019-08-01] MEDS: METOPROLOL SUCCINATE (ER) 25 MG TAB.ER.24H PO SCH (14:15)
[2019-08-01] MEDS: PIOGLITAZONE 15 MG TAB PO SCH (14:15)
[2019-08-01] MEDS: ENOXAPARIN 40 MG/0.4 ML SYRINGE SQ SCH (14:15)
[2019-08-01 15:29] VITALS: BP 123/73; PULSE 71
[2019-08-01] MEDS: LISINOPRIL 20 MG TAB PO SCH (15:29)
[2019-08-01] MEDS ORDERED: PANTOPRAZOLE 40 MG TABLET PO SCH (17:30)
--- NOTE | 2019-08-01 17:52 | P.CONS ---
History of Present Illness - Reason for Consult Consult date: 08/01/19 Nausea and vomiting Requesting physician: Dileep Riddle - Chief Complaint Chest pain, nausea and vomiting - History of Present Illness 49-year-old female with a medical history significant for hypertension, hyperlipidemia, peripheral neuropathy, bipolar depression, substance abuse with patient reporting daily use of marijuana who presented to the hospital with complaints of chest pain, nausea and vomiting. The patient has had evaluation at [facility] and reports a medical history significant for a hiatal hernia. She reports episodes of nausea and vomiting occurring since November 2018. She reports frequent episodes of vomiting. She was scheduled for further evaluation in June 2019 that this has been postponed due to the outbreak of Mcqueen virus. She reports trials of Zofran and Reglan in the past with no improvement in symptoms. Currently she is on Protonix once daily. Review of Systems REVIEW OF SYSTEMS: CONSTITUTIONAL: Denies any fevers, chills, but does report possible weight in association with her nausea and vomiting. CARDIOVASCULAR: Denies any chest pain at this time but had reported chest pain on presentation, palpitations high or low blood pressures RESPIRATORY: Denies any shortness of breath, hemoptysis or cough. GENITOURINARY: No dysuria or hematuria. MUSCULOSKELETAL: No weakness reported. SKIN: Denies any new rashes or lesions, jaundice or pallor. PSYCHIATRIC: History of bipolar depression. NEUROLOGY: Denies headache, denies any new focal deficits. EARS/NOSE/THROAT: No recent hearing change, congestion, nasal discharge or sore throat. EYES: No pain in eyes, discharge or change in vision. GASTROINTESTINAL: As per HPI. Past Medical History Past Medical History: Chest Pain / Angina, Diabetes Mellitus, Hyperlipidemia, Hypertension, Myocardial Infarction ([place]) Additional Past Medical History / Comment(s): Rare migraines, IDDM type II, neuropathy bilateral feet.past uti,bipolar depression Last Myocardial Infarction Date:: 2014 History of Any Multi-Drug Resistant Organisms: MRSA Year Discovered:: 2013/MRSA MDRO Source:: abdomen Past Surgical History: Cholecystectomy, Heart Catheterization, Tubal Ligation Additional Past Surgical History / Comment(s): Lorenzo eye sx as child to correct lazy eye, Past Anesthesia/Blood Transfusion Reactions: Postoperative Nausea & Vomiting (PONV) Past Psychological History: Bipolar, Depression Additional Psychological History / Comment(s): Pt resides with her fiancee. She stated she is able to drive but has no vehicle. She gets to appointments thru her insurance company or by bus. She receives psychiatric care thru [facility]. She states she has had fleeting thoughts of suicide regularly for years but stated "i will never act on them". Smoking Status: Current every day smoker Past Alcohol Use History: Rare Additional Past Alcohol Use History / Comment(s): Pt started smoking in 1982 and is currently a half pack a day smoker. Past Drug Use History: None Reported, Marijuana Additional Drug Use History / Comment(s): Pt states she smokes marijuana most days - Past Family History Father Additional Family Medical History / Comment(s): Father had hypoglcemia, bipolar depression. He of an aortic aneurysm rupture in his 70's Mother Family Medical History: Cancer Additional Family Medical History / Comment(s): Mother of lung cancer that metastasized to her brain when she was in her 30's. Medications and Allergies Home Medications Medication Instructions Recorded Confirmed Type Aspirin [Adult Low Dose Aspirin EC] 81 mg PO DAILY 06/04/19 07/30/19 History Atorvastatin [Lipitor] 40 mg PO DAILY 06/04/19 07/30/19 History Ertugliflozin Pidolate [Steglatro] 15 mg PO DAILY 06/04/19 07/30/19 History Metoprolol Succinate [Toprol XL] 25 mg PO DAILY 06/04/19 07/30/19 History Omeprazole [PriLOSEC] 20 mg PO AC-BRKFST 06/04/19 07/30/19 History Albuterol Inhaler (Bulk) [Ventolin 2 puff INHALATION RT-Q6H PRN 07/30/19 0 History Hfa Inhaler (Bulk)] Fluticasone/Salmeterol [Airduo 1 puff INHALATION RT-BID 07/30/19 07/30/19 History Respiclick 113-14 Mcg] Lisinopril 20 mg PO BID 07/30/19 07/30/19 History Pioglitazone [Actos] 15 mg PO DAILY 07/30/19 07/30/19 History metFORMIN HCL 1,000 mg PO BID 07/30/19 07/30/19 History Insulin Glargine,Hum.rec.anlog 22 unit SQ HS #0 08/01/19 07/30/19 Rx [Basaglar Kwtainapen U-100] Magnesium Oxide [Mag-Ox] 400 mg PO TID #14 tab 08/01/19 Rx Nicotine 21Mg/24Hr Patch [Habitrol] 1 patch TRANSDERM DAILY #14 patch 08/01/19 Rx Allergies Allergy/AdvReac Type Severity Reaction Status Date / Time sucralose AdvReac Intermediate Nausea & Verified 07/30/19 11:50 [From Splenda (sucralose)] Vomiting & Diarrhea Physical Exam Vitals: Vital Signs Temp Pulse Resp BP BP Pulse Ox 08/01/19 15:24 71 16 123/73 99 08/01/19 14:14 92 115/76 08/01/19 12:00 98.1 F 88 16 113/64 100 08/01/19 08:00 16 08/01/19 07:55 80 16 130/77 98 08/01/19 04:00 98.7 F 81 18 155/83 100 08/01/19 00:00 98.1 F 52 L 18 171/79 99 07/31/19 20:00 97.8 F 83 18 130/86 100 Intake and Output 08/01/19 08/01/19 08/01/19 06:59 14:59 22:59 Intake Total 150 540 Output Total 400 Balance 150 140 Intake: Oral 150 540 Output: Urine 400 Other: Voiding Method Toilet Toilet # Voids 2 2 Weight 75.6 kg 75.6 kg On physical examination, patient appears comfortable in no apparent distress. HEAD: Normocephalic, atraumatic. EYES: No scleral icterus. No conjunctival injection. MOUTH: No lesions, tongue midline. NECK: Trachea midline, no gross abnormalities. CHEST: Clear to auscultation with no wheezing or rhonchi appreciated. HEART: Regular rate and rhythm. ABDOMEN: Soft, obese. Bowel sounds are positive. No organomegaly. No guarding or rigidity. EXTREMITIES: No pedal edema. SKIN: No rashes, no jaundice. NEUROLOGIC: Alert and oriented x3. No focal deficits. Results CBC & Chem 7: 07/30/19 09:40 08/01/19 08:09 Labs: Abnormal Lab Results - Last 24 Hours (Table) 07/31/19 08/01/19 08/01/19 Range/Units 19:59 06:13 08:09 Sodium 133 L (137-145) mmol/L BUN 6 L (7-17) mg/dL Creatinine 0.39 L (0.52-1.04) mg/dL Glucose 165 H (74-99) mg/dL POC Glucose (mg/dL) 130 H 160 H (75-99) mg/dL Calcium 8.1 L (8.4-10.2) mg/dL Magnesium 1.5 L (1.6-2.3) mg/dL Total Protein 5.5 L (6.3-8.2) g/dL Albumin 2.8 L (3.5-5.0) g/dL 08/01/19 Range/Units 11:41 Sodium (137-145) mmol/L BUN (7-17) mg/dL Creatinine (0.52-1.04) mg/dL Glucose (74-99) mg/dL POC Glucose (mg/dL) 125 H (75-99) mg/dL Calcium (8.4-10.2) mg/dL Magnesium (1.6-2.3) mg/dL Total Protein (6.3-8.2) g/dL Albumin (3.5-5.0) g/dL CT scan - chest: report reviewed (CT angiography negative for pulmonary embolism.) Assessment and Plan (1) Nausea & vomiting Narrative/Plan: 49-year-old female with multiple medical comorbidities including daily marijuana use who has a long-standing history of frequent episodes of nausea and vomiting occurring since November 2018. She reports extensive GI evaluation and reports she was. Further studies done in June 2019 however this was postponed due to the current appropriate of the novel mcqueen virus. Patient reports no improvement with Reglan and Zofran in the past. Unclear etiology of symptoms, suspicion is for marijuana hyperemesis syndrome, cannot rule out intractable JUSTIN D in the setting of hiatal hernia, gastroparesis or other etiology. Current Visit: Yes Status: Acute Code(s): R11.2 - NAUSEA WITH VOMITING, UNSPECIFIED SNOMED Code(s): 08520501 (2) Hiatal hernia Current Visit: Yes Status: Acute Code(s): K44.9 - DIAPHRAGMATIC HERNIA WITHOUT OBSTRUCTION OR GANGRENE SNOMED Code(s): 56104526 Plan: Supportive care Dietary recommendations made to the patient including low fiber, low residual diet Okay for diet as tolerated Protonix increased to twice daily Tigan added as needed for breakthrough nausea Extensive discussion with the patient with recommendations for complete cessation of marijuana use Continue follow-up with gastroenterology for which she already has established care after discharge No plan for endoscopy at this time Thank you for allowing us to participate in the care of the patient
--- NOTE | 2019-08-01 18:53 | P.DS ---
Providers Date of admission: 08/01/19 13:54 Expected date of discharge: 08/01/19 Attending physician: Dileep Riddle Consults: 07/31/19 13:55 Consult Physician Urgent Consulting Provider: Kelley Hackett Consult Reason/Comments: chest pain Do you want consulting provider notified?: Yes 08/01/19 10:37 Consult Physician Routine Consulting Provider: Alfa Vega Consult Reason/Comments: recurrent vomiting Do you want consulting provider notified?: Yes [facility] Course: Chief Complaint: Chest pain History of presenting complaint: This is a pleasant 49-year-old patient of Dr. Valencia. Chronic stable medical conditions include hypertension, hyperlipidemia, peripheral neuropathy, bipolar depression. Patient for last few months been having persistent nausea vomiting. Has been worked out of Dr. Curran to [facility] system. Patient did have an EGD that was unremarkable with hiatal hernia. She supposed to have a gastric emptying study. Patient continues to smoke. She is awaiting further studies and possible surgical intervention for MISSY hernia. Patient has continued to smoke. This morning around 5:00 she developed a pressure in the lower sternal area. [employer]. Tobacco nitroglycerin with some help. Neck: Normal. No dizziness no lightheadedness. No fever no chills. Patient has persistent nausea or vomiting going on for quite some time intermittently felt to be related to her hiatal hernia. Admitted for cardiac workup. Patient is continued to smoke Admitted with chest pain. Troponins were negative. Dobutamine stress echocardiogram was negative. Patient seen by GI Dr. Garcia. Patient told to follow with her own gastroneurologist at home. Her workup is already in place. Today-no further episode. Breathing stable. No chest pain. Did tolerate her diet. Discussed with Dr. Garcia. Patient to follow-up with her on GI physician. Also discussed with the patient. Stress test was negative. Discussion and discharge planning more than 35 minutes Consultation: Dr. Garcia from GI Dr. Vogel from cardiology Physical examination: VITAL SIGNS: 98.1, 88, 16, 113/64, 100% on room air GENERAL: Sitting up, comfortable EYES: Pupils equal. Conjunctiva normal. HEENT: External appearance of nose and ears normal, oral cavity normal. NECK: JVD not raised; masses not palpable. HEART: First and second heart sounds are normal; no edema. LUNGS: Respiratory rate increased, decreased breath sounds. ABDOMEN: Soft, nontender, liver spleen not palpable, no masses palpable. PSYCH: Alert and oriented x3; mood and affect slightly anxious INVESTIGATIONS, reviewed in the clinical context: White count 6.8 hemoglobin 13.5 platelets 213 percussion 3.8 creatinine 0.55 glucose 295 Troponin I less than 0.012 EKG tracing personally reviewed by me-sinus rhythm Chest CTA negative for PE Chest x-ray film personally reviewed by me-no obvious infiltrates Dobutamine stress echocardiogram-negative for ischemia Assessment: -Anterior chest wall pain, possibly musculoskeletal -Diabetes mellitus type 2, chronically on insulin, uncontrolled with hyperglycemia -Essential hypertension -Hyperlipidemia -Diabetic peripheral neuropathy -Bipolar disorder -COPD current smoker, -Intermittent nausea vomiting-outpatient workup in place Disposition: Home Patient Condition at Discharge: Stable Plan - Discharge Summary Discharge Rx Participant: Yes New Discharge Prescriptions: New Nicotine 21Mg/24Hr Patch [Habitrol] 1 patch TRANSDERM DAILY #14 patch Magnesium Oxide [Mag-Ox] 400 mg PO TID #14 tab Continue Omeprazole [PriLOSEC] 20 mg PO AC-BRKFST Metoprolol Succinate [Toprol XL] 25 mg PO DAILY Ertugliflozin Pidolate [Steglatro] 15 mg PO DAILY Atorvastatin [Lipitor] 40 mg PO DAILY Aspirin [Adult Low Dose Aspirin EC] 81 mg PO DAILY Albuterol Inhaler (Bulk) [Ventolin Hfa Inhaler (Bulk)] 2 puff INHALATION RT- Q6H PRN PRN Reason: Wheezing Fluticasone/Salmeterol [Airduo Respiclick 113-14 Mcg] 1 puff INHALATION RT- BID Lisinopril 20 mg PO BID metFORMIN HCL 1,000 mg PO BID Pioglitazone [Actos] 15 mg PO DAILY Changed Insulin Glargine,Hum.rec.anlog [Maryaglwilmer Barron U-100] 22 unit SQ HS #0 Discharge Medication List Aspirin [Adult Low Dose Aspirin EC] 81 mg PO DAILY 06/04/19 [History] Atorvastatin [Lipitor] 40 mg PO DAILY 06/04/19 [History] Ertugliflozin Pidolate [Steglatro] 15 mg PO DAILY 06/04/19 [History] Metoprolol Succinate [Toprol XL] 25 mg PO DAILY 06/04/19 [History] Omeprazole [PriLOSEC] 20 mg PO AC-BRKFST 06/04/19 [History] Albuterol Inhaler (Bulk) [Ventolin Hfa Inhaler (Bulk)] 2 puff INHALATION RT-Q6H PRN 07/30/19 [History] Fluticasone/Salmeterol [Airduo Respiclick 113-14 Mcg] 1 puff INHALATION RT-BID 07/30/19 [History] Lisinopril 20 mg PO BID 07/30/19 [History] Pioglitazone [Actos] 15 mg PO DAILY 07/30/19 [History] metFORMIN HCL 1,000 mg PO BID 07/30/19 [History] Insulin Glargine,Hum.rec.anlog [Basaglar Kwikpen U-100] 22 unit SQ HS #0 08/01/19 [Rx] Magnesium Oxide [Mag-Ox] 400 mg PO TID #14 tab 08/01/19 [Rx] Nicotine 21Mg/24Hr Patch [Habitrol] 1 patch TRANSDERM DAILY #14 patch 08/01/19 [Rx] Follow up Appointment(s)/Referral(s): Own-translation directorDr. [Other] - 1 Week (make appt ) Senthil Valencia MD [Primary Care Provider] - 1-2 days (make appt ) Patient Instructions/Handouts: Hiatal Hernia (DC), Cardiac Stress Test (DC) Discharge Disposition: HOME SELF-CARE
[2019-08-01] MEDS ORDERED: TRIMETHOBENZAMIDE 300 MG CAP PO SCH (22:00)
== END 2019-08-01 18:31 | disposition home or self-care (01) | DRG 313 ==
LOC: EC 09:07 → 3SCARD 12:21 → OBSVTOIN 08-01 13:54
PROVIDERS: ADMIT Hospitalist; ATTEND Hospitalist
DX: R07.89 Other chest pain (principal); E11.65 Type 2 diabetes mellitus with hyperglycemia; E11.42 Type 2 diabetes mellitus with diabetic polyneuropathy; E83.42 Hypomagnesemia; E78.5 Hyperlipidemia, unspecified; F17.210 Nicotine dependence, cigarettes, uncomplicated; I10 Essential (primary) hypertension; I49.3 Ventricular premature depolarization; K44.9 Diaphragmatic hernia without obstruction or gangrene; F12.90 Cannabis use, unspecified, uncomplicated; F31.9 Bipolar disorder, unspecified; I25.10 Atherosclerotic heart disease of native coronary artery without angina pectoris; J44.9 Chronic obstructive pulmonary disease, unspecified; I25.2 Old myocardial infarction; Z79.82 Long term (current) use of aspirin; Z79.4 Long term (current) use of insulin; Z79.899 Other long term (current) drug therapy; Z80.1 Family history of malignant neoplasm of trachea, bronchus and lung; Z87.440 Personal history of urinary (tract) infections; Z86.14 Personal history of Methicillin resistant Staphylococcus aureus infection; Z90.49 Acquired absence of other specified parts of digestive tract; Z98.890 Other specified postprocedural states; Z98.51 Tubal ligation status; Z81.8 Family history of other mental and behavioral disorders; Z88.8 Allergy status to other drugs, medicaments and biological substances
CPT/HCPCS: 36415; 71046; 71275; 80053; 80061; 83690; 83735; 83880; 84484; 85025; 85379; 85610; 85730; 93005; 93351; 94640; 94760; 96361; 96365; 96366; 96375; 99285

== ENCOUNTER 2020-04-12 14:22 | Inpatient (IN) | payer OTHER ==
[2020-04-12] MEDS ORDERED: ONDANSETRON 4 MG/2 ML VIAL IVP STA (14:47)
[2020-04-12] MEDS ORDERED: SODIUM CHLORIDE 0.9% 1,000 ML IV STA (14:47)
[2020-04-12] MEDS ORDERED: MORPHINE SULFATE 4 MG/ML SYRINGE IV STA (14:47)
--- NOTE | 2020-04-12 14:59 | ED ---
General Adult HPI - General Chief complaint: Nausea/Vomiting/Diarrhea Stated complaint: Vomiting Time Seen by Provider: 04/12/20 14:33 Source: patient, RN notes reviewed, old records reviewed Mode of arrival: ambulatory Limitations: no limitations - History of Present Illness Initial comments: 50-year-old female presented for evaluation of nausea vomiting. Patient has previous history of recurrent nausea vomiting and is scheduled for ERCP as well as RSA at [facility]. She's has history of diabetes. She denies significant abdominal pain. She states she is passing gas and has had some loose stool as well. She is vomiting predominantly bile. No fever. - Related Data Home Medications Medication Instructions Recorded Confirmed Aspirin [Adult Low Dose Aspirin EC] 81 mg PO DAILY 06/04/19 07/30/19 Atorvastatin [Lipitor] 40 mg PO DAILY 06/04/19 07/30/19 Ertugliflozin Pidolate [Steglatro] 15 mg PO DAILY 06/04/19 07/30/19 Metoprolol Succinate [Toprol XL] 25 mg PO DAILY 06/04/19 07/30/19 Omeprazole [PriLOSEC] 20 mg PO AC-BRKFST 06/04/19 07/30/19 Albuterol Inhaler (Mhu) [Ventolin 2 puff INHALATION RT-Q6H PRN 07/30/19 07/30/19 Hfa Inhaler (Mhu)] Fluticasone/Salmeterol [Airduo 1 puff INHALATION RT-BID 07/30/19 07/30/19 Respiclick 113-14 Mcg] Pioglitazone [Actos] 15 mg PO DAILY 07/30/19 07/30/19 lisinopriL 20 mg PO BID 07/30/19 07/30/19 metFORMIN HCL 1,000 mg PO BID 07/30/19 07/30/19 Previous Rx's Medication Instructions Recorded Insulin Glargine,Hum.rec.anlog 22 unit SQ HS #0 08/01/19 [Basaglar Kwikpen U-100] Magnesium Oxide [Mag-Ox] 400 mg PO TID #14 tab 08/01/19 Nicotine 21Mg/24Hr Patch [Habitrol] 1 patch TRANSDERM DAILY #14 patch 08/01/19 Allergies Allergy/AdvReac Type Severity Reaction Status Date / Time sucralose AdvReac Intermediate Nausea & Verified 04/12/20 14:33 [From Splenda (sucralose)] Vomiting & Diarrhea Review of Systems ROS Statement: Those systems with pertinent positive or pertinent negative responses have been documented in the HPI. ROS Other: All systems not noted in ROS Statement are negative. Past Medical History Past Medical History: Chest Pain / Angina, Diabetes Mellitus, Hyperlipidemia, Hypertension, Myocardial Infarction ([place]) Additional Past Medical History / Comment(s): Rare migraines, IDDM type II, neuropathy bilateral feet.past uti,bipolar depression Last Myocardial Infarction Date:: 2014 History of Any Multi-Drug Resistant Organisms: MRSA Date of last positivie culture/infection: 2013/MRSA MDRO Source:: abdomen Past Surgical History: Cholecystectomy, Heart Catheterization, Tubal Ligation Additional Past Surgical History / Comment(s): Lorenzo eye sx as child to correct lazy eye, Past Anesthesia/Blood Transfusion Reactions: Postoperative Nausea & Vomiting (PONV) Past Psychological History: Bipolar, Depression Smoking Status: Current every day smoker Past Alcohol Use History: Rare Past Drug Use History: None Reported, Marijuana - Past Family History Father Additional Family Medical History / Comment(s): Father had hypoglcemia, bipolar depression. He of an aortic aneurysm rupture in his 70's Mother Family Medical History: Cancer Additional Family Medical History / Comment(s): Mother of lung cancer that metastasized to her brain when she was in her 30's. General Exam Limitations: no limitations General appearance: alert, in no apparent distress Head exam: Present: atraumatic, normocephalic Eye exam: Present: normal appearance, PERRL ENT exam: Present: mucous membranes dry Neck exam: Present: normal inspection. Absent: tenderness, meningismus Respiratory exam: Present: normal lung sounds bilaterally. Absent: respiratory distress, wheezes Cardiovascular Exam: Present: regular rate, normal rhythm GI/Abdominal exam: Present: soft, tenderness (Minimal epigastric tenderness). Absent: distended Extremities exam: Present: normal inspection, normal capillary refill. Absent: pedal edema Neurological exam: Present: alert, oriented X3, CN II-XII intact. Absent: motor sensory deficit Psychiatric exam: Present: normal affect, normal mood Skin exam: Present: warm, dry Course Vital Signs 04/12/20 04/12/20 14:29 16:03 Temperature 98.9 F Pulse Rate 100 76 Respiratory 20 18 Rate Blood Pressure 166/100 189/93 O2 Sat by Pulse 98 96 Oximetry EKG Findings - EKG Comments: EKG Findings:: EKG sinus rhythm with PAC, no ST segment elevation, rate is 80, NH interval 170, QRS duration 92, QTC 454 Medical Decision Making - Medical Decision Making 50-year-old female presenting for nausea vomiting, dehydration. Workup initiated, showing normal white blood cell count, hemoglobin is high likely secondary to hemoconcentration. X-rays negative for obstruction or intrap eritoneal free air. Patient has a CMP which is showing hyponatremia and hyperglycemia, no lactic acidosis, normal anion gap, acetone negative. Urinalysis has been ordered and is pending, patient has been unable to urinate while in the emergency department. She does appear dehydrated significantly on exam. She will be admitted, case has been discussed with Dr. Carpenter who will admit, gastroenterology has been placed on consult. - Lab Data Result diagrams: 04/12/20 14:58 04/12/20 14:58 Lab Results 04/12/20 04/12/20 04/12/20 Range/Units 14:58 14:58 14:58 WBC 10.6 (3.8-10.6) k/uL RBC 5.28 (3.80-5.40) m/uL Hgb 16.3 H (11.4-16.0) gm/dL Hct 46.9 H (34.0-46.0) % MCV 88.8 (80.0-100.0) fL MCH 30.9 (25.0-35.0) pg MCHC 34.8 (31.0-37.0) g/dL RDW 11.6 (11.5-15.5) % Plt Count 217 (150-450) k/uL MPV 7.3 Neutrophils % 78 % Lymphocytes % 13 % Monocytes % 7 % Eosinophils % 0 % Basophils % 1 % Neutrophils # 8.3 H (1.3-7.7) k/uL Lymphocytes # 1.4 (1.0-4.8) k/uL Monocytes # 0.8 (0-1.0) k/uL Eosinophils # 0.0 (0-0.7) k/uL Basophils # 0.1 (0-0.2) k/uL PT 10.9 (9.0-12.0) sec INR 1.1 (<1.2) APTT 22.7 (22.0-30.0) sec Sodium 132 L (137-145) mmol/L Potassium 3.6 (3.5-5.1) mmol/L Chloride 91 L (98-107) mmol/L Carbon Dioxide 30 (22-30) mmol/L Anion Gap 11 mmol/L BUN 22 H (7-17) mg/dL Creatinine 0.65 (0.52-1.04) mg/dL Est GFR (CKD-EPI)AfAm >90 (>60 ml/min/1.73 sqM) Est GFR (CKD-EPI)NonAf >90 (>60 ml/min/1.73 sqM) Glucose 362 H (74-99) mg/dL Plasma Lactic Acid Pro (0.7-2.0) mmol/L Calcium 10.2 (8.4-10.2) mg/dL Total Bilirubin 1.1 (0.2-1.3) mg/dL AST 28 (14-36) U/L ALT 24 (4-34) U/L Alkaline Phosphatase 67 (38-126) U/L Troponin I (0.000-0.034) ng/mL Total Protein 8.4 H (6.3-8.2) g/dL Albumin 4.9 (3.5-5.0) g/dL Amylase 61 (30-110) U/L Lipase 96 (23-300) U/L Acetone, Qual Negative (Negative) 04/12/20 04/12/20 Range/Units 14:58 14:58 WBC (3.8-10.6) k/uL RBC (3.80-5.40) m/uL Hgb (11.4-16.0) gm/dL Hct (34.0-46.0) % MCV (80.0-100.0) fL MCH (25.0-35.0) pg MCHC (31.0-37.0) g/dL RDW (11.5-15.5) % Plt Count (150-450) k/uL MPV Neutrophils % % Lymphocytes % % Monocytes % % Eosinophils % % Basophils % % Neutrophils # (1.3-7.7) k/uL Lymphocytes # (1.0-4.8) k/uL Monocytes # (0-1.0) k/uL Eosinophils # (0-0.7) k/uL Basophils # (0-0.2) k/uL PT (9.0-12.0) sec INR (<1.2) APTT (22.0-30.0) sec Sodium (137-145) mmol/L Potassium (3.5-5.1) mmol/L Chloride (98-107) mmol/L Carbon Dioxide (22-30) mmol/L Anion Gap mmol/L BUN (7-17) mg/dL Creatinine (0.52-1.04) mg/dL Est GFR (CKD-EPI)AfAm (>60 ml/min/1.73 sqM) Est GFR (CKD-EPI)NonAf (>60 ml/min/1.73 sqM) Glucose (74-99) mg/dL Plasma Lactic Acid Pro 2.0 (0.7-2.0) mmol/L Calcium (8.4-10.2) mg/dL Total Bilirubin (0.2-1.3) mg/dL AST (14-36) U/L ALT (4-34) U/L Alkaline Phosphatase (38-126) U/L Troponin I <0.012 (0.000-0.034) ng/mL Total Protein (6.3-8.2) g/dL Albumin (3.5-5.0) g/dL Amylase (30-110) U/L Lipase (23-300) U/L Acetone, Qual (Negative) Disposition Clinical Impression: Dehydration, Nausea & vomiting, Hyperglycemia Disposition: ADMITTED IP TO THIS [facility] Condition: Stable Is patient prescribed a controlled substance at d/c from ED?: No Referrals: Senthil Valencia MD [Primary Care Provider] - 1-2 days Decision to Admit Reason: Admit from EC Decision Date: 04/12/20 Decision Time: 17:00
[2020-04-12 15:13] LABS: Basophils # (A) 0.1 k/uL (0-0.2); Basophils % (A) 1 %; Eosinophils % (A) 0 %; HCT 46.9 % (34.0-46.0); HGB 16.3 gm/dL (11.4-16.0); Lymphocytes # (A) 1.4 k/uL (1.0-4.8); Lymphocytes % (A) 13 %; MCH 30.9 pg (25.0-35.0); MCHC 34.8 g/dL (31.0-37.0); MCV 88.8 fL (80.0-100.0); Mean Platelet Volume 7.3; Monocytes # (A) 0.8 k/uL (0-1.0); Monocytes % (A) 7 %; Neutrophils # (A) 8.3 k/uL (1.3-7.7); Neutrophils % (A) 78 %; Platelet Count 217 k/uL (150-450); RBC 5.28 m/uL (3.80-5.40); RDW 11.6 % (11.5-15.5); WBC 10.6 k/uL (3.8-10.6)
--- NOTE | 2020-04-12 15:17 | XR ---
EXAMINATION TYPE: XR KUB DATE OF EXAM: 04/12/2020 COMPARISON: 04/16/2019 INDICATION: Vomiting TECHNIQUE: Single view abdomen upright view FINDINGS: 1 specific bowel gas is present. No suspicious air-fluid levels or differential air-fluid levels are present. No free air is evident. Psoas margins are normal. No organomegaly is present. Surgical clips are in the right upper quadrant within the pelvis. IMPRESSION: 1. Nonspecific bowel gas pattern.
[2020-04-12 15:30] LABS: ALT 24 U/L (4-34); AST 28 U/L (14-36); African American GFR (CKD) >90 (>60 ml/min/1.73 sqM); Albumin 4.9 g/dL (3.5-5.0); Alkaline Phosphatase 67 U/L (38-126); Amylase 61 U/L (30-110); Anion Gap 11 mmol/L; Blood Urea Nitrogen 22 mg/dL (7-17); Calcium 10.2 mg/dL (8.4-10.2); Carbon Dioxide 30 mmol/L (22-30); Chloride 91 mmol/L (98-107); Glucose 362 mg/dL (74-99); Lipase 96 U/L (23-300); Non-African American GFR(CKD) >90 (>60 ml/min/1.73 sqM); Potassium 3.6 mmol/L (3.5-5.1); Sodium 132 mmol/L (137-145); Total Bilirubin 1.1 mg/dL (0.2-1.3); Total Protein 8.4 g/dL (6.3-8.2)
[2020-04-12 15:33] LABS: INR 1.1 (<1.2); Partial Thromboplastin Time 22.7 sec (22.0-30.0); Prothrombin Time 10.9 sec (9.0-12.0)
[2020-04-12] MEDS ORDERED: NALOXONE 0.4 MG/ML 1 ML VIAL IV PRN (16:53)
[2020-04-12] MEDS: SODIUM CHLORIDE 0.9% 1,000 ML IV SCH (19:49)
[2020-04-12 21:31] LABS: Glucose,Whole Blood 266 mg/dL (75-99)
[2020-04-12] MEDS: metFORMIN 500 MG TAB PO SCH (23:35)
[2020-04-12] MEDS: LOSARTAN 50 MG TAB PO SCH (23:35)
[2020-04-12] MEDS: ATORVASTATIN 40 MG TAB PO SCH (23:35)
[2020-04-12] MEDS: ONDANSETRON 4 MG/2 ML VIAL IVP PRN (23:35)
[2020-04-13] MEDS: SODIUM CHLORIDE 0.9% 1,000 ML IV SCH ×3 (01:55→17:46)
[2020-04-13 02:58] LABS: Amorphous Sediment,Urine Rare /hpf; Appearance,Urine Cloudy (Clear); Bilirubin,Urine Negative (Negative); Blood,Urine Negative (Negative); Color,Urine Light Yellow; Glucose,Urine (UA) 4+ (Negative); Leukocyte Esterase,Urine Negative (Negative); Mucus,Urine Rare /hpf; Nitrite,Urine Negative (Negative); Protein,Urine Negative (Negative); RBC,Urine 1 /hpf (0-5); Specific Gravity,Urine 1.015 (1.001-1.035); Urobilinogen,Urine <2.0 mg/dL (<2.0); WBC,Urine 1 /hpf (0-5)
[2020-04-13 03:22] LABS: Ketones,Urine 2+ (Negative)
[2020-04-13] MEDS: hydrALAZINE HCL 20 MG/ML 1 ML VIAL IVP PRN ×2 (03:50→15:19)
[2020-04-13 05:59] LABS: Basophils % (A) 0 %; Eosinophils % (A) 0 %; HCT 46.2 % (34.0-46.0); HGB 15.7 gm/dL (11.4-16.0); Lymphocytes # (A) 1.3 k/uL (1.0-4.8); Lymphocytes % (A) 16 %; MCH 30.8 pg (25.0-35.0); MCHC 34.1 g/dL (31.0-37.0); MCV 90.5 fL (80.0-100.0); Monocytes # (A) 0.5 k/uL (0-1.0); Monocytes % (A) 6 %; Neutrophils # (A) 6.4 k/uL (1.3-7.7); Neutrophils % (A) 76 %; Platelet Count 177 k/uL (150-450); RBC 5.11 m/uL (3.80-5.40); RDW 11.6 % (11.5-15.5); WBC 8.4 k/uL (3.8-10.6)
[2020-04-13 06:11] LABS: ALT 22 U/L (4-34); AST 31 U/L (14-36); African American GFR (CKD) >90 (>60 ml/min/1.73 sqM); Albumin 4.1 g/dL (3.5-5.0); Alkaline Phosphatase 56 U/L (38-126); Anion Gap 5 mmol/L; Blood Urea Nitrogen 15 mg/dL (7-17); Calcium 9.1 mg/dL (8.4-10.2); Carbon Dioxide 30 mmol/L (22-30); Chloride 98 mmol/L (98-107); Glucose 257 mg/dL (74-99); Magnesium 1.5 mg/dL (1.6-2.3); Non-African American GFR(CKD) >90 (>60 ml/min/1.73 sqM); Potassium 3.6 mmol/L (3.5-5.1); Sodium 133 mmol/L (137-145); Total Protein 7.2 g/dL (6.3-8.2)
[2020-04-13 06:40] LABS: Glucose,Whole Blood 253 mg/dL (75-99)
[2020-04-13] MEDS: MORPHINE SULFATE 4 MG/ML SYRINGE IV PRN ×2 (08:24→21:38)
[2020-04-13] MEDS: metFORMIN 500 MG TAB PO SCH ×2 (08:24→21:30)
[2020-04-13] MEDS: ONDANSETRON 4 MG/2 ML VIAL IVP PRN ×2 (08:24→16:50)
[2020-04-13] MEDS: ASPIRIN 81 MG PO SCH (08:24)
[2020-04-13] MEDS: LOSARTAN 50 MG TAB PO SCH (08:24)
[2020-04-13 11:20] LABS: Glucose,Whole Blood 218 mg/dL (75-99)
[2020-04-13 13:38] LABS: Hemoglobin A1C 8.8 % (4.0-6.0)
[2020-04-13] MEDS ORDERED: MAGNESIUM SULFATE-D5W PMX 1 GM in DEXTROSE/WATER 1 100ML.BAG IVPB ONE (15:15)
--- NOTE | 2020-04-13 15:30 | P.HPIM ---
History of Present Illness H&P Date: 04/13/20 Chief Complaint: Ongoing nausea and vomiting This is a 50-year-old female who was seen evaluated examined, patient came into the hospital with ongoing nausea vomiting she has a history of ongoing process has been scheduled for ERCP at [facility], she also has problems associated diabetes while in the hospital she continued to have elevated blood pressure and GI symptoms, the GI been consulted also cardiovascular services are being consulted as well, her past medical history significant for diabetes mellitus dyslipidemia hypertension hypertensive cardiovascular disease history of asthma Review of Systems All systems: negative Past Medical History Past Medical History: Chest Pain / Angina, Diabetes Mellitus, Hyperlipidemia, Hypertension, Myocardial Infarction ([place]) Additional Past Medical History / Comment(s): Rare migraines, IDDM type II, neuropathy bilateral feet.past uti,bipolar depression Last Myocardial Infarction Date:: 2014 History of Any Multi-Drug Resistant Organisms: MRSA Date of last positivie culture/infection: 2013/MRSA MDRO Source:: abdomen Past Surgical History: Cholecystectomy, Heart Catheterization, Tubal Ligation Additional Past Surgical History / Comment(s): Lorenzo eye sx as child to correct lazy eye, Past Anesthesia/Blood Transfusion Reactions: Postoperative Nausea & Vomiting (PONV) Past Psychological History: Bipolar, Depression Additional Psychological History / Comment(s): Pt resides with her fiaydee. She stated she is able to drive but has no vehicle. She gets to appointments thru her insurance company or by bus. She receives psychiatric care thru [facility]. She states she has had fleeting thoughts of suicide regularly for years but stated "i will never act on them". Smoking Status: Current every day smoker Past Alcohol Use History: Rare Additional Past Alcohol Use History / Comment(s): Pt started smoking in 1982 and is currently a half pack a day smoker. Past Drug Use History: None Reported, Marijuana Additional Drug Use History / Comment(s): Pt states she smokes marijuana most days - Past Family History Father Additional Family Medical History / Comment(s): Father had hypoglcemia, bipolar depression. He of an aortic aneurysm rupture in his 70's Mother Family Medical History: Cancer Additional Family Medical History / Comment(s): Mother of lung cancer that metastasized to her brain when she was in her 30's. Medications and Allergies Home Medications Medication Instructions Recorded Confirmed Type Aspirin [Adult Low Dose Aspirin EC] 81 mg PO DAILY 06/04/19 04/12/20 History Atorvastatin [Lipitor] 40 mg PO HS 06/04/19 04/12/20 History metFORMIN HCL 1,000 mg PO BID 07/30/19 04/12/20 History HYDROcodone/APAP 5-325MG [[place] 1 tab PO Q4-6H PRN 04/12/20 04/12/20 History 5-325] Allergies Allergy/AdvReac Type Severity Reaction Status Date / Time sucralose AdvReac Intermediate Nausea & Verified 04/12/20 17:08 [From Splenda (sucralose)] Vomiting & Diarrhea Physical Exam Vitals: Vital Signs Temp Pulse Pulse Resp BP BP Pulse Ox 04/13/20 14:17 96.5 F L 85 18 186/90 96 04/13/20 08:17 98.1 F 82 18 171/76 98 04/13/20 04:30 170/83 04/13/20 03:39 77 18 04/13/20 03:37 98.5 F 77 18 209/110 97 04/12/20 23:06 97.5 F L 90 18 167/87 98 04/12/20 21:32 97.4 F L 91 18 180/90 04/12/20 21:30 91 18 04/12/20 18:04 80 16 183/94 98 04/12/20 16:03 76 18 189/93 96 Intake and Output 04/13/20 04/13/20 04/13/20 06:59 14:59 22:59 Intake Total 240 Balance 240 Intake: Oral 240 Other: # Voids 1 1 # Bowel Movements 1 Weight 81.647 kg - Constitutional General appearance: cooperative, disheveled - EENT Eyes: PERRLA Ears: bilateral: normal - Neck Carotids: bilateral: upstroke normal Thyroid: bilateral: normal size - Respiratory Respiratory: bilateral: CTA - Cardiovascular Rhythm: regular Heart sounds: normal: S1, S2 - Gastrointestinal General gastrointestinal: normal bowel sounds, soft - Neurologic Neurologic: CNII-XII intact - Musculoskeletal Musculoskeletal: gait normal, generalized weakness, strength equal bilaterally - Psychiatric Psychiatric: A&O x's 3, appropriate affect, intact judgment & insight Results CBC & Chem 7: 04/13/20 05:36 04/13/20 05:36 Labs: Abnormal Lab Results - Last 24 Hours (Table) 1204/12/20 04/13/20 Range/Units 14:58 21:29 02:42 Hct (34.0-46.0) % Sodium 132 L (137-145) mmol/L Chloride 91 L (98-107) mmol/L BUN 22 H (7-17) mg/dL Creatinine (0.52-1.04) mg/dL Glucose 362 H (74-99) mg/dL POC Glucose (mg/dL) 266 H (75-99) mg/dL Hemoglobin A1c (4.0-6.0) % Magnesium (1.6-2.3) mg/dL Total Protein 8.4 H (6.3-8.2) g/dL Urine Appearance Cloudy H (Clear) Urine Glucose (UA) 4+ H (Negative) Urine Ketones 2+ H (Negative) Amorphous Sediment Rare H (None) /hpf Urine Mucus Rare H (None) /hpf 04/13/20 04/13/20 04/13/20 Range/Units 05:36 05:36 05:36 Hct 46.2 H (34.0-46.0) % Sodium 133 L (137-145) mmol/L Chloride (98-107) mmol/L BUN (7-17) mg/dL Creatinine 0.48 L (0.52-1.04) mg/dL Glucose 257 H (74-99) mg/dL POC Glucose (mg/dL) (75-99) mg/dL Hemoglobin A1c 8.8 H (4.0-6.0) % Magnesium 1.5 L (1.6-2.3) mg/dL Total Protein (6.3-8.2) g/dL Urine Appearance (Clear) Urine Glucose (UA) (Negative) Urine Ketones (Negative) Amorphous Sediment (None) /hpf Urine Mucus (None) /hpf 04/13/20 04/13/20 Range/Units 06:37 11:18 Hct (34.0-46.0) % Sodium (137-145) mmol/L Chloride (98-107) mmol/L BUN (7-17) mg/dL Creatinine (0.52-1.04) mg/dL Glucose (74-99) mg/dL POC Glucose (mg/dL) 253 H 218 H (75-99) mg/dL Hemoglobin A1c (4.0-6.0) % Magnesium (1.6-2.3) mg/dL Total Protein (6.3-8.2) g/dL Urine Appearance (Clear) Urine Glucose (UA) (Negative) Urine Ketones (Negative) Amorphous Sediment (None) /hpf Urine Mucus (None) /hpf Thrombosis Risk Factor Assmnt - Choose All That Apply Each Factor Represents 1 point: Age 41-60 years Other Risk Factors: No Other congenital or acquired thrombophilia - If yes, enter type in comment: No Thrombosis Risk Factor Assessment Total Risk Factor Score: 1 Thrombosis Risk Factor Assessment Level: Low Risk Assessment and Plan Assessment: Ongoing nausea vomiting Hypertensive urgency Uncontrolled diabetes Dehydration Status post cholecystectomy Mild hyponatremia Plan: Gentle rehydration Blood pressure control with hydralazine Resume home medications Consult GI and cardiovascular services Further recommendations pending plan of care as per clinical response of patient Time with Patient: Greater than 30
[2020-04-13] MEDS ORDERED: TRIMETHOBENZAMIDE 300 MG CAP PO SCH (16:30)
[2020-04-13 16:56] LABS: Glucose,Whole Blood 235 mg/dL (75-99)
[2020-04-13] MEDS: INSULIN ASPART (NovoLOG) 100 UNIT/ML VIAL SQ SCH ×2 (16:59→21:31)
--- NOTE | 2020-04-13 20:04 | P.CONS ---
History of Present Illness - Reason for Consult Consult date: 04/13/20 nausea and vomiting Requesting physician: Misael Carpenter - Chief Complaint nausea and vomiting - History of Present Illness 50-year-old female with medical history significant for hypertension, hyperlipidemia, peripheral neuropathy, bipolar depression and substance abuse with daily marijuana use who presented to the hospital due to concerns over nausea and vomiting. The patient has had multiple hospitalizations at different facilities in the area for similar complaints in the past. She has a reported history of hiatal hernia. She reports that she has been doing well over the past 6 months with no episodes of nausea and vomiting but that symptoms started 2 days prior to presentation. He reports multiple episodes of nonbloody emesis. She does not take any anti-emetics regularly at home. She does have a ERCP scheduled that [facility] in April for treatment of a pancreatic cyst. Laboratory evaluation on presentation significant for WBC 8.4, hemoglobin 15.7, platelet count 177,000 with amylase 61 and lipase 96, total bilirubin 1, alkaline phosphatase 56, AST 31 and ALP 22. She does report that she has chronic diarrhea baseline and that this has been present since her cholecystectomy. No change in bowel habits or blood per rectum reported. Review of Systems REVIEW OF SYSTEMS: CONSTITUTIONAL: Denies any fevers, chills, weight change or fatigue. CARDIOVASCULAR: Denies any chest pain, palpitations high or low blood pressures RESPIRATORY: Denies any shortness of breath, hemoptysis or cough. GENITOURINARY: No dysuria or hematuria. MUSCULOSKELETAL: No weakness reported. SKIN: Denies any new rashes or lesions, jaundice or pallor. PSYCHIATRIC: Denies any depression or anxiety, she does have a history of bipolar depression. NEUROLOGY: Denies headache, denies any new focal deficits. EARS/NOSE/THROAT: No recent hearing change, congestion, nasal discharge or sore throat. EYES: No pain in eyes, discharge or change in vision. GASTROINTESTINAL: As per HPI. Past Medical History Past Medical History: Chest Pain / Angina, Diabetes Mellitus, Hyperlipidemia, Hypertension, Myocardial Infarction (HI) Additional Past Medical History / Comment(s): Rare migraines, IDDM type II, neuropathy bilateral feet.past uti,bipolar depression Last Myocardial Infarction Date:: 2014 History of Any Multi-Drug Resistant Organisms: MRSA Year Discovered:: 2013/MRSA MDRO Source:: abdomen Past Surgical History: Cholecystectomy, Heart Catheterization, Tubal Ligation Additional Past Surgical History / Comment(s): Lorenzo eye sx as child to correct lazy eye, Past Anesthesia/Blood Transfusion Reactions: Postoperative Nausea & Vomiting (PONV) Past Psychological History: Bipolar, Depression Additional Psychological History / Comment(s): Pt resides with her tiffany. She stated she is able to drive but has no vehicle. She gets to appointments thru her insurance company or by bus. She receives psychiatric care thru [facility]. She states she has had fleeting thoughts of suicide regularly for years but stated "i will never act on them". Smoking Status: Current every day smoker Past Alcohol Use History: Rare Additional Past Alcohol Use History / Comment(s): Pt started smoking in 1982 and is currently a half pack a day smoker. Past Drug Use History: None Reported, Marijuana Additional Drug Use History / Comment(s): Pt states she smokes marijuana most days - Past Family History Father Additional Family Medical History / Comment(s): Father had hypoglcemia, bipolar depression. He of an aortic aneurysm rupture in his 70's Mother Family Medical History: Cancer Additional Family Medical History / Comment(s): Mother of lung cancer that metastasized to her brain when she was in her 30's. Medications and Allergies Home Medications Medication Instructions Recorded Confirmed Type Aspirin [Adult Low Dose Aspirin EC] 81 mg PO DAILY 06/04/19 04/12/20 History Atorvastatin [Lipitor] 40 mg PO HS 06/04/19 04/12/20 History metFORMIN HCL 1,000 mg PO BID 07/30/19 04/12/20 History HYDROcodone/APAP 5-325MG [[place] 1 tab PO Q4-6H PRN 04/12/20 04/12/20 History 5-325] Allergies Allergy/AdvReac Type Severity Reaction Status Date / Time sucralose AdvReac Intermediate Nausea & Verified 04/12/20 17:08 [From Splenda (sucralose)] Vomiting & Diarrhea Physical Exam Vitals: Vital Signs Temp Pulse Pulse Resp BP BP Pulse Ox 04/13/20 14:17 96.5 F L 85 18 186/90 96 04/13/20 08:17 98.1 F 82 18 171/76 98 04/13/20 04:30 170/83 04/13/20 03:39 77 18 04/13/20 03:37 98.5 F 77 18 209/110 97 04/12/20 23:06 97.5 F L 90 18 167/87 98 04/12/20 21:32 97.4 F L 91 18 180/90 04/12/20 21:30 91 18 04/12/20 18:04 80 16 183/94 98 04/12/20 16:03 76 18 189/93 96 Intake and Output 04/12/20 04/13/20 04/13/20 22:59 06:59 14:59 Intake Total 240 Balance 240 Intake: Oral 240 Other: # Voids 1 1 1 # Bowel Movements 1 Weight 81.647 kg On physical examination, patient appears comfortable in no apparent distress. HEAD: Normocephalic, atraumatic. EYES: No scleral icterus. No conjunctival injection. MOUTH: No lesions, tongue midline. NECK: Trachea midline, no gross abnormalities. CHEST: Clear to auscultation with no wheezing or rhonchi appreciated. HEART: Regular rate and rhythm. ABDOMEN: Soft, obeseand nontender. Bowel sounds are positive. No organomegaly. No guarding or rigidity. EXTREMITIES: No pedal edema. SKIN: No rashes, no jaundice. NEUROLOGIC: Alert and oriented x3. No focal deficits. Results CBC & Chem 7: 04/13/20 05:36 04/13/20 05:36 Labs: Abnormal Lab Results - Last 24 Hours (Table) 04/12/20 04/12/20 04/12/20 Range/Units 14:58 14:58 21:29 Hgb 16.3 H (11.4-16.0) gm/dL Hct 46.9 H (34.0-46.0) % Neutrophils # 8.3 H (1.3-7.7) k/uL Sodium 132 L (137-145) mmol/L Chloride 91 L (98-107) mmol/L BUN 22 H (7-17) mg/dL Creatinine (0.52-1.04) mg/dL Glucose 362 H (74-99) mg/dL POC Glucose (mg/dL) 266 H (75-99) mg/dL Hemoglobin A1c (4.0-6.0) % Magnesium (1.6-2.3) mg/dL Total Protein 8.4 H (6.3-8.2) g/dL Urine Appearance (Clear) Urine Glucose (UA) (Negative) Urine Ketones (Negative) Amorphous Sediment (None) /hpf Urine Mucus (None) /hpf 04/13/20 04/13/20 04/13/20 Range/Units 02:42 05:36 05:36 Hgb (11.4-16.0) gm/dL Hct 46.2 H (34.0-46.0) % Neutrophils # (1.3-7.7) k/uL Sodium 133 L (137-145) mmol/L Chloride (98-107) mmol/L BUN (7-17) mg/dL Creatinine 0.48 L (0.52-1.04) mg/dL Glucose 257 H (74-99) mg/dL POC Glucose (mg/dL) (75-99) mg/dL Hemoglobin A1c (4.0-6.0) % Magnesium 1.5 L (1.6-2.3) mg/dL Total Protein (6.3-8.2) g/dL Urine Appearance Cloudy H (Clear) Urine Glucose (UA) 4+ H (Negative) Urine Ketones 2+ H (Negative) Amorphous Sediment Rare H (None) /hpf Urine Mucus Rare H (None) /hpf 04/13/20 04/13/20 04/13/20 Range/Units 05:36 06:37 11:18 Hgb (11.4-16.0) gm/dL Hct (34.0-46.0) % Neutrophils # (1.3-7.7) k/uL Sodium (137-145) mmol/L Chloride (98-107) mmol/L BUN (7-17) mg/dL Creatinine (0.52-1.04) mg/dL Glucose (74-99) mg/dL POC Glucose (mg/dL) 253 H 218 H (75-99) mg/dL Hemoglobin A1c 8.8 H (4.0-6.0) % Magnesium (1.6-2.3) mg/dL Total Protein (6.3-8.2) g/dL Urine Appearance (Clear) Urine Glucose (UA) (Negative) Urine Ketones (Negative) Amorphous Sediment (None) /hpf Urine Mucus (None) /hpf Abdominal x-ray: report reviewed (nonspecific abdomen on KUB x-ray) Assessment and Plan (1) Nausea & vomiting Narrative/Plan: 50-year-old female presented to the hospital for intractable nausea and vomiting. Prior episodes of similar complaints in the past. She does report daily marijuana use. X-ray abdomen on presentation negative with normal amylase and lipase and no elevation of liver enzymes. Unclear etiology, may be related to bacterial or viral gastroenteritis, marijuana hyperemesis syndrome, diabetic gastroparesis, uncontrolled reflux, or other etiology. Current Visit: Yes Status: Acute Code(s): R11.2 - NAUSEA WITH VOMITING, UNSPECIFIED SNOMED Code(s): 32383607 (2) Chronic diarrhea Current Visit: Yes Status: Acute Code(s): K52.9 - NONINFECTIVE GASTROENTERITIS AND COLITIS, UNSPECIFIED SNOMED Code(s): 579270414 (3) Diabetes Current Visit: No Status: Acute Code(s): E11.9 - TYPE 2 DIABETES MELLITUS WITHOUT COMPLICATIONS SNOMED Code(s): 51027244 Plan: supportive care Okay for liquid diet, advance as tolerated Continue Zofran every 8 hours Will add Tigan every 8 hours We'll add Protonix daily Marijuana abstinence discussed with the patient No plans for endoscopic evaluation Patient is scheduled to follow up for ERCP at [facility] in April Thank you for allowing us to participate in the care the patient
[2020-04-13 21:15] LABS: Glucose,Whole Blood 177 mg/dL (75-99)
[2020-04-13] MEDS: PANTOPRAZOLE 40 MG/10 ML VIAL IVP SCH (21:29)
[2020-04-13] MEDS: TRIMETHOBENZAMIDE 300 MG CAP PO SCH (21:30)
[2020-04-13] MEDS: ATORVASTATIN 40 MG TAB PO SCH (21:30)
[2020-04-14] MEDS: SODIUM CHLORIDE 0.9% 1,000 ML IV SCH ×5 (00:44→23:17)
[2020-04-14] MEDS: ONDANSETRON 4 MG/2 ML VIAL IVP PRN ×2 (01:05→10:57)
[2020-04-14] MEDS: hydrALAZINE HCL 20 MG/ML 1 ML VIAL IVP PRN (03:55)
[2020-04-14] MEDS: TRIMETHOBENZAMIDE 300 MG CAP PO SCH ×3 (06:12→21:14)
[2020-04-14 06:21] LABS: Glucose,Whole Blood 172 mg/dL (75-99)
[2020-04-14] MEDS: INSULIN ASPART (NovoLOG) 100 UNIT/ML VIAL SQ SCH ×4 (06:34→21:20)
[2020-04-14] MEDS: metFORMIN 500 MG TAB PO SCH ×2 (09:00→21:13)
[2020-04-14] MEDS: PANTOPRAZOLE 40 MG/10 ML VIAL IVP SCH (09:00)
[2020-04-14] MEDS: LOSARTAN 50 MG TAB PO SCH ×2 (09:00→21:14)
[2020-04-14] MEDS: ASPIRIN 81 MG PO SCH (09:00)
[2020-04-14 09:02] LABS: Cholesterol 195 mg/dL (<200); HDL Cholesterol 51 mg/dL (40-60); LDL Cholesterol,Calculated 126 mg/dL (0-99); Triglycerides 90 mg/dL (<150)
--- NOTE | 2020-04-14 09:08 | P.CRDCN ---
History of Present Illness Consult date: 04/14/20 Consult reason: hypertension History of present illness: The patient is a 50-year-old female with past medical history of mild coronary artery disease, hypertension, dyslipidemia, uncontrolled diabetes, and chronic nausea, who follows with Dr. Johns in the office. The patient presented to the emergency room with abdominal pain and vomiting. The patient states she has been following with a hansard reporter and surgeon at [facility] for a newly diagnosed noncancerous pancreatic tumor. She is supposed to undergo an ablation later this month. We were consult and for hypertension as her blood pressure has not been well controlled since her arrival. On exam, she appears quite agitated and frustrated. She states her blood pressure has not been this high throughout any of her recent admissions. She states she has not been taking any of her heart medication over the last year due to her nausea and weight loss. She states she has lost approximately 100 pounds. DIAGNOSTICS: Sinus rhythm with nonspecific T wave changes indicating hypertension/LVH KUB scan unremarkable; shows nonspecific bowel gas pattern. Laboratory data shows W be CAD 0.4, hemoglobin 15.7, platelet 177, sodium 133, potassium 3.6, BUN 15, creatinine 0.48, hemoglobin A1c 8.8, magnesium 1.5, AST 31, ALT 22, LDL 126, triglycerides 90, amylase 61, lipase 96 Vital signs show blood pressure 184/87, heart rate 83, respiratory rate 18, temperature 96.5F, SpO2 98% on room air PAST MEDICAL HISTORY: Mild coronary artery disease, hypertension, dyslipidemia, diabetes mellitus, COPD, hiatal hernia, pancreatic mass REVIEW OF SYSTEMS: No fever or chills. No cough or expectoration. No diaphoresis. Patient denies headache, dizziness, blurred vision, double vision. Positive for abdominal discomfort. Positive for nausea. No hematochezia. No hematemesis. Denies any black stools or blood in his stools. Denies dysuria or hematuria. No muscle weakness or numbness. No chest pain or chest pressure. No shortness of breath. No orthopnea. PHYSICAL EXAMINATION: This is a 50 to-year-old female in no apparent distress at the time of my examination. HEENT: Head is atraumatic, normocephalic. Pupils are equal, round. Sclerae anicteric. Conjunctivae are clear. Mucous membranes of the mouth are moist. Neck is supple. There is no jugular venous distention. No carotid bruit is heard. CHEST EXAMINATION: Lungs are clear to auscultation. No chest wall tenderness is noted on palpation or with deep breathing. HEART EXAMINATION: Heart regular rate and rhythm. S1, S2 heard. No murmurs, gallops or rub. ABDOMEN: Soft. Mild tenderness to deep palpation. Bowel sounds are heard. No organomegaly noted. EXTREMITIES: 2+ peripheral pulses with no evidence of peripheral edema and no calf tenderness noted. NEUROLOGIC EXAMINATION: Patient is awake, alert and oriented x3. FINAL ASSESSMENT AND PLAN: #1 abdominal pain, secondary to pancreatic mass #2 dehydration, secondary to nausea and vomiting #3 hypomagnesemia #4 hypertension #5 dyslipidemia #6 uncontrolled diabetes, A1c 8.8 PLAN: Maximize antihypertensive regimen. The patient previously was on lisinopril 40 mg daily and Toprol XL, however had been noncompliant. We will increase her losartan to 50 mg twice daily. Continue low-dose aspirin and atorvastatin 40 mg. Fasting lipid profile to be done. No additional testing recommended at this time. The patient has been seen and evaluated. Plan of care has been reviewed and agreed upon by Dr Wellington. Past Medical History Past Medical History: Chest Pain / Angina, Diabetes Mellitus, Hyperlipidemia, Hypertension, Myocardial Infarction (HI) Additional Past Medical History / Comment(s): Rare migraines, IDDM type II, neuropathy bilateral feet.past uti,bipolar depression Last Myocardial Infarction Date:: 2014 History of Any Multi-Drug Resistant Organisms: MRSA Date of last positivie culture/infection: 2013/MRSA MDRO Source:: abdomen Past Surgical History: Cholecystectomy, Heart Catheterization, Tubal Ligation Additional Past Surgical History / Comment(s): Lorenzo eye sx as child to correct lazy eye, Past Anesthesia/Blood Transfusion Reactions: Postoperative Nausea & Vomiting (PONV) Past Psychological History: Bipolar, Depression Additional Psychological History / Comment(s): [facility]. She stated she is able to drive but has no vehicle. She gets to appointments thru her insurance company or by bus. She receives psychiatric care thru [facility]. She states she has had fleeting thoughts of suicide regularly for years but stated "i will never act on them". Smoking Status: Current every day smoker Past Alcohol Use History: Rare Additional Past Alcohol Use History / Comment(s): Pt started smoking in 1982 and is currently a half pack a day smoker. Past Drug Use History: None Reported, Marijuana Additional Drug Use History / Comment(s): Pt states she smokes marijuana most days - Past Family History Father Additional Family Medical History / Comment(s): Father had hypoglcemia, bipolar depression. He of an aortic aneurysm rupture in his 70's Mother Family Medical History: Cancer Additional Family Medical History / Comment(s): Mother of lung cancer that metastasized to her brain when she was in her 30's. Medications and Allergies Home Medications Medication Instructions Recorded Confirmed Type Aspirin [Adult Low Dose Aspirin EC] 81 mg PO DAILY 06/04/19 04/12/20 History Atorvastatin [Lipitor] 40 mg PO HS 06/04/19 04/12/20 History metFORMIN HCL 1,000 mg PO BID 07/30/19 04/12/20 History HYDROcodone/APAP 5-325MG [[place] 1 tab PO Q4-6H PRN 04/12/20 04/12/20 History 5-325] Allergies Allergy/AdvReac Type Severity Reaction Status Date / Time sucralose AdvReac Intermediate Nausea & Verified 04/12/20 17:08 [From Splenda (sucralose)] Vomiting & Diarrhea Physical Exam Vitals: Vital Signs Temp Pulse Resp BP Pulse Ox 04/14/20 08:22 96.5 F L 83 18 184/87 98 04/14/20 06:30 187/97 04/14/20 03:00 98.5 F 82 18 188/93 93 L 04/14/20 02:29 96 18 04/13/20 21:23 96 18 04/13/20 21:18 97.7 F 96 18 138/73 96 04/13/20 14:17 96.5 F L 85 18 186/90 96 Intake and Output 04/13/20 04/14/20 04/14/20 22:59 06:59 14:59 Intake Total 480 195 Output Total 2 2 Balance 478 -2 195 Intake: Intake, IV Titration 195 Amount Sodium Chloride 0.9% 1, 195 000 ml @ 130 mls/hr IV . Q7H42M [facility] Rx#:[id number] Oral 480 Output: Stool 2 2 Other: # Voids 1 1 1 # Bowel Movements 1 Results 04/13/20 05:36 04/13/20 05:36 Current Medications Generic Name Dose Route Start Last Admin Trade Name Freq PRN Reason Stop Dose Admin Aspirin 81 mg 04/13/20 09:00 04/13/20 08:24 Aspirin 81 Mg PO 81 mg DAILY LEANDRA Administration Atorvastatin Calcium 40 mg 04/12/20 23:15 04/13/20 21:30 Atorvastatin 40 Mg Tab PO 40 mg HS LEANDRA Administration Cholestyramine Resin 4 gm 04/14/20 10:00 Cholestyramine (With Sugar) 4 Gm Packet PO BID@1000,1800 LEANDRA Sodium Chloride 1,000 mls @ 130 mls/hr 04/12/20 17:00 04/14/20 06:34 Saline 0.9% IV 130 mls/hr .Q7H42M LEANDRA Administration Insulin Aspart 0 unit 04/13/20 17:30 04/14/20 06:34 Insulin Aspart (Novolog) 100 Unit/Ml Vial SQ 2 unit ACHS LEANDRA Administration Protocol Losartan Potassium 50 mg 04/14/20 09:00 Losartan 50 Mg Tab PO BID LEANDRA Metformin HCl 1,000 mg 04/12/20 23:15 04/13/20 21:30 Metformin 500 Mg Tab PO 1,000 mg BID LEANDRA Administration Morphine Sulfate 4 mg 04/12/20 16:53 04/13/20 21:38 Morphine Sulfate 4 Mg/Ml Syringe IV 4 mg Q4HR PRN Administration Severe Pain Naloxone HCl 0.2 mg 04/12/20 16:53 Naloxone 0.4 Mg/Ml 1 Ml Vial IV Q2M PRN Opioid Reversal Ondansetron HCl 4 mg 04/12/20 16:53 04/14/20 01:05 Ondansetron 4 Mg/2 Ml Vial IVP 4 mg Q8HR PRN Administration Nausea And Vomiting Pantoprazole Sodium 40 mg 04/13/20 20:15 04/13/20 21:29 Pantoprazole 40 Mg/10 Ml Vial IVP 40 mg DAILY LEANDRA Administration Trimethobenzamide HCl 300 mg 04/13/20 22:00 04/14/20 06:12 Trimethobenzamide 300 Mg Cap PO 300 mg Q8H LEANDRA Administration Intake and Output 04/13/20 04/14/20 04/14/20 22:59 06:59 14:59 Intake Total 480 195 Output Total 2 2 Balance 478 -2 195 Intake: Intake, IV Titration 195 Amount Sodium Chloride 0.9% 1, 195 000 ml @ 130 mls/hr IV . Q7H42M LEANDRA Rx#:[id number] Oral 480 Output: Stool 2 2 Other: # Voids 1 1 1 # Bowel Movements 1 04/13/20 05:36 04/13/20 05:36
[2020-04-14] MEDS: MORPHINE SULFATE 4 MG/ML SYRINGE IV PRN (10:57)
[2020-04-14] MEDS: CHOLESTYRAMINE (WITH SUGAR) 4 GM PACKET PO SCH ×2 (10:57→18:30)
[2020-04-14 10:58] LABS: Glucose,Whole Blood 191 mg/dL (75-99)
--- NOTE | 2020-04-14 13:29 | P.PN ---
Subjective Progress Note Date: 04/14/20 Principal diagnosis: Ongoing nausea vomiting Hypertensive urgency Uncontrolled diabetes Dehydration Status post cholecystectomy Mild hyponatremia 04/14/2020, patient seen eval examined nausea vomiting slightly stable, patient able to handle clear liquid diet, will advance the diet as tolerated, blood pressure remains on the higher side, cardiovascular services and evaluated and adjusted the blood pressure medicine, appears that patient has been noncompliant with medications for extended period of time, will likely stay 1 more day in the hospital until blood pressure is stabilized and able to tolerate by mouth well anticipated next 24 hours possible discharge This is a 50-year-old female who was seen evaluated examined, patient came into the hospital with ongoing nausea vomiting she has a history of ongoing process has been scheduled for ERCP at [facility], she also has problems associated diabetes while in the hospital she continued to have elevated blood pressure and GI symptoms, the GI been consulted also cardiovascular services are being consulted as well, her past medical history significant for diabetes mellitus dyslipidemia hypertension hypertensive cardiovascular disease history of asthma Objective - Vital Signs Vital signs: Vital Signs Temp 96.5 F L 04/14/20 08:22 Pulse 83 04/14/20 08:22 Resp 18 04/14/20 08:22 BP 184/87 04/14/20 08:22 Pulse Ox 98 04/14/20 08:22 Intake & Output 04/13/20 04/14/20 04/14/20 18:59 06:59 18:59 Intake Total 720 195 Output Total 1 3 Balance 719 -3 195 Intake: Intake, IV Titration 195 Amount Sodium Chloride 0.9% 1, 195 000 ml @ 130 mls/hr IV . Q7H42M [facility] Rx#:[id number] Oral 720 Output: Stool 1 3 Other: # Voids 3 1 1 # Bowel Movements 1 1 - Exam - Constitutional General appearance: cooperative, disheveled - EENT Eyes: PERRLA Ears: bilateral: normal - Neck Carotids: bilateral: upstroke normal Thyroid: bilateral: normal size - Respiratory Respiratory: bilateral: CTA - Cardiovascular Rhythm: regular Heart sounds: normal: S1, S2 - Gastrointestinal General gastrointestinal: normal bowel sounds, soft - Neurologic Neurologic: CNII-XII intact - Musculoskeletal Musculoskeletal: gait normal, generalized weakness, strength equal bilaterally - Psychiatric Psychiatric: A&O x's 3, appropriate affect, intact judgment & insight - Labs CBC & Chem 7: 04/13/20 05:36 04/13/20 05:36 Labs: Abnormal Lab Results - Last 24 Hours (Table) 04/13/20 04/13/20 04/13/20 Range/Units 05:36 08:54 16:55 POC Glucose (mg/dL) 235 H (75-99) mg/dL Hemoglobin A1c 8.8 H (4.0-6.0) % LDL Cholesterol, Calc 126 H (0-99) mg/dL 04/13/20 04/14/20 04/14/20 Range/Units 21:03 06:19 10:56 POC Glucose (mg/dL) 177 H 172 H 191 H (75-99) mg/dL Hemoglobin A1c (4.0-6.0) % LDL Cholesterol, Calc (0-99) mg/dL Assessment and Plan Assessment: Ongoing nausea vomiting Hypertensive urgency Uncontrolled diabetes Dehydration Status post cholecystectomy Mild hyponatremia Plan: Gentle rehydration Blood pressure control with hydralazine and Cozaar Resume home medications Consult GI and cardiovascular services noted and appreciated Further recommendations pending plan of care as per clinical response of patient Time with Patient: Greater than 30
[2020-04-14 14:53] VITALS: RESP 16
[2020-04-14 16:55] LABS: Glucose,Whole Blood 154 mg/dL (75-99)
--- NOTE | 2020-04-14 17:28 | P.PN ---
Subjective Progress Note Date: 04/14/20 Principal diagnosis: Nausea and vomiting It is seen lying in bed today. No further vomiting, reports less nausea. No acute complaints. Tolerated liquids with plans advance diet today. Objective - Vital Signs Vital signs: Vital Signs Temp 96.5 F L 04/14/20 08:22 Pulse 83 04/14/20 08:22 Resp 18 04/14/20 08:22 BP 184/87 04/14/20 08:22 Pulse Ox 98 04/14/20 08:22 Intake & Output 04/13/20 04/14/20 04/14/20 18:59 06:59 18:59 Intake Total 720 195 Output Total 1 3 Balance 719 -3 195 Intake: Intake, IV Titration 195 Amount Sodium Chloride 0.9% 1, 195 000 ml @ 130 mls/hr IV . Q7H42M [facility] Rx#:[id number] Oral 720 Output: Stool 1 3 Other: # Voids 3 1 1 # Bowel Movements 1 1 - Exam On physical examination, patient appears comfortable in no apparent distress. HEAD: Normocephalic, atraumatic. EYES: No scleral icterus. No conjunctival injection. MOUTH: No lesions, tongue midline. NECK: Trachea midline, no gross abnormalities. ABDOMEN: Soft, nontender. Bowel sounds are positive. No organomegaly. No guarding or rigidity. EXTREMITIES: No pedal edema. SKIN: No rashes, no jaundice. NEUROLOGIC: Alert and oriented x3. No focal deficits. - Labs CBC & Chem 7: 04/13/20 05:36 04/13/20 05:36 Labs: Abnormal Lab Results - Last 24 Hours (Table) 04/13/20 04/13/20 04/13/20 Range/Units 05:36 08:54 16:55 POC Glucose (mg/dL) 235 H (75-99) mg/dL Hemoglobin A1c 8.8 H (4.0-6.0) % LDL Cholesterol, Calc 126 H (0-99) mg/dL 04/13/20 04/14/20 04/14/20 Range/Units 21:03 06:19 10:56 POC Glucose (mg/dL) 177 H 172 H 191 H (75-99) mg/dL Hemoglobin A1c (4.0-6.0) % LDL Cholesterol, Calc (0-99) mg/dL Assessment and Plan (1) Nausea & vomiting Narrative/Plan: 50-year-old female presented to the hospital for intractable nausea and vomiting. Prior episodes of similar complaints in the past. She does report daily marijuana use. X-ray abdomen on presentation negative with normal amylase and lipase and no elevation of liver enzymes. Unclear etiology, may be related to bacterial or viral gastroenteritis, marijuana hyperemesis syndrome, diabetic gastroparesis, uncontrolled reflux, or other etiology. Patient reports decreased nausea and vomiting today on antibiotic therapy. Current Visit: Yes Status: Acute Code(s): R11.2 - NAUSEA WITH VOMITING, UNSPECIFIED SNOMED Code(s): 70035305 (2) Chronic diarrhea Current Visit: Yes Status: Acute Code(s): K52.9 - NONINFECTIVE GASTROENTERITIS AND COLITIS, UNSPECIFIED SNOMED Code(s): 429657258 (3) Diabetes Current Visit: No Status: Acute Code(s): E11.9 - TYPE 2 DIABETES MELLITUS WITHOUT COMPLICATIONS SNOMED Code(s): 48084678 Plan: supportive care Okay for diet as tolerated Continue Zofran every 8 hours Tigan every 8 hours Protonix daily Marijuana abstinence discussed with the patient No plans for endoscopic evaluation Patient is scheduled to follow up for ERCP at [facility] in April Thank you for allowing us to participate in the care the patient
[2020-04-14 20:09] LABS: Glucose,Whole Blood 197 mg/dL (75-99)
[2020-04-14] MEDS: ATORVASTATIN 40 MG TAB PO SCH (21:14)
[2020-04-15] MEDS: MORPHINE SULFATE 4 MG/ML SYRINGE IV PRN (03:16)
[2020-04-15 03:51] VITALS: PULSE 76
[2020-04-15] MEDS: SODIUM CHLORIDE 0.9% 1,000 ML IV SCH (06:26)
[2020-04-15] MEDS: TRIMETHOBENZAMIDE 300 MG CAP PO SCH (06:26)
[2020-04-15 06:33] LABS: Glucose,Whole Blood 150 mg/dL (75-99)
[2020-04-15] MEDS: INSULIN ASPART (NovoLOG) 100 UNIT/ML VIAL SQ SCH ×2 (06:56→11:45)
[2020-04-15 07:01] LABS: Basophils % (A) 0 %; Eosinophils # (A) 0.1 k/uL (0-0.7); Eosinophils % (A) 1 %; HCT 42.5 % (34.0-46.0); HGB 14.8 gm/dL (11.4-16.0); Lymphocytes # (A) 2.5 k/uL (1.0-4.8); Lymphocytes % (A) 38 %; MCH 31.4 pg (25.0-35.0); MCHC 34.9 g/dL (31.0-37.0); MCV 89.9 fL (80.0-100.0); Mean Platelet Volume 6.9; Monocytes # (A) 0.5 k/uL (0-1.0); Monocytes % (A) 7 %; Neutrophils # (A) 3.4 k/uL (1.3-7.7); Neutrophils % (A) 51 %; Platelet Count 174 k/uL (150-450); RBC 4.72 m/uL (3.80-5.40); RDW 11.4 % (11.5-15.5); WBC 6.6 k/uL (3.8-10.6)
[2020-04-15 07:15] LABS: ALT 22 U/L (4-34); AST 30 U/L (14-36); African American GFR (CKD) >90 (>60 ml/min/1.73 sqM); Albumin 3.2 g/dL (3.5-5.0); Alkaline Phosphatase 39 U/L (38-126); Anion Gap 4 mmol/L; Blood Urea Nitrogen 11 mg/dL (7-17); Calcium 8.6 mg/dL (8.4-10.2); Carbon Dioxide 26 mmol/L (22-30); Chloride 104 mmol/L (98-107); Glucose 162 mg/dL (74-99); Non-African American GFR(CKD) >90 (>60 ml/min/1.73 sqM); Potassium 3.2 mmol/L (3.5-5.1); Sodium 134 mmol/L (137-145); Total Bilirubin 1.3 mg/dL (0.2-1.3); Total Protein 5.9 g/dL (6.3-8.2)
[2020-04-15 07:58] VITALS: BP 163/88; TEMP 98.2
[2020-04-15] MEDS: CHOLESTYRAMINE (WITH SUGAR) 4 GM PACKET PO SCH (08:54)
[2020-04-15] MEDS: ASPIRIN 81 MG PO SCH (08:54)
[2020-04-15] MEDS: LOSARTAN 50 MG TAB PO SCH (08:55)
[2020-04-15] MEDS: PANTOPRAZOLE 40 MG/10 ML VIAL IVP SCH (08:55)
[2020-04-15] MEDS: metFORMIN 500 MG TAB PO SCH (08:55)
--- NOTE | 2020-04-15 09:39 | P.PN ---
Subjective Progress Note Date: 04/15/20 Principal diagnosis: Nausea and vomiting Patient is seen lying in bed tolerating diet. No further episodes of vomiting. No further nausea. Overall improved. Objective - Vital Signs Vital signs: Vital Signs Temp 98.2 F 04/15/20 07:57 Pulse 76 04/15/20 07:57 Resp 16 04/15/20 07:57 BP 163/88 04/15/20 07:57 Pulse Ox 100 04/15/20 07:57 Intake & Output 04/14/20 04/15/20 04/15/20 18:59 06:59 18:59 Intake Total 1780 Balance 1780 Intake: Intake, IV Titration 1300 Amount Sodium Chloride 0.9% 1, 1300 000 ml @ 130 mls/hr IV . Q7H42M [facility] Rx#:[id number] Oral 480 Other: # Voids 3 0 # Bowel Movements 1 1 - Exam On physical examination, patient appears comfortable in no apparent distress. HEAD: Normocephalic, atraumatic. EYES: No scleral icterus. No conjunctival injection. MOUTH: No lesions, tongue midline. NECK: Trachea midline, no gross abnormalities. ABDOMEN: Soft, nontender. Bowel sounds are positive. No organomegaly. No guarding or rigidity. EXTREMITIES: No pedal edema. SKIN: No rashes, no jaundice. NEUROLOGIC: Alert and oriented x3. No focal deficits. - Labs CBC & Chem 7: 04/15/20 06:43 04/15/20 06:43 Labs: Abnormal Lab Results - Last 24 Hours (Table) 04/13/20 04/14/20 04/14/20 Range/Units 08:54 10:56 16:53 RDW (11.5-15.5) % Sodium (137-145) mmol/L Potassium (3.5-5.1) mmol/L Creatinine (0.52-1.04) mg/dL Glucose (74-99) mg/dL POC Glucose (mg/dL) 191 H 154 H (75-99) mg/dL Total Protein (6.3-8.2) g/dL Albumin (3.5-5.0) g/dL LDL Cholesterol, Calc 126 H (0-99) mg/dL 04/14/20 04/15/20 04/15/20 Range/Units 20:04 06:25 06:43 RDW 11.4 L (11.5-15.5) % Sodium (137-145) mmol/L Potassium (3.5-5.1) mmol/L Creatinine (0.52-1.04) mg/dL Glucose (74-99) mg/dL POC Glucose (mg/dL) 197 H 150 H (75-99) mg/dL Total Protein (6.3-8.2) g/dL Albumin (3.5-5.0) g/dL LDL Cholesterol, Calc (0-99) mg/dL 04/15/20 Range/Units 06:43 RDW (11.5-15.5) % Sodium 134 L (137-145) mmol/L Potassium 3.2 L (3.5-5.1) mmol/L Creatinine 0.45 L (0.52-1.04) mg/dL Glucose 162 H (74-99) mg/dL POC Glucose (mg/dL) (75-99) mg/dL Total Protein 5.9 L (6.3-8.2) g/dL Albumin 3.2 L (3.5-5.0) g/dL LDL Cholesterol, Calc (0-99) mg/dL Assessment and Plan (1) Nausea & vomiting Narrative/Plan: 50-year-old female presented to the hospital for intractable nausea and vomiting. Prior episodes of similar complaints in the past. She does report daily marijuana use. X-ray abdomen on presentation negative with normal amylase and lipase and no elevation of liver enzymes. Unclear etiology, may be related to bacterial or viral gastroenteritis, marijuana hyperemesis syndrome, diabetic gastroparesis, uncontrolled reflux, or other etiology. Patient reports tolerating diet this morning. No further vomiting.. Current Visit: Yes Status: Acute Code(s): R11.2 - NAUSEA WITH VOMITING, UNSPECIFIED SNOMED Code(s): 24045411 (2) Chronic diarrhea Current Visit: Yes Status: Acute Code(s): K52.9 - NONINFECTIVE GASTROENTERITIS AND COLITIS, UNSPECIFIED SNOMED Code(s): 885015677 (3) Diabetes Current Visit: No Status: Acute Code(s): E11.9 - TYPE 2 DIABETES MELLITUS WITHOUT COMPLICATIONS SNOMED Code(s): 29595128 Plan: supportive care Okay for diet as tolerated Continue Zofran every 8 hours Tigan every 8 hours Protonix daily Marijuana abstinence discussed with the patient No plans for endoscopic evaluation Patient is scheduled to follow up for ERCP at [facility] in April for discharge from GI when otherwise medically stable Thank you for allowing us to participate in the care the patient, the GI service will stand by, please call us back with any questions or concerns
[2020-04-15] MEDS ORDERED: Potassium Replacement Protocol 1 EACH MISC MISCELLANE PRN (11:33)
[2020-04-15 11:42] LABS: Glucose,Whole Blood 175 mg/dL (75-99)
[2020-04-15] MEDS: POTASSIUM CHLORIDE ER 20 MEQ TAB.ER PO SCH ×2 (11:45→12:44)
--- NOTE | 2020-04-15 14:28 | P.DS ---
Providers Date of admission: 04/14/20 08:05 Expected date of discharge: 04/15/20 Attending physician: Misael Carpenter Consults: 04/13/20 14:26 Consult Physician Routine Consulting Provider: Hector Wellington Consult Reason/Comments: htn Do you want consulting provider notified?: Yes Primary care physician: [facility] Course: 04/15/2020, patient seen eval reexamined symptoms of nausea vomiting have improved significantly, tolerating by mouth well hemodynamic status stable and continued to improve patient has been us evaluated by GI as well as cardiovascular disease stable from their standpoint for discharge 04/14/2020, patient seen eval examined nausea vomiting slightly stable, patient able to handle clear liquid diet, will advance the diet as tolerated, blood pressure remains on the higher side, cardiovascular services and evaluated and adjusted the blood pressure medicine, appears that patient has been noncompliant with medications for extended period of time, will likely stay 1 more day in the hospital until blood pressure is stabilized and able to tolerate by mouth well anticipated next 24 hours possible discharge This is a 50-year-old female who was seen evaluated examined, patient came into the hospital with ongoing nausea vomiting she has a history of ongoing process has been scheduled for ERCP at [facility], she also has problems associated diabetes while in the hospital she continued to have elevated blood pressure and GI symptoms, the GI been consulted also cardiovascular services are being consulted as well, her past medical history significant for diabetes mellitus dyslipidemia hypertension hypertensive cardiovascular disease history of asthma Assessment: Ongoing nausea vomiting Hypertensive urgency Uncontrolled diabetes Dehydration Status post cholecystectomy Mild hyponatremia Patient Condition at Discharge: Stable Plan - Discharge Summary Discharge Rx Participant: No New Discharge Prescriptions: New Losartan [Cozaar] 50 mg PO BID #60 tab Omeprazole 20 mg PO DAILY 30 Days #30 tablet. Continue Atorvastatin [Lipitor] 40 mg PO HS Aspirin [Adult Low Dose Aspirin EC] 81 mg PO DAILY metFORMIN HCL 1,000 mg PO BID HYDROcodone/APAP 5-325MG [[place] 5-325] 1 tab PO Q4-6H PRN PRN Reason: Pain Discharge Medication List Aspirin [Adult Low Dose Aspirin EC] 81 mg PO DAILY 06/04/19 [History] Atorvastatin [Lipitor] 40 mg PO HS 06/04/19 [History] metFORMIN HCL 1,000 mg PO BID 07/30/19 [History] HYDROcodone/APAP 5-325MG [[place] 5-325] 1 tab PO Q4-6H PRN 04/12/20 [History] Losartan [Cozaar] 50 mg PO BID #60 tab 04/15/20 [Rx] Omeprazole 20 mg PO DAILY 30 Days #30 tablet. 04/15/20 [Rx] Follow up Appointment(s)/Referral(s): Senthil Valencia MD [Primary Care Provider] - 1-2 days Discharge Disposition: HOME SELF-CARE
== END 2020-04-15 16:22 | disposition home or self-care (01) | DRG 392 ==
LOC: EC 14:22 → 1SOBS 16:53 → OBSVTOIN 04-14 08:05
PROVIDERS: ADMIT Internal Medicine Sleep Medicine; ATTEND Internal Medicine Sleep Medicine
DX: R11.2 Nausea with vomiting, unspecified (principal); E87.1 Hypo-osmolality and hyponatremia; R45.851 Suicidal ideations; E11.65 Type 2 diabetes mellitus with hyperglycemia; E78.5 Hyperlipidemia, unspecified; E86.0 Dehydration; F17.210 Nicotine dependence, cigarettes, uncomplicated; F31.9 Bipolar disorder, unspecified; E11.40 Type 2 diabetes mellitus with diabetic neuropathy, unspecified; Z79.84 Long term (current) use of oral hypoglycemic drugs; I11.9 Hypertensive heart disease without heart failure; I16.0 Hypertensive urgency; D13.6 Benign neoplasm of pancreas; I25.10 Atherosclerotic heart disease of native coronary artery without angina pectoris; I25.2 Old myocardial infarction; J44.9 Chronic obstructive pulmonary disease, unspecified; K52.9 Noninfective gastroenteritis and colitis, unspecified; Z79.82 Long term (current) use of aspirin; Z79.899 Other long term (current) drug therapy; Z80.1 Family history of malignant neoplasm of trachea, bronchus and lung; Z87.440 Personal history of urinary (tract) infections; Z90.49 Acquired absence of other specified parts of digestive tract; Z91.14 Patient's other noncompliance with medication regimen; K44.9 Diaphragmatic hernia without obstruction or gangrene; R63.4 Abnormal weight loss; Z68.28 Body mass index [BMI] 28.0-28.9, adult
CPT/HCPCS: 36415; 74018; 80053; 80061; 81001; 82009; 82150; 83036; 83605; 83690; 83735; 84484; 85025; 85610; 85730; 93005; 96361; 96374; 96375; 99285

== ENCOUNTER 2020-05-15 02:21 | Observation (INO) | payer OTHER ==
--- NOTE | 2020-05-15 02:37 | ED ---
Nausea/Vomiting/Diarrhea HPI - General Stated complaint: NVD Time Seen by Provider: 05/15/20 02:28 Source: RN notes reviewed, old records reviewed Limitations: no limitations - History of Present Illness Initial comments: This is a 51-year-old female DF for persistent nausea vomiting. Patient had ERCP loss today, does admit to no complaints after but the persistent nausea vomiting increased throughout the day. Patient is afebrile. No abdominal pain diffuse is unable to keep anything down and blood sugars been running high, can take medications and blood pressure is running high MD complaint: nausea, vomiting -: hour(s) Description of Vomiting: food contents Associated Abdominal Pain: No Radiation: none Severity: severe Severity scale (1-10): 8 Consistency: constant Improves with: none Worsens with: none Associated Symptoms: myalgias, loss of appetite, nausea/vomiting, weakness - Related Data Home Medications Medication Instructions Recorded Confirmed Aspirin [Adult Low Dose Aspirin EC] 81 mg PO DAILY 06/04/19 04/12/20 Atorvastatin [Lipitor] 40 mg PO HS 06/04/19 04/12/20 metFORMIN HCL 1,000 mg PO BID 07/30/19 04/12/20 HYDROcodone/APAP 5-325MG [[place] 1 tab PO Q4-6H PRN 04/12/20 04/12/20 5-325] Previous Rx's Medication Instructions Recorded Losartan [Cozaar] 50 mg PO BID #60 tab 04/15/20 Omeprazole 20 mg PO DAILY 30 Days #30 04/15/20 tablet. Allergies Allergy/AdvReac Type Severity Reaction Status Date / Time sucralose AdvReac Intermediate Nausea & Verified 04/12/20 17:08 [From Splenda (sucralose)] Vomiting & Diarrhea Review of Systems ROS Statement: Those systems with pertinent positive or pertinent negative responses have been documented in the HPI. ROS Other: All systems not noted in ROS Statement are negative. Past Medical History Past Medical History: Chest Pain / Angina, Diabetes Mellitus, Hyperlipidemia, Hypertension, Myocardial Infarction (NH) Additional Past Medical History / Comment(s): Rare migraines, IDDM type II, ne uropathy bilateral feet.past uti,bipolar depression Last Myocardial Infarction Date:: 2014 History of Any Multi-Drug Resistant Organisms: MRSA Date of last positivie culture/infection: 2013/MRSA MDRO Source:: abdomen Past Surgical History: Cholecystectomy, Heart Catheterization, Tubal Ligation Additional Past Surgical History / Comment(s): Lorenzo eye sx as child to correct lazy eye, Past Anesthesia/Blood Transfusion Reactions: Postoperative Nausea & Vomiting (PONV) Past Psychological History: Bipolar, Depression Additional Psychological History / Comment(s): Pt resides with her fiaydee. She stated she is able to drive but has no vehicle. She gets to appointments thru her insurance company or by bus. She receives psychiatric care thru [facility]. She states she has had fleeting thoughts of suicide regularly for years but stated "i will never act on them". Smoking Status: Current every day smoker Past Alcohol Use History: Rare Additional Past Alcohol Use History / Comment(s): Pt started smoking in 1982 and is currently a half pack a day smoker. Past Drug Use History: None Reported, Marijuana Additional Drug Use History / Comment(s): Pt states she smokes marijuana most days - Past Family History Father Additional Family Medical History / Comment(s): Father had hypoglcemia, bipolar depression. He of an aortic aneurysm rupture in his 70's Mother Family Medical History: Cancer Additional Family Medical History / Comment(s): Mother of lung cancer that metastasized to her brain when she was in her 30's. General Exam General appearance: alert, in no apparent distress Head exam: Present: atraumatic, normocephalic, normal inspection Eye exam: Present: normal appearance, PERRL, EOMI. Absent: scleral icterus, conjunctival injection, periorbital swelling ENT exam: Present: normal exam, mucous membranes moist Neck exam: Present: normal inspection. Absent: tenderness, meningismus, lymphadenopathy Respiratory exam: Present: normal lung sounds bilaterally. Absent: respiratory distress, wheezes, rales, rhonchi, stridor Cardiovascular Exam: Present: regular rate, normal rhythm, normal heart sounds. Absent: systolic murmur, diastolic murmur, rubs, gallop, clicks GI/Abdominal exam: Present: soft, normal bowel sounds. Absent: distended, tenderness, guarding, rebound, rigid Extremities exam: Present: normal inspection, full ROM, normal capillary refill. Absent: tenderness, pedal edema, joint swelling, calf tenderness Back exam: Present: normal inspection Neurological exam: Present: alert, oriented X3, CN II-XII intact Psychiatric exam: Present: normal affect, normal mood Skin exam: Present: warm, dry, intact, normal color. Absent: rash Course Vital Signs 05/15/20 05/15/20 05/15/20 03:02 03:30 03:48 Temperature 97.9 F Pulse Rate 84 71 Respiratory 20 22 Rate Blood Pressure 200/94 200/118 169/79 O2 Sat by Pulse 98 97 Oximetry 05/15/20 05/15/20 04:22 05:06 Temperature Pulse Rate 79 81 Respiratory 20 20 Rate Blood Pressure 159/82 168/93 O2 Sat by Pulse 96 97 Oximetry - Reevaluation(s) Reevaluation #1: medical record is reviewed Patient has improvement of symptoms, continues to feel better. Patient informed results, questions answered Patient feels stable for discharge home Medical Decision Making - Medical Decision Making 50 female to the ER for evaluation patient Dese for evaluation of persistent nausea vomiting. Patient does not fill comfortable going home and will admit for further evaluation management - Lab Data Result diagrams: 05/15/20 03:25 05/15/20 03:25 Lab Results 05/15/20 05/15/20 05/15/20 Range/Units 03:18 03:25 03:25 WBC 6.2 (3.8-10.6) k/uL RBC 5.04 (3.80-5.40) m/uL Hgb 16.0 (11.4-16.0) gm/dL Hct 45.6 (34.0-46.0) % MCV 90.6 (80.0-100.0) fL MCH 31.7 (25.0-35.0) pg MCHC 35.0 (31.0-37.0) g/dL RDW 12.3 (11.5-15.5) % Plt Count 204 (150-450) k/uL MPV 8.1 Neutrophils % 83 % Lymphocytes % 12 % Monocytes % 4 % Eosinophils % 0 % Basophils % 0 % Neutrophils # 5.1 (1.3-7.7) k/uL Lymphocytes # 0.7 L (1.0-4.8) k/uL Monocytes # 0.2 (0-1.0) k/uL Eosinophils # 0.0 (0-0.7) k/uL Basophils # 0.0 (0-0.2) k/uL PT 10.4 (9.0-12.0) sec INR 1.0 (<1.2) APTT 21.6 L (22.0-30.0) sec Sodium (137-145) mmol/L Potassium (3.5-5.1) mmol/L Chloride (98-107) mmol/L Carbon Dioxide (22-30) mmol/L Anion Gap mmol/L BUN (7-17) mg/dL Creatinine (0.52-1.04) mg/dL Est GFR (CKD-EPI)AfAm (>60 ml/min/1.73 sqM) Est GFR (CKD-EPI)NonAf (>60 ml/min/1.73 sqM) Glucose (74-99) mg/dL POC Glucose (mg/dL) 334 H (75-99) mg/dL POC Glu [employer] Tax ID Lesia White Plasma Lactic Acid Pro (0.7-2.0) mmol/L Calcium (8.4-10.2) mg/dL Phosphorus (2.5-4.5) mg/dL Magnesium (1.6-2.3) mg/dL Total Bilirubin (0.2-1.3) mg/dL AST (14-36) U/L ALT (4-34) U/L Alkaline Phosphatase (38-126) U/L Creatine Kinase (30-135) U/L Troponin I (0.000-0.034) ng/mL Total Protein (6.3-8.2) g/dL Albumin (3.5-5.0) g/dL Lipase (23-300) U/L 05/15/20 05/15/20 05/15/20 Range/Units 03:25 03:25 03:25 WBC (3.8-10.6) k/uL RBC (3.80-5.40) m/uL Hgb (11.4-16.0) gm/dL Hct (34.0-46.0) % MCV (80.0-100.0) fL MCH (25.0-35.0) pg MCHC (31.0-37.0) g/dL RDW (11.5-15.5) % Plt Count (150-450) k/uL MPV Neutrophils % % Lymphocytes % % Monocytes % % Eosinophils % % Basophils % % Neutrophils # (1.3-7.7) k/uL Lymphocytes # (1.0-4.8) k/uL Monocytes # (0-1.0) k/uL Eosinophils # (0-0.7) k/uL Basophils # (0-0.2) k/uL PT (9.0-12.0) sec INR (<1.2) APTT (22.0-30.0) sec Sodium 132 L (137-145) mmol/L Potassium 4.8 (3.5-5.1) mmol/L Chloride 98 (98-107) mmol/L Carbon Dioxide 25 (22-30) mmol/L Anion Gap 9 mmol/L BUN 14 (7-17) mg/dL Creatinine 0.44 L (0.52-1.04) mg/dL Est GFR (CKD-EPI)AfAm >90 (>60 ml/min/1.73 sqM) Est GFR (CKD-EPI)NonAf >90 (>60 ml/min/1.73 sqM) Glucose 355 H (74-99) mg/dL POC Glucose (mg/dL) (75-99) mg/dL POC Glu [employer] Tax ID Plasma Lactic Acid Pro 2.0 (0.7-2.0) mmol/L Calcium 9.4 (8.4-10.2) mg/dL Phosphorus 3.9 (2.5-4.5) mg/dL Magnesium 1.4 L (1.6-2.3) mg/dL Total Bilirubin 1.2 (0.2-1.3) mg/dL AST 33 (14-36) U/L ALT 18 (4-34) U/L Alkaline Phosphatase 66 (38-126) U/L Creatine Kinase 170 H (30-135) U/L Troponin I <0.012 (0.000-0.034) ng/mL Total Protein 7.7 (6.3-8.2) g/dL Albumin 4.3 (3.5-5.0) g/dL Lipase (23-300) U/L 05/15/20 05/15/20 Range/Units 04:03 04:56 WBC (3.8-10.6) k/uL RBC (3.80-5.40) m/uL Hgb (11.4-16.0) gm/dL Hct (34.0-46.0) % MCV (80.0-100.0) fL MCH (25.0-35.0) pg MCHC (31.0-37.0) g/dL RDW (11.5-15.5) % Plt Count (150-450) k/uL MPV Neutrophils % % Lymphocytes % % Monocytes % % Eosinophils % % Basophils % % Neutrophils # (1.3-7.7) k/uL Lymphocytes # (1.0-4.8) k/uL Monocytes # (0-1.0) k/uL Eosinophils # (0-0.7) k/uL Basophils # (0-0.2) k/uL PT (9.0-12.0) sec INR (<1.2) APTT (22.0-30.0) sec Sodium (137-145) mmol/L Potassium (3.5-5.1) mmol/L Chloride (98-107) mmol/L Carbon Dioxide (22-30) mmol/L Anion Gap mmol/L BUN (7-17) mg/dL Creatinine (0.52-1.04) mg/dL Est GFR (CKD-EPI)AfAm (>60 ml/min/1.73 sqM) Est GFR (CKD-EPI)NonAf (>60 ml/min/1.73 sqM) Glucose (74-99) mg/dL POC Glucose (mg/dL) 298 H (75-99) mg/dL POC Glu [employer]raiser [employer] Tax ID Lesia White Plasma Lactic Acid Pro (0.7-2.0) mmol/L Calcium (8.4-10.2) mg/dL Phosphorus (2.5-4.5) mg/dL Magnesium (1.6-2.3) mg/dL Total Bilirubin (0.2-1.3) mg/dL AST (14-36) U/L ALT (4-34) U/L Alkaline Phosphatase (38-126) U/L Creatine Kinase (30-135) U/L Troponin I (0.000-0.034) ng/mL Total Protein (6.3-8.2) g/dL Albumin (3.5-5.0) g/dL Lipase 175 (23-300) U/L - EKG Data -: EKG Interpreted by Me (EKG is sinus rhythm 75 LA 170 QRS 92 QTC 455) Disposition Clinical Impression: Diabetes, Nausea & vomiting, Dehydration, Hyperglycemia Disposition: ADMITTED IP TO THIS HOSP Condition: Fair Is patient prescribed a controlled substance at d/c from ED?: No
[2020-05-15] MEDS ORDERED: SODIUM CHLORIDE 0.9% 500 ML 500 ML IV STA (03:16)
[2020-05-15] MEDS ORDERED: ONDANSETRON 4 MG/2 ML VIAL IVP STA (03:16)
[2020-05-15] MEDS ORDERED: PANTOPRAZOLE 40 MG/10 ML VIAL IVP STA (03:16)
[2020-05-15] MEDS ORDERED: SODIUM CHLORIDE 0.9% 1,000 ML IV STA ×2 (03:16)
[2020-05-15] MEDS ORDERED: MORPHINE SULFATE 4 MG/ML SYRINGE IV STA (03:16)
[2020-05-15] MEDS ORDERED: LABETALOL 5 MG/ML VIAL MDV IVP STA (03:17)
[2020-05-15 03:19] LABS: Glucose,Whole Blood 334 mg/dL (75-99)
[2020-05-15 03:35] LABS: Basophils % (A) 0 %; Eosinophils % (A) 0 %; HCT 45.6 % (34.0-46.0); Lymphocytes # (A) 0.7 k/uL (1.0-4.8); Lymphocytes % (A) 12 %; MCH 31.7 pg (25.0-35.0); MCV 90.6 fL (80.0-100.0); Mean Platelet Volume 8.1; Monocytes # (A) 0.2 k/uL (0-1.0); Monocytes % (A) 4 %; Neutrophils # (A) 5.1 k/uL (1.3-7.7); Neutrophils % (A) 83 %; Platelet Count 204 k/uL (150-450); RBC 5.04 m/uL (3.80-5.40); RDW 12.3 % (11.5-15.5); WBC 6.2 k/uL (3.8-10.6)
[2020-05-15 03:52] LABS: African American GFR (CKD) >90 (>60 ml/min/1.73 sqM); Albumin 4.3 g/dL (3.5-5.0); Anion Gap 9 mmol/L; Calcium 9.4 mg/dL (8.4-10.2); Carbon Dioxide 25 mmol/L (22-30); Chloride 98 mmol/L (98-107); Creatine Kinase 170 U/L (30-135); Glucose 355 mg/dL (74-99); Non-African American GFR(CKD) >90 (>60 ml/min/1.73 sqM); Sodium 132 mmol/L (137-145); Total Bilirubin 1.2 mg/dL (0.2-1.3); Total Protein 7.7 g/dL (6.3-8.2)
[2020-05-15 03:55] LABS: ALT 18 U/L (4-34); AST 33 U/L (14-36); Alkaline Phosphatase 66 U/L (38-126); Blood Urea Nitrogen 14 mg/dL (7-17); Magnesium 1.4 mg/dL (1.6-2.3); Phosphorus 3.9 mg/dL (2.5-4.5); Potassium 4.8 mmol/L (3.5-5.1)
[2020-05-15 04:30] LABS: Prothrombin Time 10.4 sec (9.0-12.0)
[2020-05-15 04:31] LABS: Partial Thromboplastin Time 21.6 sec (22.0-30.0)
[2020-05-15 04:59] LABS: Glucose,Whole Blood 298 mg/dL (75-99)
[2020-05-15] MEDS ORDERED: ONDANSETRON 4 MG/2 ML VIAL IVP PRN (05:15)
[2020-05-15] MEDS ORDERED: NALOXONE 0.4 MG/ML 1 ML VIAL IV PRN (05:15)
[2020-05-15] MEDS ORDERED: MORPHINE SULFATE 4 MG/ML SYRINGE IV PRN (05:15)
[2020-05-15] MEDS: SODIUM CHLORIDE 0.9% 1,000 ML IV SCH ×2 (06:29→15:23)
[2020-05-15 07:20] LABS: Glucose,Whole Blood 287 mg/dL (75-99)
[2020-05-15] MEDS ORDERED: PANTOPRAZOLE 40 MG/10 ML VIAL IV SCH (09:00)
[2020-05-15] MEDS ORDERED: HYDROcodone/APAP 5-325MG 1 EACH TAB PO PRN (12:24)
[2020-05-15] MEDS ORDERED: metFORMIN 500 MG TAB PO SCH (12:45)
[2020-05-15] MEDS ORDERED: SODIUM CHLORIDE 0.9% 1,000 ML IV SCH (12:45)
[2020-05-15] MEDS ORDERED: LOSARTAN 50 MG TAB PO SCH (12:45)
[2020-05-15] MEDS ORDERED: MAGNESIUM SULFATE-D5W PMX 2 GM in DEXTROSE/WATER 1 100ML.BAG IVPB ONE (13:00)
[2020-05-15 14:43] VITALS: BP 117/64; PULSE 77; RESP 20; TEMP 98.2
--- NOTE | 2020-05-15 15:03 | P.HPIM ---
History of Present Illness 51-year-old the female came in with compensative nausea vomiting. Patient says she has this nausea vomiting going on for 2 years patient was extensively evaluated in the past and this patient follows with the general expeditor and outside facility but this time patient felt dehydrated because of which patient came to the hospital patient was given 1.3 L of IV normal saline after which patient was started on normal saline and subsequently was admitted. Patient is presently nothing by mouth patient will be started on soft diet she can tolerate patient will be discharged today. Patient was also complaining of back pain which as per the patient is chronic and upper back as well as lower back no worsening compared to her baseline. Patient blood sugars were high. Patient has hyponatremia as well. Patient has hypomagnesemia. These developed lites will be replaced. Patient has not been taking has a diabetic medications on regular basis patient was on metformin which will be restarted back additionally patient will be given prescription for glipizide low-dose patient may need a higher dose as I don't have enough information patient will be started on a low- dose. Patient doesn't have any significant abdominal pain Review of Systems REVIEW OF SYSTEMS: CONSTITUTIONAL: No fever, no malaise, no fatigue. HEENT: No recent visual problems or hearing problems. Denied any sore throat. CARDIOVASCULAR: No chest pain, orthopnea, PND, no palpitations, no syncope. PULMONARY: No shortness of breath, no cough, no hemoptysis. GASTROINTESTINAL: As mentioned in HPI NEUROLOGICAL: No headaches, no weakness, no numbness. HEMATOLOGICAL: Denies any bleeding or petechiae. GENITOURINARY: Denies any burning micturition, frequency, or urgency. MUSCULOSKELETAL/RHEUMATOLOGICAL: Denies any joint pain, swelling, or any muscle pain. ENDOCRINE: Denies any polyuria or polydipsia. The rest of the 14-point review of systems is negative. Past Medical History Past Medical History: Chest Pain / Angina, Diabetes Mellitus, Hyperlipidemia, Hypertension, Myocardial Infarction ([place]) Additional Past Medical History / Comment(s): Rare migraines, IDDM type II, neuropathy bilateral feet.past uti,bipolar depression Last Myocardial Infarction Date:: 2014 History of Any Multi-Drug Resistant Organisms: MRSA Date of last positivie culture/infection: 2013/MRSA MDRO Source:: abdomen Past Surgical History: Cholecystectomy, Heart Catheterization, Tubal Ligation Additional Past Surgical History / Comment(s): Lorenzo eye sx as child to correct lazy eye, Past Anesthesia/Blood Transfusion Reactions: Postoperative Nausea & Vomiting (PONV) Past Psychological History: Bipolar, Depression Additional Psychological History / Comment(s): Pt resides with her tiffany. She stated she is able to drive but has no vehicle. She gets to appointments thru her insurance company or by bus. She receives psychiatric care thru [facility]. She states she has had fleeting thoughts of suicide regularly for years but stated "i will never act on them". Smoking Status: Current every day smoker Past Alcohol Use History: Rare Additional Past Alcohol Use History / Comment(s): Pt started smoking in 1982 and is currently a half pack a day smoker. Past Drug Use History: None Reported, Marijuana Additional Drug Use History / Comment(s): Pt states she smokes marijuana most days - Past Family History Father Additional Family Medical History / Comment(s): Father had hypoglcemia, bipolar depression. He of an aortic aneurysm rupture in his 70's Mother Family Medical History: Cancer Additional Family Medical History / Comment(s): Mother of lung cancer that metastasized to her brain when she was in her 30's. Medications and Allergies Home Medications Medication Instructions Recorded Confirmed Type Aspirin [Adult Low Dose Aspirin EC] 81 mg PO DAILY 06/04/19 05/15/20 History Atorvastatin [Lipitor] 40 mg PO HS 06/04/19 05/15/20 History metFORMIN HCL 1,000 mg PO BID 07/30/19 05/15/20 History HYDROcodone/APAP 5-325MG [[place] 1 tab PO Q4-6H PRN 04/12/20 05/15/20 History 5-325] Losartan [Cozaar] 50 mg PO BID #60 tab 04/15/20 05/15/20 Rx Omeprazole 20 mg PO BID-W/MEALS 30 Days #30 05/15/20 05/15/20 Rx tablet. glipiZIDE [Glucotrol] 2.5 mg PO AC-BID #60 tablet 05/15/20 Rx Allergies Allergy/AdvReac Type Severity Reaction Status Date / Time sucralose AdvReac Intermediate Nausea & Verified 05/15/20 07:17 [From Splenda (sucralose)] Vomiting & Diarrhea Physical Exam Vitals: Vital Signs Temp Pulse Pulse Resp BP BP Pulse Ox 05/15/20 14:41 98.2 F 77 20 117/64 97 05/15/20 06:15 98.1 F 70 18 191/98 99 05/15/20 05:58 98.2 F 71 20 182/86 97 05/15/20 05:06 81 20 168/93 97 05/15/20 04:22 79 20 159/82 96 05/15/20 03:48 71 22 169/79 97 05/15/20 03:30 200/118 05/15/20 03:02 97.9 F 84 20 200/94 98 Intake and Output 05/14/20 05/15/20 05/15/20 22:59 06:59 14:59 Other: Weight 81.647 kg PHYSICAL EXAMINATION: GENERAL: The patient is alert and oriented x3, not in any acute distress. Well developed, well nourished. HEENT: Pupils are round and equally reacting to light. EOMI. No scleral icterus. No conjunctival pallor. Normocephalic, atraumatic. No pharyngeal erythema. No thyromegaly. CARDIOVASCULAR: S1 and S2 present. No murmurs, rubs, or gallops. PULMONARY: Chest is clear to auscultation, no wheezing or crackles. ABDOMEN: Soft, nontender, nondistended, normoactive bowel sounds. No palpable organomegaly. MUSCULOSKELETAL: No joint swelling or deformity. EXTREMITIES: No cyanosis, clubbing, or pedal edema. NEUROLOGICAL: Gross neurological examination did not reveal any focal deficits. SKIN: No rashes. Results CBC & Chem 7: 05/15/20 03:25 05/15/20 03:25 Labs: Abnormal Lab Results - Last 24 Hours (Table) 05/15/20 05/15/20 05/15/20 Range/Units 03:18 03:25 03:25 Lymphocytes # 0.7 L (1.0-4.8) k/uL APTT 21.6 L (22.0-30.0) sec Sodium (137-145) mmol/L Creatinine (0.52-1.04) mg/dL Glucose (74-99) mg/dL POC Glucose (mg/dL) 334 H (75-99) mg/dL Magnesium (1.6-2.3) mg/dL Creatine Kinase (30-135) U/L 05/15/20 05/15/20 05/15/20 Range/Units 03:25 04:56 07:19 Lymphocytes # (1.0-4.8) k/uL APTT (22.0-30.0) sec Sodium 132 L (137-145) mmol/L Creatinine 0.44 L (0.52-1.04) mg/dL Glucose 355 H (74-99) mg/dL POC Glucose (mg/dL) 298 H 287 H (75-99) mg/dL Magnesium 1.4 L (1.6-2.3) mg/dL Creatine Kinase 170 H (30-135) U/L Thrombosis Risk Factor Assmnt - Choose All That Apply Any of the Below Risk Factors Present?: Yes Each Factor Represents 1 point: Abnormal pulmonary function (COPD), Obesity (BMI >25) Other Risk Factors: No Other congenital or acquired thrombophilia - If yes, enter type in comment: No Thrombosis Risk Factor Assessment Total Risk Factor Score: 2 Thrombosis Risk Factor Assessment Level: Low Risk Assessment and Plan Plan: -Nausea vomiting: Probably secondary to peptic is a disease or gastritis. Patient was given Protonix and if patient can tolerate his diet patient will be discharged. Patient the apparently had a mass in the pancreas which is being addressed by her general expeditor and he appears to be a noncancerous mass pa in patient's pancreatic enzymes are within normal limits. -Low back pain and upper back pain: At baseline patient doesn't have any radicular symptoms or weakness. -Type 2 diabetes mellitus uncontrolled elevated blood sugars patient was started on glipizide will be resumed on metformin further titration of these medications as per primary care physician -Hyperlipidemia -Hypertension -Coronary artery disease -Hyponatremia hypovolemic hyponatremia and pseudohyponatremia from hyperglycemia. Improved expected to improve with IV fluids. -Continued nicotine use: Counseling was provided
--- NOTE | 2020-05-15 15:03 | P.DS ---
Providers Date of admission: 05/15/20 05:15 Attending physician: Andre Leon Primary care physician: Senthil Valencia [facility] Course: Refer to my history of present illness for further details Patient Condition at Discharge: Fair Plan - Discharge Summary Discharge Rx Participant: No New Discharge Prescriptions: New glipiZIDE [Glucotrol] 2.5 mg PO AC-BID #60 tablet Continue Atorvastatin [Lipitor] 40 mg PO HS Aspirin [Adult Low Dose Aspirin EC] 81 mg PO DAILY metFORMIN HCL 1,000 mg PO BID HYDROcodone/APAP 5-325MG [[place] 5-325] 1 tab PO Q4-6H PRN PRN Reason: Pain Losartan [Cozaar] 50 mg PO BID #60 tab Changed Omeprazole 20 mg PO BID-W/MEALS 30 Days #30 tablet.dr Discharge Medication List Aspirin [Adult Low Dose Aspirin EC] 81 mg PO DAILY 06/04/19 [History] Atorvastatin [Lipitor] 40 mg PO HS 06/04/19 [History] metFORMIN HCL 1,000 mg PO BID 07/30/19 [History] HYDROcodone/APAP 5-325MG [[place] 5-325] 1 tab PO Q4-6H PRN 04/12/20 [History] Losartan [Cozaar] 50 mg PO BID #60 tab 04/15/20 [Rx] Omeprazole 20 mg PO BID-W/MEALS 30 Days #30 tablet. 05/15/20 [Rx] glipiZIDE [Glucotrol] 2.5 mg PO AC-BID #60 tablet 05/15/20 [Rx] Follow up Appointment(s)/Referral(s): Senthil Valencia MD [Primary Care Provider] - 3 Days
[2020-05-15] MEDS: MAGNESIUM SULFATE-D5W PMX 1 GM in DEXTROSE/WATER 1 100ML.BAG IVPB SCH ×2 (15:21→16:40)
[2020-05-15] MEDS ORDERED: ATORVASTATIN 40 MG TAB PO SCH (21:00)
[2020-05-16] MEDS ORDERED: ASPIRIN 81 MG PO SCH (09:00)
== END 2020-05-15 19:19 | disposition home or self-care (01) ==
LOC: EC 02:21 → 6NMEDSUR 05:15
PROVIDERS: ADMIT Hospitalist; ATTEND Hospitalist
DX: R11.2 Nausea with vomiting, unspecified (principal); E11.65 Type 2 diabetes mellitus with hyperglycemia; K86.9 Disease of pancreas, unspecified; E86.0 Dehydration; E86.1 Hypovolemia; E87.1 Hypo-osmolality and hyponatremia; E83.42 Hypomagnesemia; E78.5 Hyperlipidemia, unspecified; I10 Essential (primary) hypertension; F17.210 Nicotine dependence, cigarettes, uncomplicated; M79.10 Myalgia, unspecified site; R63.0 Anorexia; G43.909 Migraine, unspecified, not intractable, without status migrainosus; F31.30 Bipolar disorder, current episode depressed, mild or moderate severity, unspecified; I25.10 Atherosclerotic heart disease of native coronary artery without angina pectoris; G89.29 Other chronic pain; M54.5 Low back pain; M54.6 Pain in thoracic spine; E11.42 Type 2 diabetes mellitus with diabetic polyneuropathy; Z91.14 Patient's other noncompliance with medication regimen; R45.851 Suicidal ideations; E66.9 Obesity, unspecified; Z68.28 Body mass index [BMI] 28.0-28.9, adult; Z79.84 Long term (current) use of oral hypoglycemic drugs; Z79.891 Long term (current) use of opiate analgesic; Z79.82 Long term (current) use of aspirin; Z79.899 Other long term (current) drug therapy; Z91.048 Other nonmedicinal substance allergy status; I25.2 Old myocardial infarction; Z87.440 Personal history of urinary (tract) infections; Z86.14 Personal history of Methicillin resistant Staphylococcus aureus infection; Z90.49 Acquired absence of other specified parts of digestive tract; Z98.51 Tubal ligation status; Z82.49 Family history of ischemic heart disease and other diseases of the circulatory system; Z80.1 Family history of malignant neoplasm of trachea, bronchus and lung; Z80.8 Family history of malignant neoplasm of other organs or systems; Z81.8 Family history of other mental and behavioral disorders
CPT/HCPCS: 96365; 96366; 96361; 96375; 99285; 36415; 93005; 80053; 82550; 83605; 83690; 83735; 84100; 84484; 85025; 85610; 85730; G0378; J2270; J2405; J3475; C9113

== ENCOUNTER → 2020-09-04 | Outpatient (CLI) | payer OTHER ==
--- NOTE | 2020-09-05 13:59 | MM ---
Reason for exam: screening (asymptomatic). Last mammogram was performed 5 years and 6 months ago. History: Family history of breast cancer in paternal grandmother at age 90. Physical Findings: A clinical breast exam by your physician is recommended on an annual basis and results should be correlated with mammographic findings. MG Screening Mammo w CAD Bilateral CC and MLO view(s) were taken. Prior study comparison: February 20, 2015, mammogram, performed at [facility]. December 07, 2012, mammogram, performed at [facility]. There are scattered fibroglandular densities. No significant changes when compared with prior studies. ASSESSMENT: Negative, BI-RAD 1 RECOMMENDATION: Routine screening mammogram of both breasts in 1 year.
== END | disposition home or self-care (01) ==
LOC: RADMAMWWP 10:52
PROVIDERS: ATTEND Family Medicine
DX: Z12.31 Encounter for screening mammogram for malignant neoplasm of breast (principal); Z80.3 Family history of malignant neoplasm of breast
CPT/HCPCS: 77067

== ENCOUNTER 2021-09-10 13:07 | Emergency (ER) | payer OTHER ==
[2021-09-10 13:45] VITALS: BP 178/96; PULSE 72; RESP 20; TEMP 98.1
[2021-09-10] MEDS ORDERED: LIDOCAINE 1% INJ 10MG/ML (5 ML VIAL-PF) SQ ONE (15:14)
[2021-09-10] MEDS ORDERED: LIDOCAINE-PRILOCAINE 2.5-2.5% CREAM 5 GM TUBE TOPICAL STA (15:15)
[2021-09-10] MEDS ORDERED: SULFAMETHOX-TMP 800-160MG 1 EACH TAB PO STA (16:08)
--- NOTE | 2021-09-10 16:14 | ED ---
Skin/Abscess/FB HPI - General Chief complaint: Skin/Abscess/Foreign Body Stated complaint: Lump in armpit Time Seen by Provider: 09/10/21 14:59 Source: patient Mode of arrival: ambulatory Limitations: no limitations - History of Present Illness Initial comments: Patient is a 51-year-old female presenting with chief complaint of abscess of the right underarm. Patient states that this has been present for the last 3 days. It has been growing in size and feels very firm. It is tender to the touch and painful when moving the arm. Patient denies any fever, chills, nausea, vomiting, chest pain, shortness of breath, numbness, tingling, headache, neck pain, vision or hearing changes, abdominal pain. - Related Data Home Medications Medication Instructions Recorded Confirmed Aspirin [Adult Low Dose Aspirin EC] 81 mg PO DAILY 06/04/19 05/15/20 Atorvastatin [Lipitor] 40 mg PO HS 06/04/19 05/15/20 metFORMIN HCL [Glucophage] 1,000 mg PO BID 07/30/19 05/15/20 HYDROcodone/APAP 5-325MG [[place] 1 tab PO Q4-6H PRN 04/12/20 05/15/20 5-325] Previous Rx's Medication Instructions Recorded Losartan [Cozaar] 50 mg PO BID #60 tab 04/15/20 Omeprazole 20 mg PO BID-W/MEALS 30 Days #30 05/15/20 tablet. glipiZIDE [Glucotrol] 2.5 mg PO AC-BID #60 tablet 05/15/20 Sulfamethox-Tmp 800-160Mg [Bactrim 1 tab PO Q12HR 7 Days #14 tab 09/10/21 DS 800-160 mg] Allergies Allergy/AdvReac Type Severity Reaction Status Date / Time sucralose AdvReac Intermediate Nausea & Verified 09/10/21 13:45 [From Splenda (sucralose)] Vomiting & Diarrhea Review of Systems ROS Statement: Those systems with pertinent positive or pertinent negative responses have been documented in the HPI. ROS Other: All systems not noted in ROS Statement are negative. Past Medical History Past Medical History: Chest Pain / Angina, Diabetes Mellitus, Hyperlipidemia, Hypertension, Myocardial Infarction ([place]) Additional Past Medical History / Comment(s): Rare migraines, IDDM type II, neuropathy bilateral feet.past uti,bipolar depression Last Myocardial Infarction Date:: 2014 History of Any Multi-Drug Resistant Organisms: MRSA Date of last positivie culture/infection: 2013/MRSA MDRO Source:: abdomen Past Surgical History: Cholecystectomy, Heart Catheterization, Tubal Ligation Additional Past Surgical History / Comment(s): Lorenzo eye sx as child to correct lazy eye, Past Anesthesia/Blood Transfusion Reactions: Postoperative Nausea & Vomiting (PONV) Past Psychological History: Bipolar, Depression Smoking Status: Current every day smoker Past Alcohol Use History: Rare Past Drug Use History: None Reported, Marijuana - Past Family History Father Additional Family Medical History / Comment(s): Father had hypoglcemia, bipolar depression. He of an aortic aneurysm rupture in his 70's Mother Family Medical History: Cancer Additional Family Medical History / Comment(s): Mother of lung cancer that metastasized to her brain when she was in her 30's. General Exam Limitations: no limitations General appearance: alert, in no apparent distress Head exam: Present: atraumatic, normocephalic, normal inspection Eye exam: Present: normal appearance, EOMI. Absent: scleral icterus Neck exam: Present: normal inspection Respiratory exam: Present: normal lung sounds bilaterally. Absent: respiratory distress, wheezes, rales, rhonchi, stridor Cardiovascular Exam: Present: regular rate, normal rhythm, normal heart sounds. Absent: systolic murmur, diastolic murmur, rubs, gallop, clicks Neurological exam: Present: alert, oriented X3, CN II-XII intact Psychiatric exam: Present: normal affect, normal mood Expanded Type of lesion: Present: abscess (5 cm x 5 cm, slightly erythematous, indurated with no drainage, located on the right underarm) Course Vital Signs 09/10/21 13:43 Temperature 98.1 F Pulse Rate 72 Respiratory 20 Rate Blood Pressure 178/96 O2 Sat by Pulse 96 Oximetry Medical Decision Making - Medical Decision Making Patient is a 51-year-old female presenting with chief complaint of abscess to the right underarm. Patient states has been present for the last 3 days, and is growing in size and becoming more firm and tender. On examination there is a 5 cm x 5 cm abscess of the right underarm. It is mostly indurated, there is a small area of fluctuance where drainage can be attempted. I attempted to needle aspirate, this was unsuccessful. Patient was placed on Bactrim and instructed to utilize hot compresses to help draw pus up to the surface to be expressed. I instructed her to follow up with her PCP in one to 2 days. Report back to ER if any worsening symptoms. Discussed return parameters alarm symptoms. Patient conveyed verbal understanding and agreed to the plan. The attending is Dr. Catalan. Disposition Clinical Impression: Abscess Disposition: HOME SELF-CARE Condition: Good Instructions (If sedation given, give patient instructions): Abscess (ED) Additional Instructions: Take medication as prescribed. Keep the area clean, apply warm compresses edel ral times a day to help draw infection to the surface to be expressed. Follow- up with PCP in one to 2 days. Report back to ER if any worsening symptoms. Prescriptions: Sulfamethox-Tmp 800-160Mg [Bactrim DS 800-160 mg] 1 tab PO Q12HR 7 Days #14 tab Is patient prescribed a controlled substance at d/c from ED?: No Referrals: Senthil Valencia MD [Primary Care Provider] - 1-2 days Time of Disposition: 16:13
== END 2021-09-10 16:29 | disposition home or self-care (01) ==
LOC: EC 13:07
DX: L02.411 Cutaneous abscess of right axilla (principal); E78.5 Hyperlipidemia, unspecified; I10 Essential (primary) hypertension; I25.2 Old myocardial infarction; E11.40 Type 2 diabetes mellitus with diabetic neuropathy, unspecified; G43.909 Migraine, unspecified, not intractable, without status migrainosus; F31.9 Bipolar disorder, unspecified; F17.200 Nicotine dependence, unspecified, uncomplicated; Z72.89 Other problems related to lifestyle; Z79.82 Long term (current) use of aspirin; Z79.84 Long term (current) use of oral hypoglycemic drugs; Z79.899 Other long term (current) drug therapy; Z91.018 Allergy to other foods
CPT/HCPCS: 99283; J2001

== ENCOUNTER 2021-09-26 12:49 | Emergency (ER) | payer OTHER ==
[2021-09-26 13:26] VITALS: TEMP 98
--- NOTE | 2021-09-26 15:43 | ED ---
Skin/Abscess/FB HPI - General Chief complaint: Skin/Abscess/Foreign Body Stated complaint: Abscess under R Arm/Revisit Time Seen by Provider: 09/26/21 15:00 Source: patient Mode of arrival: ambulatory Limitations: no limitations - History of Present Illness Initial comments: Patient is a 51-year-old female presents to the emergency room with c omplaint of worsening abscess to her right axilla. She was here in the emergency room approximately 2 ago where she was treated with oral antibiotics and underwent incision and drainage. She reports she contacted her primary care provider advised that no further treatment or follow-up appointment was needed and consequently she has not seen anyone since her discharge from her the ER 2 weeks ago. She completed her course of antibiotics as prescribed and states that the swelling had gone down some however recently she has had an increase in drainage and an increase in swelling size from the abscess. She reports that she has a history of abscesses to her groin and underneath her pannus with a history of MRSA. She reports that she has no side effects of her antibiotics. She denies any fevers, chills, nausea, vomiting, diarrhea, chest pain, shortness of breath or other concerns of sepsis. She is a past medical history significant for diabetes, hypertension, hyperlipidemia, recurrent abscesses, CAD, depression, and migraines. She reports that her blood sugar has been slightly elevated due to pain in her axilla. She states that her blood sugars have been well- controlled. She reports that she has taken her medications this morning. She denies any other complaints or concerns this time. - Related Data Home Medications Medication Instructions Recorded Confirmed Aspirin [Adult Low Dose Aspirin EC] 81 mg PO DAILY 06/04/19 05/15/20 Atorvastatin [Lipitor] 40 mg PO HS 06/04/19 05/15/20 metFORMIN HCL [Glucophage] 1,000 mg PO BID 07/30/19 05/15/20 HYDROcodone/APAP 5-325MG [[place] 1 tab PO Q4-6H PRN 04/12/20 05/15/20 5-325] Previous Rx's Medication Instructions Recorded Losartan [Cozaar] 50 mg PO BID #60 tab 04/15/20 Omeprazole 20 mg PO BID-W/MEALS 30 Days #30 05/15/20 tablet. glipiZIDE [Glucotrol] 2.5 mg PO AC-BID #60 tablet 05/15/20 Sulfamethox-Tmp 800-160Mg [Bactrim 1 tab PO Q12HR 7 Days #14 tab 09/10/21 DS 800-160 mg] clindamycin HCL [Cleocin] 300 mg PO Q6HR 10 Days #40 cap 09/26/21 Allergies Allergy/AdvReac Type Severity Reaction Status Date / Time sucralose AdvReac Intermediate Nausea & Verified 09/26/21 13:26 [From Splenda (sucralose)] Vomiting & Diarrhea Review of Systems ROS Statement: Those systems with pertinent positive or pertinent negative responses have been documented in the HPI. ROS Other: All systems not noted in ROS Statement are negative. Past Medical History Past Medical History: Chest Pain / Angina, Diabetes Mellitus, Hyperlipidemia, Hypertension, Myocardial Infarction ([place]) Additional Past Medical History / Comment(s): Rare migraines, IDDM type II, neuropathy bilateral feet.past uti,bipolar depression Last Myocardial Infarction Date:: 2014 History of Any Multi-Drug Resistant Organisms: MRSA Date of last positivie culture/infection: 2013/MRSA MDRO Source:: abdomen Past Surgical History: Cholecystectomy, Heart Catheterization, Tubal Ligation Additional Past Surgical History / Comment(s): Lorenzo eye sx as child to correct lazy eye, Past Anesthesia/Blood Transfusion Reactions: Postoperative Nausea & Vomiting (PONV) Past Psychological History: Bipolar, Depression Smoking Status: Current every day smoker Past Alcohol Use History: Rare Past Drug Use History: None Reported, Marijuana - Past Family History Father Additional Family Medical History / Comment(s): Father had hypoglcemia, bipolar depression. He of an aortic aneurysm rupture in his 70's Mother Family Medical History: Cancer Additional Family Medical History / Comment(s): Mother of lung cancer that metastasized to her brain when she was in her 30's. General Exam Limitations: no limitations General appearance: alert, in no apparent distress Head exam: Present: atraumatic, normocephalic, normal inspection Eye exam: Present: normal appearance, PERRL, EOMI. Absent: scleral icterus, conjunctival injection, periorbital swelling ENT exam: Present: normal exam, mucous membranes moist Neck exam: Present: normal inspection. Absent: tenderness, meningismus, lymphadenopathy Respiratory exam: Present: normal lung sounds bilaterally Cardiovascular Exam: Present: regular rate, normal rhythm, normal heart sounds. Absent: systolic murmur, diastolic murmur, rubs, gallop, clicks GI/Abdominal exam: Present: soft, normal bowel sounds. Absent: distended, tenderness, guarding, rebound, rigid Extremities exam: Present: normal inspection, full ROM, normal capillary refill. Absent: tenderness, pedal edema, joint swelling, calf tenderness Back exam: Present: normal inspection Neurological exam: Present: alert, oriented X3, CN II-XII intact Psychiatric exam: Present: normal affect, normal mood Skin exam: Present: other (Abscess right axilla ) Course Vital Signs 09/26/21 13:24 Temperature 98.0 F Pulse Rate 76 Respiratory 18 Rate Blood Pressure 135/83 O2 Sat by Pulse 97 Oximetry - Reevaluation(s) Reevaluation #1: Leukocytosis mild. No evidence of sepsis. Will discharge home on oral antibiotics. Status post incision and drainage. Tolerated well. 09/26/21 17:36 Time: 17:36 Procedures - Incision & Drainage Consent Obtained: written consent Site: other (axilla) Anesthetic Used: lidocaine 1% I&D Cleaning Method: Betadine Scalpel Used: #11 I&D Drainage Obtained: Pus, Blood Culture Obtained?: Yes Complications: other (no significant complication) Patient Tolerated Procedure: well Medical Decision Making - Medical Decision Making Previous infection blood cultures culture of wound CBC and CMP obtained. No need for diagnostic imaging at this time. - Lab Data Result diagrams: 09/26/21 15:48 09/26/21 15:48 Lab Results 09/26/21 09/26/21 Range/Units 15:48 15:48 WBC 12.7 H (3.8-10.6) k/uL RBC 5.38 (3.80-5.40) m/uL Hgb 15.9 (11.4-16.0) gm/dL Hct 49.0 H (34.0-46.0) % MCV 91.2 (80.0-100.0) fL MCH 29.5 (25.0-35.0) pg MCHC 32.4 (31.0-37.0) g/dL RDW 12.1 (11.5-15.5) % Plt Count 247 (150-450) k/uL MPV 8.4 Neutrophils % 80 % Lymphocytes % 14 % Monocytes % 4 % Eosinophils % 1 % Basophils % 1 % Neutrophils # 10.2 H (1.3-7.7) k/uL Lymphocytes # 1.7 (1.0-4.8) k/uL Monocytes # 0.5 (0-1.0) k/uL Eosinophils # 0.1 (0-0.7) k/uL Basophils # 0.1 (0-0.2) k/uL Sodium 130 L (137-145) mmol/L Potassium 4.4 (3.5-5.1) mmol/L Chloride 97 L (98-107) mmol/L Carbon Dioxide 26 (22-30) mmol/L Anion Gap 7 mmol/L BUN 6 L (7-17) mg/dL Creatinine 0.52 (0.52-1.04) mg/dL Est GFR (CKD-EPI)AfAm >90 (>60 ml/min/1.73 sqM) Est GFR (CKD-EPI)NonAf >90 (>60 ml/min/1.73 sqM) Glucose 438 H (74-99) mg/dL Calcium 9.0 (8.4-10.2) mg/dL Total Bilirubin 0.4 (0.2-1.3) mg/dL AST 18 (14-36) U/L ALT 14 (4-34) U/L Alkaline Phosphatase 101 (38-126) U/L Total Protein 7.0 (6.3-8.2) g/dL Albumin 3.9 (3.5-5.0) g/dL Disposition Clinical Impression: Abscess Disposition: HOME SELF-CARE Condition: Stable Instructions (If sedation given, give patient instructions): Abscess Incision and Drainage (ED), Abscess (ED) Additional Instructions: Please complete all antibiotics as prescribed. Keep wounds clean and dry. Encouraged good glycemic control to help improve infection please follow-up with your primary care provider for continued care. Emergency department will call if cultures of wound or blood positive for abnormalities. Return parameters to the emergency room reviewed. Please return to the emergency room if needed. Prescriptions: clindamycin HCL [Cleocin] 300 mg PO Q6HR 10 Days #40 cap Is patient prescribed a controlled substance at d/c from ED?: No Referrals: Senthil Valencia MD [Primary Care Provider] - 1-2 days Time of Disposition: 17:39
[2021-09-26 16:27] LABS: Basophils # (A) 0.1 k/uL (0-0.2); Basophils % (A) 1 %; Eosinophils # (A) 0.1 k/uL (0-0.7); Eosinophils % (A) 1 %; HGB 15.9 gm/dL (11.4-16.0); Lymphocytes # (A) 1.7 k/uL (1.0-4.8); Lymphocytes % (A) 14 %; MCH 29.5 pg (25.0-35.0); MCHC 32.4 g/dL (31.0-37.0); MCV 91.2 fL (80.0-100.0); Mean Platelet Volume 8.4; Monocytes # (A) 0.5 k/uL (0-1.0); Monocytes % (A) 4 %; Neutrophils # (A) 10.2 k/uL (1.3-7.7); Neutrophils % (A) 80 %; Platelet Count 247 k/uL (150-450); RBC 5.38 m/uL (3.80-5.40); RDW 12.1 % (11.5-15.5); WBC 12.7 k/uL (3.8-10.6)
[2021-09-26 16:43] LABS: ALT 14 U/L (4-34); AST 18 U/L (14-36); African American GFR (CKD) >90 (>60 ml/min/1.73 sqM); Albumin 3.9 g/dL (3.5-5.0); Alkaline Phosphatase 101 U/L (38-126); Anion Gap 7 mmol/L; Blood Urea Nitrogen 6 mg/dL (7-17); Carbon Dioxide 26 mmol/L (22-30); Chloride 97 mmol/L (98-107); Glucose 438 mg/dL (74-99); Non-African American GFR(CKD) >90 (>60 ml/min/1.73 sqM); Potassium 4.4 mmol/L (3.5-5.1); Sodium 130 mmol/L (137-145); Total Bilirubin 0.4 mg/dL (0.2-1.3)
[2021-09-26 17:59] VITALS: BP 157/77; PULSE 73; RESP 15
== END 2021-09-26 17:59 | disposition home or self-care (01) ==
LOC: EC 12:49
DX: L02.413 Cutaneous abscess of right upper limb (principal); E11.9 Type 2 diabetes mellitus without complications; I10 Essential (primary) hypertension; E78.5 Hyperlipidemia, unspecified; F17.200 Nicotine dependence, unspecified, uncomplicated
CPT/HCPCS: 36415; 80053; 85025; 87040; 87070; 87205

== ENCOUNTER → 2022-08-11 | Outpatient (CLI) | payer OTHER ==
--- NOTE | 2022-08-11 16:14 | CT ---
EXAMINATION TYPE: CT shoulder RT wo con CT DLP: 339.8 mGycm, Automated exposure control for dose reduction was used. DATE OF EXAM: 08/11/2022 4:01 PM COMPARISON: CLINICAL INDICATION:Female, 52 years old with history of S42.211A UNSP DISP FX OF SURGICAL NECK OF [facility]; [facility], fall, fx of surgical neck TECHNIQUE: Axial images were obtained of the right shoulder without the use of IV contrast. Addition al coronal and sagittal reformatted images and soft tissue and bone window were obtained for review. 3-D reconstruction was created on a separate workstation. FINDINGS: Acute comminuted mildly displaced fracture of the humeral head extending into the neck. The re is some mild shortening identified. No dislocation. There is some surrounding fat stranding/edema of the soft tissues of the right shoulder with small joint effusion. Glenoid appears intact. Mild deg enerative changes of the AC joint. IMPRESSION: Acute comminuted mildly displaced fracture of the humeral head extending into the neck.
== END | disposition home or self-care (01) ==
LOC: RADCTMAIN 15:33
PROVIDERS: ATTEND Orthopaedic Surgery
DX: S42.211A Unspecified displaced fracture of surgical neck of right humerus, initial encounter for closed fracture (principal)

== ENCOUNTER 2023-05-12 03:40 | Emergency (ER) | payer OTHER ==
[2023-05-12 04:37] VITALS: BP 150/84; PULSE 100; RESP 18; TEMP 98.5
[2023-05-12 04:43] LABS: Basophils % (A) 0 %; Eosinophils % (A) 0 %; HCT 46.9 % (34.0-46.0); HGB 16.3 gm/dL (11.4-16.0); Lymphocytes # (A) 1.3 k/uL (1.0-4.8); Lymphocytes % (A) 13 %; MCH 30.2 pg (25.0-35.0); MCHC 34.8 g/dL (31.0-37.0); MCV 86.8 fL (80.0-100.0); Mean Platelet Volume 7.4; Monocytes # (A) 0.6 k/uL (0-1.0); Monocytes % (A) 6 %; Neutrophils # (A) 8.1 k/uL (1.3-7.7); Neutrophils % (A) 80 %; Platelet Count 268 k/uL (150-450); RDW 12.2 % (11.5-15.5); WBC 10.2 k/uL (3.8-10.6)
[2023-05-12 04:52] LABS: ALT 29 U/L (4-34); AST 35 U/L (14-36); African American GFR (CKD) >90 (>60 ml/min/1.73 sqM); Albumin 4.7 g/dL (3.5-5.0); Alkaline Phosphatase 88 U/L (38-126); Anion Gap 14 mmol/L; Blood Urea Nitrogen 22 mg/dL (7-17); Calcium 9.8 mg/dL (8.4-10.2); Carbon Dioxide 22 mmol/L (22-30); Chloride 100 mmol/L (98-107); Glucose 395 mg/dL (74-99); Non-African American GFR(CKD) >90 (>60 ml/min/1.73 sqM); Potassium 3.8 mmol/L (3.5-5.1); Sodium 136 mmol/L (137-145); Total Bilirubin 0.9 mg/dL (0.2-1.3)
== END 2023-05-12 05:25 | disposition left against medical advice (07) ==
LOC: EC 03:40
DX: R11.2 Nausea with vomiting, unspecified (principal); Z53.21 Procedure and treatment not carried out due to patient leaving prior to being seen by health care provider
CPT/HCPCS: 36415; 80053; 82009; 83605; 85025; 99499

== ENCOUNTER 2024-10-14 00:47 | Emergency (ER) | payer OTHER ==
[2024-10-14 00:50] VITALS: BP 196/112; PULSE 87; RESP 18; TEMP 97.8
--- NOTE | 2024-10-14 01:24 | ED ---
General Adult HPI - General Chief complaint: Recheck/Abnormal Lab/Rx Stated complaint: Abdominal Pain, Constipation Time Seen by Provider: 10/14/24 01:02 Source: patient Mode of arrival: ambulatory Limitations: no limitations - History of Present Illness Initial comments: This patient is a 54-year-old woman who presents with complaint of perianal/rectal pain. She states that it has been about 4 days since she had a bowel movement and that now she feels a fullness and pain in the rectum/anus. She states that she cannot pass stool due to pain. She states that she has noted some dark streaks but she was taking Pepto abysmal for an upset stomach. She has not noted passing any blood. -: days(s) Radiation: non-radiation Quality: sharp Consistency: constant Improves with: none Worsens with: none Treatments Prior to Arrival: none - Related Data Home Medications Medication Instructions Recorded Confirmed Aspirin [Adult Low Dose Aspirin EC] 81 mg PO DAILY 06/04/19 05/15/20 Atorvastatin [Lipitor] 40 mg PO HS 06/04/19 05/15/20 metFORMIN HCL [Glucophage] 1,000 mg PO BID 07/30/19 05/15/20 HYDROcodone/APAP 5-325MG [Garland 1 tab PO Q4-6H PRN 04/12/20 05/15/20 5-325] Previous Rx's Medication Instructions Recorded Losartan [Cozaar] 50 mg PO BID #60 tab 04/15/20 Omeprazole 20 mg PO BID-W/MEALS 30 Days #30 05/15/20 tablet. glipiZIDE [Glucotrol] 2.5 mg PO AC-BID #60 tablet 05/15/20 Sulfamethox-Tmp 800-160Mg [Bactrim 1 tab PO Q12HR 7 Days #14 tab 09/10/21 DS 800-160 mg] clindamycin HCL [Cleocin] 300 mg PO Q6HR 10 Days #40 cap 09/26/21 Allergies Allergy/AdvReac Type Severity Reaction Status Date / Time sucralose AdvReac Intermediate Nausea & Verified 10/14/24 00:50 [From Splenda (sucralose)] Vomiting & Diarrhea Review of Systems ROS Statement: Those systems with pertinent positive or pertinent negative responses have been documented in the HPI. ROS Other: All systems not noted in ROS Statement are negative. Constitutional: Denies: fever Respiratory: Denies: cough, dyspnea Cardiovascular: Denies: chest pain, palpitations Gastrointestinal: Reports: constipation. Denies: abdominal pain, nausea, vomiting, diarrhea, melena, hematochezia Genitourinary: Denies: dysuria, hematuria Musculoskeletal: Denies: back pain Skin: Denies: rash Neurological: Denies: headache, weakness Past Medical History Past Medical History: Chest Pain / Angina, Diabetes Mellitus, Hyperlipidemia, Hypertension, Myocardial Infarction ([place]) Additional Past Medical History / Comment(s): Rare migraines, IDDM type II, neuropathy bilateral feet.past uti,bipolar depression Last Myocardial Infarction Date:: 2014 History of Any Multi-Drug Resistant Organisms: MRSA Date of last positivie culture/infection: 09/26/21 MDRO Source:: MRSA AXILLA Past Surgical History: Cholecystectomy, Heart Catheterization, Tubal Ligation Additional Past Surgical History / Comment(s): Lorenzo eye sx as child to correct lazy eye, Past Anesthesia/Blood Transfusion Reactions: Postoperative Nausea & Vomiting (PONV) Past Psychological History: Bipolar, Depression Smoking Status: Current every day smoker Past Alcohol Use History: Rare Past Drug Use History: Marijuana - Past Family History Father Additional Family Medical History / Comment(s): Father had hypoglcemia, bipolar depression. He of an aortic aneurysm rupture in his 70's Mother Family Medical History: Cancer Additional Family Medical History / Comment(s): Mother of lung cancer that metastasized to her brain when she was in her 30's. General Exam Limitations: no limitations General appearance: alert, in no apparent distress Head exam: Present: atraumatic, normocephalic Eye exam: Present: normal appearance. Absent: scleral icterus, conjunctival injection Respiratory exam: Present: normal lung sounds bilaterally. Absent: respiratory distress, wheezes, rales, rhonchi, stridor Cardiovascular Exam: Present: regular rate, normal rhythm, normal heart sounds. Absent: systolic murmur, diastolic murmur, rubs, gallop GI/Abdominal exam: Present: soft. Absent: distended, tenderness, guarding, rebound, rigid, mass Rectal exam: Present: black stool, fecal impaction, hemorrhoids. Absent: bloody stool, mass, tenderness Back exam: Absent: CVA tenderness (R), CVA tenderness (L) Neurological exam: Present: alert Skin exam: Present: warm, dry, intact, normal color. Absent: rash Course Vital Signs 10/14/24 00:49 Temperature 97.8 F Pulse Rate 87 Respiratory 18 Rate Blood Pressure 196/112 O2 Sat by Pulse 97 Oximetry Medical Decision Making - Medical Decision Making Was pt. sent in by a medical professional or institution (PAULA Pierce, [facility], urgent care, hospital, or shelter...) When possible be specific @ -[No] Did you speak to anyone other than the patient for history (EMS, parent, family, police, friend...)? What history was obtained from this source @ -[No] Did you review nursing and triage notes (agree or disagree)? Why? @ -[I reviewed and agree with nursing and triage notes] Were old charts reviewed (outside hosp., previous admission, EMS record, old EKG, old radiological studies, urgent care reports/EKG's, shelter records)? Report findings @ -[No old charts were reviewed] Differential Diagnosis (chest pain, altered mental status, abdominal pain women, abdominal pain men, vaginal bleeding, weakness, fever, dyspnea, syncope, headache, dizziness, GI bleed, back pain, seizure, CVA, palpatations, mental health, musculoskeletal)? @ -[Differential Abdominal Pain Women: Appendicitis, Cholecystitis, diverticulosis, ischemic bowel, pancreatitis, hepatitis, UTI, gastroenteritis, AAA, incarcerated hernia, bowel obstruction, constipation, inflammatory bowel, hepatitis, peptic ulcer disease, splenic infarction, perforated viscus, vulvitis, ovarian torsion, PID, kidney stone, placenta abruption, this is not meant to be an all-inclusive list EKG interpreted by me (3pts min.). @ -[As above] X-rays interpreted by me (1pt min.). @ -[None done] CT interpreted by me (1pt min.). @ -[None done] U/S interpreted by me (1pt. min.). @ -[None done] What testing was considered but not performed or refused? (CT, X-rays, U/S, labs)? Why? @ -[None] What meds were considered but not given or refused? Why? @ -[None] Did you discuss the management of the patient with other professionals (professionals i.e. PAULA Pierce, [facility], lab, RT, psych nurse, director of social work, vice president medical affairs, teacher, photographic intelligence officer, case advocate)? Give summary @ -[No] Was smoking cessation discussed for >3mins.? @ -[No] Was critical care preformed (if so, how long)? @ -[No] Were there social determinants of health that impacted care today? How? (Homelessness, low income, unemployed, alcoholism, drug addiction, transportation, low edu. Level, literacy, decrease access to med. care, care home, rehab)? @ -[No] Was there de-escalation of care discussed even if they declined (Discuss DNR or withdrawal of care, Hospice)? DNR status @ -[No] What co-morbidities impacted this encounter? (DM, HTN, Smoking, COPD, CAD, Cancer, CVA, ARF, Chemo, Hep., AIDS, mental health diagnosis, sleep apnea, morbid obesity)? @ -[None] Was patient admitted / discharged? Hospital course, mention meds given and route, prescriptions, significant lab abnormalities, going to OR and other pertinent info. @ -[Patient is 54-year-old woman here with lower abdominal pain and constipation. Following the digital rectal exam the patient was able to pass moderate amount of stool, was feeling better and wanted to go home. Undiagnosed new problem with uncertain prognosis? @ -[No] Drug Therapy requiring intensive monitoring for toxicity (Heparin, Nitro, Insulin, Cardizem)? @ -[No] Were any procedures done? @ -[No] Diagnosis/symptom? @ -[Acute constipation Acute, or Chronic, or Acute on Chronic? @ -[Acute Uncomplicated (without systemic symptoms) or Complicated (systemic symptoms)? @ -[Uncomplicated Side effects of treatment? @ -[No] Exacerbation, Progression, or Severe Exacerbation? @ -[No] Poses a threat to life or bodily function? How? (Chest pain, [place], [place], pneumonia, PE, COPD, DKA, ARF, appy, cholecystitis, CVA, Diverticulitis, Homicidal, Suicidal, threat to staff... and all critical care pts) @ -[No] All treatments are based on ideal body weight as in ED triage - Lab Data Lab Results 10/14/24 Range/Units 01:11 Stool Occult Blood Negative (Negative) Disposition Clinical Impression: Fecal impaction Disposition: HOME SELF-CARE Condition: Good Instructions (If sedation given, give patient instructions): Constipation (ED) Is patient prescribed a controlled substance at d/c from ED?: No Referrals: Senthil Valencia MD [Primary Care Provider] - 1-2 days
[2024-10-14] MEDS: ONDANSETRON ODT 4 MG TAB PO STA (01:53)
== END 2024-10-14 02:12 | disposition home or self-care (01) ==
LOC: EC 00:47
DX: K56.41 Fecal impaction (principal); F17.200 Nicotine dependence, unspecified, uncomplicated; Z88.8 Allergy status to other drugs, medicaments and biological substances
CPT/HCPCS: 36415; 82272; 99284

== ENCOUNTER → 2024-10-19 | Outpatient (CLI) | payer OTHER ==
[2024-10-19 15:23] LABS: Basophils # (A) 0.03 X 10*3/uL (0.00-0.10); Basophils % (A) 0.5 %; Eosinophils # (A) 0.12 X 10*3/uL (0.04-0.35); Eosinophils % (A) 1.9 %; HCT 45.8 % (37.2-46.3); HGB 15.1 g/dL (12.0-15.0); Immature Grans, Automated 0.30 %; Lymphocytes # (A) 2.26 X 10*3/uL (0.90-5.00); Lymphocytes % (A) 34.9 %; MCH 29.4 pg (27.0-32.0); MCHC 33.0 g/dL (32.0-37.0); MCV 89.3 FL (80.0-97.0); Monocytes # (A) 0.34 X 10*3/uL (0.20-1.00); Monocytes % (A) 5.3 %; NRBC Per 100 WBC 0 X 10*3/uL (0.00-0.01); Neutrophils # (A) 3.70 X 10*3/uL (1.80-7.70); Neutrophils % (A) 57.1 %; Platelet Count 209 X 10*3/uL (140-440); RBC 5.13 X 10*6/uL (4.10-5.20); RDW 12.0 % (11.5-14.5); WBC 6.47 X 10*3/uL (4.50-10.00)
[2024-10-19 15:43] LABS: ALT 14 U/L (8-44); AST 17 U/L (13-35); Albumin 4.2 g/dL (3.8-4.9); Albumin/Globulin Ratio 1.75 Ratio (1.60-3.17); Alkaline Phosphatase 64 U/L (41-126); Amylase 56 U/L (23-121); Anion Gap 9.30 mmol/L (4.00-12.00); BUN/Creat Ratio 24.50 Ratio (12.00-20.00); Blood Urea Nitrogen 14.7 mg/dL (9.0-27.0); Calcium 9.4 mg/dL (8.7-10.3); Carbon Dioxide 27.7 mmol/L (21.6-31.8); Chloride 104 mmol/L (96-109); Cholesterol 177.00 mg/dL (0.00-200.00); Globulin 2.4 g/dL (1.6-3.3); Glucose 184 mg/dL (70-110); HDL Cholesterol 43.70 mg/dL (40.00-60.00); LDL Cholesterol,Calculated 115.5 mg/dL (0.0-131.0); Lipase 66 U/L (14-63); Potassium 4.4 mmol/L (3.5-5.5); Sodium 141 mmol/L (135-145); Total Protein 6.6 g/dL (6.2-8.2); Triglycerides 89.10 mg/dL (0.00-149.00); VLDL Calculation 17.82 mg/dL (5.00-40.00)
== END | disposition home or self-care (01) ==
LOC: LABWHC1 09:34
PROVIDERS: ATTEND Family Medicine
DX: I10 Essential (primary) hypertension (principal); E11.65 Type 2 diabetes mellitus with hyperglycemia; E11.39 Type 2 diabetes mellitus with other diabetic ophthalmic complication; E11.40 Type 2 diabetes mellitus with diabetic neuropathy, unspecified; E78.5 Hyperlipidemia, unspecified; Z79.4 Long term (current) use of insulin; R11.0 Nausea; K86.9 Disease of pancreas, unspecified
CPT/HCPCS: 36415; 80053; 80061; 82043; 82150; 82570; 83036; 83690; 85025